=== PATIENT | female | born 1950 | race Caucasian/White ===

== ENCOUNTER 2022-01-07 13:30 | Inpatient (IN) | payer MEDICARE, OTHER ==
[2022-01-07 13:49] LABS: Glucose,Whole Blood 180 mg/dL (75-99)
[2022-01-07] MEDS ORDERED: SODIUM CHLORIDE 0.9% 1,000 ML IV STA (14:12)
--- NOTE | 2022-01-07 14:20 | ED ---
General Adult HPI - General Chief complaint: Altered Mental Status Stated complaint: AMS Time Seen by Provider: 01/07/22 13:54 Source: patient, EMS Mode of arrival: EMS Limitations: altered mental status - History of Present Illness Initial comments: Dictation was produced using Captio dictation software. please excuse any grammatical, word or spelling errors. Chief Complaint: 71-year-old female brought in from that [facility] for altered mental status History of Present Illness: Chin is a 71-year-old female she has multiple comorbidities. Patient is currently a resident [facility]. She was recently admitted at [facility] evaluated treated and discharged for cellulitis. Patient had a PICC line that was placed. She is receiving IV and oral antibiotics to treat cellulitis of the right lower extremity. According to nurses to receiving report from EMS patient is brought to the emergency d epartment for borderline low blood pressures, altered mental status for the last 2 days. Patient is a reliable historian. Said she feels a little lightheaded. She also reports feeling foggy in the brain. Denies any numbness or paresthesias. Patient has any constitutional symptoms. Denies any chest pain. She does have a mild cough. Denies any nausea or vomiting. No abdominal pain. Patient refusing evaluation of the right lower leg. She does not want me under any circumstance removing that the bandage to the right lower leg. The ROS documented in this emergency department record has been reviewed and confirmed by me. Those systems with pertinent positive or negative responses have been documented in the HPI. All other systems are other negative and/or noncontributory. PHYSICAL EXAM: General Impression: Alert and oriented x4/4, not in acute distress HEENT: Normocephalic atraumatic, extra-ocular movements intact, pupils equal and reactive to light bilaterally, mucous membranes moist. Cardiovascular: Heart regular rate and rhythm Chest: Able to complete full sentences, no retractions, no tachypnea Abdomen: abdomen soft, non-tender, non-distended, no organomegaly Musculoskeletal: Pulses present and equal in all extremities, no peripheral edema Motor: no focal deficits noted Neurological: CN II-XII grossly intact, no focal motor or sensory deficits noted Skin: Intact with no visualized rashes Psych: Normal affect and mood ED course: 71-year-old female who is currently at [facility] for rehab presents to the ER for borderline low blood pressure and altered mental status 2 days. All signs upon arrival shows blood pressure of 90/64, temperature of 99.9, 90% oxygen on room air. Patient is not cooperative. She tells me not to remove the bandage to right lower extremity where the cellulitis was diagnosed. She states that she does not want me to take the bandage off because her wound was just dressed. The distal toes are exposed and appear to be unremarkable. Patient has mild cough but no other localizing symptoms.Rectal temperature is 11.1. Patient given Tylenol. Maalox documentation was reviewed. Patient is on cefepime. There was no oral antibiotics on patient's medication list. Computed tomography scan of brain is unremarkable. Chest x-ray shows. Chest x- ray shows cardiomegaly with suspected pulmonary edema questionable posterior lung base infiltration the lateral view. Laboratory evaluation obtained. CBC unremarkable. Coag panel is negative. Metabolic panel is within acceptable limits. 4 panel by PCR is negative. Patient is allegedly already on cefepime. Patient be admitted for further care with consultation to infectious disease. - Related Data Home Medications Medication Instructions Recorded Confirmed Albuterol Nebulized [Ventolin 2.5 mg INHALATION RT-Q6H PRN 01/07/22 01/07/22 Nebulized] Aspirin EC [Ecotrin Low Dose] 81 mg PO DAILY@79901/07/22 01/07/22 Atorvastatin [Lipitor] 40 mg PO HS@199901/07/22 01/07/22 Baclofen [Lioresal] 10 mg PO TID@0600,1400,2200 01/07/22 01/07/22 Carvedilol [Coreg] 3.125 mg PO BID@799,199901/07/22 01/07/22 Cefepime [Maxipime] 2 gm IVP TID@0000,0800,1600 01/07/22 01/07/22 Cholecalciferol (Vitamin D3) 250 mcg PO DAILY@79901/07/22 01/07/22 [Vitamin D3 (125 MCG = 5,000 IU)] Cyanocobalamin [Vitamin B-12] 1,000 mcg PO DAILY@0800 01/07/22 01/07/22 Diclofenac Sodium Gel [Voltaren 1 applic TOPICAL QID@00,06,12,18 01/07/22 06/14/22 Gel] Docusate [Colace] 100 mg PO BID@08,199901/07/22 01/07/22 Ferrous Sulfate [Feosol] 325 mg PO DAILY@79901/07/22 01/07/22 Furosemide [Lasix] 20 mg PO DIRECTED 01/07/22 01/07/22 Furosemide [Lasix] 40 mg PO DAILY@79901/07/22 01/07/22 Gabapentin [Neurontin] 600 mg PO TID@0600,1400,219901/07/22 01/07/22 HYDROcodone/APAP 10-325MG [Kennard 1 tab PO Q8H PRN 01/07/22 01/07/22 10-325] Hydrocerin Cream 1 applic TOPICAL BID@08,199901/07/22 01/07/22 Hydroxychloroquine Sulfate 200 mg PO DAILY@89901/07/22 01/07/22 [Plaquenil] Loratadine 10 mg PO DAILY@79901/07/22 01/07/22 Magnesium Chloride-Calcium 64-106 1 tab PO DAILY@79901/07/22 01/07/22 Mg Omeprazole 20 mg PO HS@199901/07/22 01/07/22 Sacubitril/Valsartan [Entresto 24 1 tab PO BID@08,199901/07/22 01/07/22 mg-26 mg Tablet] Spironolactone [Aldactone] 25 mg PO DAILY@0800 PRN 01/07/22 01/07/22 allopurinoL 300 mg PO DAILY@79901/07/22 01/07/22 guaiFENesin-DM 100-10MG/5ML 5 ml PO Q4H PRN 01/07/22 01/07/22 [Robitussin DM] metroNIDAZOLE [Flagyl] 500 mg PO DIRECTED 01/07/22 01/07/22 metroNIDAZOLE [Flagyl] 500 mg PO TID@0600,1400,219901/07/22 01/07/22 polyethylene glycoL 3350 [Miralax] 17 gm PO DAILY@0801/07/22 01/07/22 predniSONE 5 mg PO DAILY@0801/07/22 01/07/22 Allergies Allergy/AdvReac Type Severity Reaction Status Date / Time Iodinated Contrast Media Allergy Unknown Verified 01/07/22 15:46 methotrexate Allergy Unknown Verified 01/07/22 15:46 Penicillins Allergy Unknown Verified 01/07/22 15:46 shellfish derived [Shellfish] Allergy Unknown Verified 01/07/22 15:46 Sulfa (Sulfonamide Allergy Unknown Verified 01/07/22 15:46 Antibiotics) theophylline Allergy Unknown Verified 01/07/22 15:46 Review of Systems ROS Statement: Those systems with pertinent positive or pertinent negative responses have been documented in the HPI. ROS Other: All systems not noted in ROS Statement are negative. Past Medical History Past Medical History: Coronary Artery Disease (CAD), Heart Failure, GERD/Reflux, Hyperlipidemia, Hypertension, Rheumatoid Arthritis (RA) Additional Past Medical History / Comment(s): cellulitis, anemia History of Any Multi-Drug Resistant Organisms: None Reported Past Surgical History: No Surgical Hx Reported Past Psychological History: No Psychological Hx Reported Smoking Status: Unknown if ever smoked Past Alcohol Use History: None Reported Past Drug Use History: None Reported General Exam Limitations: altered mental status Course Vital Signs 01/07/22 01/07/22 01/07/22 13:49 14:22 16:53 Temperature 99.9 F H 101.1 F H 98.5 F Pulse Rate 56 L 86 Respiratory 20 20 Rate Blood Pressure 90/64 110/70 O2 Sat by Pulse 90 L 94 L Oximetry Medical Decision Making - Lab Data Result diagrams: 01/07/22 14:44 01/07/22 14:44 Lab Results 01/07/22 01/07/22 01/07/22 Range/Units 13:47 14:33 14:44 WBC 7.5 (3.8-10.6) k/uL RBC 3.53 L (3.80-5.40) m/uL Hgb 10.1 L (11.4-16.0) gm/dL Hct 34.0 (34.0-46.0) % MCV 96.4 (80.0-100.0) fL MCH 28.7 (25.0-35.0) pg MCHC 29.8 L (31.0-37.0) g/dL RDW 16.5 H (11.5-15.5) % Plt Count 365 (150-450) k/uL MPV 7.6 Neutrophils % 83 % Lymphocytes % 8 % Monocytes % 6 % Eosinophils % 1 % Basophils % 1 % Neutrophils # 6.2 (1.3-7.7) k/uL Lymphocytes # 0.6 L (1.0-4.8) k/uL Monocytes # 0.5 (0-1.0) k/uL Eosinophils # 0.1 (0-0.7) k/uL Basophils # 0.1 (0-0.2) k/uL Hypochromasia Slight Anisocytosis Slight PT (9.0-12.0) sec INR (<1.2) APTT (22.0-30.0) sec Sodium (137-145) mmol/L Potassium (3.5-5.1) mmol/L Chloride (98-107) mmol/L Carbon Dioxide (22-30) mmol/L Anion Gap mmol/L BUN (7-17) mg/dL Creatinine (0.52-1.04) mg/dL Est GFR (CKD-EPI)AfAm (>60 ml/min/1.73 sqM) Est GFR (CKD-EPI)NonAf (>60 ml/min/1.73 sqM) Glucose (74-99) mg/dL POC Glucose (mg/dL) 180 H (75-99) mg/dL POC Glu Supervisor [employer] ID December, Plasma Lactic Acid Pako (0.7-2.0) mmol/L Calcium (8.4-10.2) mg/dL Total Bilirubin (0.2-1.3) mg/dL AST (14-36) U/L ALT (4-34) U/L Alkaline Phosphatase (38-126) U/L Total Protein (6.3-8.2) g/dL Albumin (3.5-5.0) g/dL Influenza Type A (PCR) Not Detected (Not Detectd) Influenza Type B (PCR) Not Detected (Not Detectd) RSV (PCR) Not Detected (Not Detectd) SARS-CoV-2 (PCR) Not Detected (Not Detectd) 01/07/22 01/07/22 01/07/22 Range/Units 14:44 14:44 14:44 WBC (3.8-10.6) k/uL RBC (3.80-5.40) m/uL Hgb (11.4-16.0) gm/dL Hct (34.0-46.0) % MCV (80.0-100.0) fL MCH (25.0-35.0) pg MCHC (31.0-37.0) g/dL RDW (11.5-15.5) % Plt Count (150-450) k/uL MPV Neutrophils % % Lymphocytes % % Monocytes % % Eosinophils % % Basophils % % Neutrophils # (1.3-7.7) k/uL Lymphocytes # (1.0-4.8) k/uL Monocytes # (0-1.0) k/uL Eosinophils # (0-0.7) k/uL Basophils # (0-0.2) k/uL Hypochromasia Anisocytosis PT 13.7 H (9.0-12.0) sec INR 1.3 H (<1.2) APTT 26.9 (22.0-30.0) sec Sodium 136 L (137-145) mmol/L Potassium 3.6 (3.5-5.1) mmol/L Chloride 98 (98-107) mmol/L Carbon Dioxide 32 H (22-30) mmol/L Anion Gap 6 mmol/L BUN 29 H (7-17) mg/dL Creatinine 0.91 (0.52-1.04) mg/dL Est GFR (CKD-EPI)AfAm 72 (>60 ml/min/1.73 sqM) Est GFR (CKD-EPI)NonAf 63 (>60 ml/min/1.73 sqM) Glucose 150 H (74-99) mg/dL POC Glucose (mg/dL) (75-99) mg/dL POC Glu Supervisor [employer] ID Plasma Lactic Acid Pako 0.8 (0.7-2.0) mmol/L Calcium 8.8 (8.4-10.2) mg/dL Total Bilirubin 0.4 (0.2-1.3) mg/dL AST 22 (14-36) U/L ALT 12 (4-34) U/L Alkaline Phosphatase 96 (38-126) U/L Total Protein 6.5 (6.3-8.2) g/dL Albumin 3.2 L (3.5-5.0) g/dL Influenza Type A (PCR) (Not Detectd) Influenza Type B (PCR) (Not Detectd) RSV (PCR) (Not Detectd) SARS-CoV-2 (PCR) (Not Detectd) Disposition Clinical Impression: Pyrexia Disposition: ADMITTED IP TO THIS HOSP Condition: Fair Referrals: Nonstaff,Physician [Primary Care Provider] - 1-2 days Decision Time: 17:59
[2022-01-07] MEDS ORDERED: ACETAMINOPHEN TAB 500 MG TAB PO STA (14:33)
[2022-01-07 15:02] LABS: Anisocytosis Slight; Basophils # (A) 0.1 k/uL (0-0.2); Basophils % (A) 1 %; Eosinophils # (A) 0.1 k/uL (0-0.7); Eosinophils % (A) 1 %; HGB 10.1 gm/dL (11.4-16.0); Hypochromasia Slight; Lymphocytes # (A) 0.6 k/uL (1.0-4.8); Lymphocytes % (A) 8 %; MCH 28.7 pg (25.0-35.0); MCHC 29.8 g/dL (31.0-37.0); MCV 96.4 fL (80.0-100.0); Mean Platelet Volume 7.6; Monocytes # (A) 0.5 k/uL (0-1.0); Monocytes % (A) 6 %; Neutrophils # (A) 6.2 k/uL (1.3-7.7); Neutrophils % (A) 83 %; Platelet Count 365 k/uL (150-450); RBC 3.53 m/uL (3.80-5.40); RDW 16.5 % (11.5-15.5); WBC 7.5 k/uL (3.8-10.6)
[2022-01-07 15:11] LABS: INR 1.3 (<1.2); Partial Thromboplastin Time 26.9 sec (22.0-30.0); Prothrombin Time 13.7 sec (9.0-12.0)
[2022-01-07 15:42] LABS: Albumin 3.2 g/dL (3.5-5.0); Calcium 8.8 mg/dL (8.4-10.2); Potassium 3.6 mmol/L (3.5-5.1); Total Bilirubin 0.4 mg/dL (0.2-1.3); Total Protein 6.5 g/dL (6.3-8.2)
--- NOTE | 2022-01-07 16:28 | XR ---
EXAMINATION TYPE: XR chest 2V DATE OF EXAM: 01/07/2022 COMPARISON: NONE HISTORY: Cough TECHNIQUE: Frontal and lateral views of the chest are obtained. FINDINGS: Suboptimal x-ray with poor penetration. Increased cardiac size, recommend correlation with echocardio graphic results. Associated pericardial effusion can't be excluded. Subtle density superimposed on the inferior aspect of the thoracic spine in the lateral view, underly ing pulmonary infiltration at that location can't be excluded, please correlate mechanically. Congested pulmonary vasculature with prominent interstitial markings suggestive of mild pulmonary stevie ma. Grossly unremarkable remainder of the lungs. No sizable pleural effusion or definite pneumothorax. Dextroscoliosis and degenerative changes of the thoracic spine. Right-sided PICC line with the tip is likely at the atriocaval junction. IMPRESSION: Cardiomegaly with suspected pulmonary edema and questionable posterior lung base infiltration in the lateral view as described above, please correlate clinically.
--- NOTE | 2022-01-07 16:57 | CT ---
EXAMINATION TYPE: CT brain wo con CT DLP: 1135.4 mGycm, Automated exposure control for dose reduction was used. DATE OF EXAM: 01/07/2022 4:47 PM COMPARISON: None. CLINICAL INDICATION:Female, 71 years old with history of altered mental status, ams TECHNIQUE: Brain: Multiple axial CT images of the brain were obtained without IV contrast. FINDINGS: Brain: Extra-axial spaces: No abnormal extra-axial fluid collections. Ventricular system: Dilatation in proportion to cerebral atrophy. Cerebral parenchyma: Cerebral atrophy. No acute intraparenchymal hemorrhage or mass effect. The du -white junction is well differentiated. Scattered hypoattenuating areas are seen within the white mat ter. Cerebellum: Unremarkable. Mass effect: No evidence of midline shift. Intracranial vasculature: Atherosclerotic calcifications of the intracranial vessels. Soft tissues: Normal. Calvarium/osseous structures: No depressed skull fracture. Paranasal sinuses and mastoid air cells: Mild scattered paranasal sinus disease. Visualized orbits: Orbital contents are intact. IMPRESSION: 1. No acute intracranial process. 2. Nonspecific white matter changes, likely secondary to chronic small vessel ischemic disease.
[2022-01-07] MEDS ORDERED: NALOXONE 0.4 MG/ML 1 ML VIAL IV PRN (17:58)
[2022-01-07] MEDS: ACETAMINOPHEN TAB 325 MG TAB PO PRN (23:53)
[2022-01-07] MEDS: SODIUM CHLORIDE 0.9% 1,000 ML IV SCH (23:54)
[2022-01-08 09:57] LABS: Amorphous Sediment,Urine Rare /hpf; Appearance,Urine Cloudy (Clear); Bacteria,Urine Rare /hpf; Bilirubin,Urine Negative (Negative); Blood,Urine Moderate (Negative); Budding Yeast,Urine Few /hpf; Color,Urine Yellow; Glucose,Urine (UA) Negative (Negative); Ketones,Urine Negative (Negative); Leukocyte Esterase,Urine Small (Negative); Mucus,Urine Rare /hpf; Nitrite,Urine Negative (Negative); Protein,Urine 2+ (Negative); RBC,Urine 2 /hpf (0-5); Specific Gravity,Urine 1.016 (1.001-1.035); Squamous Epithelial Cell,Urine 6 /hpf (0-4); Urobilinogen,Urine <2.0 mg/dL (<2.0); WBC,Urine 5 /hpf (0-5)
[2022-01-08] MEDS ORDERED: DOXYCYCLINE 100 MG in SODIUM CHLORIDE 0.9% 100 ML IVPB ONE (10:31)
[2022-01-08 11:56] LABS: Anisocytosis Slight; Basophils % (A) 0 %; Eosinophils # (A) 0.2 k/uL (0-0.7); Eosinophils % (A) 3 %; HCT 36.1 % (34.0-46.0); HGB 11.1 gm/dL (11.4-16.0); Hypochromasia Moderate; Lymphocytes # (A) 0.7 k/uL (1.0-4.8); Lymphocytes % (A) 11 %; MCH 29.7 pg (25.0-35.0); MCHC 30.7 g/dL (31.0-37.0); MCV 96.9 fL (80.0-100.0); Macrocytosis Slight; Monocytes # (A) 0.3 k/uL (0-1.0); Monocytes % (A) 5 %; Neutrophils # (A) 5.5 k/uL (1.3-7.7); Neutrophils % (A) 81 %; Platelet Count 380 k/uL (150-450); RBC 3.72 m/uL (3.80-5.40); WBC 6.7 k/uL (3.8-10.6)
[2022-01-08 12:42] LABS: African American GFR (CKD) 80 (>60 ml/min/1.73 sqM); Anion Gap 10 mmol/L; Blood Urea Nitrogen 31 mg/dL (7-17); Calcium 8.6 mg/dL (8.4-10.2); Carbon Dioxide 30 mmol/L (22-30); Chloride 98 mmol/L (98-107); Glucose 110 mg/dL (74-99); Non-African American GFR(CKD) 69 (>60 ml/min/1.73 sqM); Potassium 3.3 mmol/L (3.5-5.1); Sodium 138 mmol/L (137-145)
[2022-01-08] MEDS: ONDANSETRON 4 MG/2 ML VIAL IVP PRN (13:14)
[2022-01-08] MEDS: GABAPENTIN 300 MG CAP PO SCH ×2 (15:34→19:47)
[2022-01-08] MEDS: HEPARIN SODIUM,PORCINE/PF 5,000 UNIT/0.5 ML SYRINGE SQ SCH ×2 (15:34→23:05)
[2022-01-08] MEDS: SODIUM CHLORIDE 0.9% 1,000 ML IV SCH (15:40)
[2022-01-08] MEDS ORDERED: POTASSIUM CHLORIDE ER 20 MEQ TAB.ER PO STA (16:13)
--- NOTE | 2022-01-08 16:25 | P.HPIM ---
History of Present Illness H&P Date: 01/08/22 Chief Complaint: Altered mental status Patient is a 71-year-old female with a known history of coronary artery disease, hypertension, hyperkalemia, rheumatoid arthritis was sent to Hospital from extended care facility due to altered mental status for the past 2 days. Joshua olson Patient was recently admitted to [facility] due to right lower extremity cellulitis and wound infection and was discharged to [facility] on cefepime and Flagyl. Patient is a poor historian and confused. Could not provide much history. Denied any complaints of leg pain. No fever no chills. No chest pain or shortness of breath. Denied any headache or dizziness or lightheadedness. Patient was febrile with T-max 101.1 on admission. Chest x-ray showed cardiomegaly with suspected pulmonary edema and questionable posterior lung infiltration in the lateral view. CT head showed no acute intracranial process. Nonspecific white matter changes. Likely secondary to chronic small ischemic disease. EKG showed sinus rhythm with premature atrial complexes. Laboratory data showed WBC 7.9 hemoglobin 10.1 and platelets 365 INR 1.3 Sodium 136 potassium 3.6 chloride 98 bicarb is 32 BUN 29 and creatinine 0.91 and blood sugar is 150 Pro-calcitonin level is 0.0 to Urinalysis showed cloudy with 2+ protein and moderate blood. Small leukocyte esterase. Influenza EA, B, RSV and covid 19 PCR not detected. Review of Systems Complete review of systems could not be obtained from the patient except as per HPI. Past Medical History Past Medical History: Coronary Artery Disease (CAD), Heart Failure, GERD/Reflux, Hyperlipidemia, Hypertension, Rheumatoid Arthritis (RA) Additional Past Medical History / Comment(s): cellulitis, anemia History of Any Multi-Drug Resistant Organisms: None Reported Past Surgical History: No Surgical Hx Reported Past Anesthesia/Blood Transfusion Reactions: Unable to Obtain Past Psychological History: No Psychological Hx Reported Smoking Status: Unknown if ever smoked Past Alcohol Use History: None Reported Past Drug Use History: None Reported Medications and Allergies Home Medications Medication Instructions Recorded Confirmed Type Albuterol Nebulized [Ventolin 2.5 mg INHALATION RT-Q6H PRN 01/07/22 01/07/22 History Nebulized] Aspirin EC [Ecotrin Low Dose] 81 mg PO DAILY@0800 01/07/22 01/07/22 History Atorvastatin [Lipitor] 40 mg PO HS@199901/07/22 01/07/22 History Baclofen [Lioresal] 10 mg PO TID@0600,1400,22001/07/22 01/07/22 History Carvedilol [Coreg] 3.125 mg PO BID@08,199901/07/22 01/07/22 History Cefepime [Maxipime] 2 gm IVP TID@0000,0800,1600 01/07/22 01/07/22 History Cholecalciferol (Vitamin D3) 250 mcg PO DAILY@79901/07/22 01/07/22 History [Vitamin D3 (125 MCG = 5,000 IU)] Cyanocobalamin [Vitamin B-12] 1,000 mcg PO DAILY@79901/07/22 01/07/22 History Diclofenac Sodium Gel [Voltaren 1 applic TOPICAL QID@00,06,,18 01/07/22 01/07/22 History Gel] Docusate [Colace] 100 mg PO BID@08,199901/07/22 01/07/22 History Ferrous Sulfate [Feosol] 325 mg PO DAILY@79901/07/22 01/07/22 History Furosemide [Lasix] 20 mg PO DIRECTED 01/07/22 01/07/22 History Furosemide [Lasix] 40 mg PO DAILY@79901/07/22 01/07/22 History Gabapentin [Neurontin] 600 mg PO TID@0600,1400,2200 01/07/22 01/07/22 History HYDROcodone/APAP 10-325MG [Pomeroy 1 tab PO Q8H PRN 01/07/22 01/07/22 History 10-325] Hydrocerin Cream 1 applic TOPICAL BID@0800,199901/07/22 01/07/22 History Hydroxychloroquine Sulfate 200 mg PO DAILY@89901/07/22 01/07/22 History [Plaquenil] Loratadine 10 mg PO DAILY@79901/07/22 01/07/22 History Magnesium Chloride-Calcium 64-106 1 tab PO DAILY@79901/07/22 01/07/22 History Mg Omeprazole 20 mg PO HS@199901/07/22 01/07/22 History Sacubitril/Valsartan [Entresto 24 1 tab PO BID@08,199901/07/22 01/07/22 History mg-26 mg Tablet] Spironolactone [Aldactone] 25 mg PO DAILY@0800 PRN 01/07/22 01/07/22 History allopurinoL 300 mg PO DAILY@0800 01/07/22 01/07/22 History guaiFENesin-DM 100-10MG/5ML 5 ml PO Q4H PRN 01/07/22 01/07/22 History [Robitussin DM] metroNIDAZOLE [Flagyl] 500 mg PO DIRECTED 01/07/22 01/07/22 History metroNIDAZOLE [Flagyl] 500 mg PO TID@0600,1400,2200 01/07/22 01/07/22 History polyethylene glycoL 3350 [Miralax] 17 gm PO DAILY@0800 01/07/22 01/07/22 History predniSONE 5 mg PO DAILY@0800 01/07/22 01/07/22 History Allergies Allergy/AdvReac Type Severity Reaction Status Date / Time Iodinated Contrast Media Allergy Unknown Verified 01/07/22 15:46 methotrexate Allergy Unknown Verified 01/07/22 15:46 Penicillins Allergy Unknown Verified 01/07/22 15:46 shellfish derived [Shellfish] Allergy Unknown Verified 01/07/22 15:46 Sulfa (Sulfonamide Allergy Unknown Verified 01/07/22 15:46 Antibiotics) theophylline Allergy Unknown Verified 01/07/22 15:46 Physical Exam Vitals: Vital Signs Temp Pulse Pulse Resp BP Pulse Ox 01/08/22 09:48 98.0 F 81 20 115/78 98 01/08/22 06:24 97.1 F L 86 18 120/67 100 01/08/22 00:23 98.2 F 88 20 93 L 01/08/22 00:03 97.9 F 86 20 98 01/07/22 16:53 98.5 F 86 20 110/70 94 L 01/07/22 14:22 101.1 F H 01/07/22 13:49 99.9 F H 56 L 20 90/64 90 L Intake and Output 01/07/22 01/08/22 01/08/22 22:59 06:59 14:59 Other: Weight 74.843 kg PHYSICAL EXAMINATION: Patient is lying in the bed comfortably, no acute distress, awake alert and able to talk but confused and repeating the same question.. HEENT: Normocephalic. Neck is supple. Pupils reactive. Nostrils clear. Oral cavity is moist. Neck reveals no JVD, carotid bruits, or thyromegaly. CHEST EXAMINATION: Trachea is central. Symmetrical expansion. Lung hunt clear to auscultation and percussion. CARDIAC: Normal S1, S2 with no gallops. No murmurs ABDOMEN: Soft. Bowel sounds normal. No organomegaly. No abdominal bruits. Extremities: Right lower extremity wound on the calf region with purulent discharge. Minimal redness and warm.. No clubbing or cyanosis Neurologically awake, alert, oriented 1 with well-coordinated movements. No loss focal deficits noted Skin: No rash or skin lesions. Psychiatric: Coperative. Could not be assessed completely Musculoskeletal: No joint swelling or deformity. Results CBC & Chem 7: 01/08/22 11:34 01/08/22 11:34 Labs: Abnormal Lab Results - Last 24 Hours (Table) 01/07/22 01/07/22 01/07/22 Range/Units 13:47 14:44 14:44 RBC 3.53 L (3.80-5.40) m/uL Hgb 10.1 L (11.4-16.0) gm/dL MCHC 29.8 L (31.0-37.0) g/dL RDW 16.5 H (11.5-15.5) % Lymphocytes # 0.6 L (1.0-4.8) k/uL PT 13.7 H (9.0-12.0) sec INR 1.3 H (<1.2) Sodium (137-145) mmol/L Carbon Dioxide (22-30) mmol/L BUN (7-17) mg/dL Glucose (74-99) mg/dL POC Glucose (mg/dL) 180 H (75-99) mg/dL Albumin (3.5-5.0) g/dL Procalcitonin (0.02-0.09) ng/mL Urine Appearance (Clear) Urine Protein (Negative) Urine Blood (Negative) Ur Leukocyte Esterase (Negative) Ur Squamous Epith Cells (0-4) /hpf Amorphous Sediment (None) /hpf Urine Bacteria (None) /hpf Urine Mucus (None) /hpf Urine Yeast (Budding) (None) /hpf 01/07/22 01/07/22 01/08/22 Range/Units 14:44 17:58 09:48 RBC (3.80-5.40) m/uL Hgb (11.4-16.0) gm/dL MCHC (31.0-37.0) g/dL RDW (11.5-15.5) % Lymphocytes # (1.0-4.8) k/uL PT (9.0-12.0) sec INR (<1.2) Sodium 136 L (137-145) mmol/L Carbon Dioxide 32 H (22-30) mmol/L BUN 29 H (7-17) mg/dL Glucose 150 H (74-99) mg/dL POC Glucose (mg/dL) (75-99) mg/dL Albumin 3.2 L (3.5-5.0) g/dL Procalcitonin 0.22 H (0.02-0.09) ng/mL Urine Appearance Cloudy H (Clear) Urine Protein 2+ H (Negative) Urine Blood Moderate H (Negative) Ur Leukocyte Esterase Small H (Negative) Ur Squamous Epith Cells 6 H (0-4) /hpf Amorphous Sediment Rare H (None) /hpf Urine Bacteria Rare H (None) /hpf Urine Mucus Rare H (None) /hpf Urine Yeast (Budding) Few H (None) /hpf Thrombosis Risk Factor Assmnt - DVT/VTE Prophylaxis DVT/VTE Prophylaxis: Pharmacologic Prophylaxis ordered - Choose All That Apply Any of the Below Risk Factors Present?: Yes Each Factor Represents 1 point: Obesity (BMI >25) Each Risk Factor Represents 2 Points: Age 61-74 years Thrombosis Risk Factor Assessment Total Risk Factor Score: 3 Thrombosis Risk Factor Assessment Level: Moderate Risk Assessment and Plan Assessment: Fever with chest x-ray findings of possible lung base infiltration/pneumonia. Recent right lower extremity cellulitis and calf wound infection and was discharged home on cefepime and metronidazole from [facility]. Complete report not available at this time. Metabolic and toxic encephalopathy due to infection. Coronary artery disease Chronic CHF. Ejection fraction not known. To moderate arthritis currently on Plaquenil and prednisone 5 mg daily Hypertension Hyperlipidemia DVT prophylaxis with heparin subcu Plan: Patient will be continued on empiric antibiotics in the form of ceftriaxone and doxycycline. Right lower extremity wound cultures were sent. Continue with Coreg, aspirin and statins. ID was consulted. Continue GI and urine prophylaxis and symptomatic management for nausea. Follow closely. Prognosis is guarded time. Time with Patient: Greater than 30
[2022-01-08] MEDS: ACETAMINOPHEN TAB 325 MG TAB PO PRN (16:31)
[2022-01-08] MEDS: PANTOPRAZOLE 40 MG TABLET PO SCH (19:47)
[2022-01-08] MEDS: ATORVASTATIN 40 MG TAB PO SCH (19:47)
[2022-01-08] MEDS: carvediloL 3.125 MG TAB PO SCH (19:47)
--- NOTE | 2022-01-08 22:29 | P.CONS ---
History of Present Illness - Reason for Consult Consult date: 01/08/22 Fever Requesting physician: Jonathan Chaudhry - Chief Complaint Mental status changes x2 days - History of Present Illness Patient is a 71-year-old female with a past medical history difficult for rheumatoid arthritis hypertension currently in [facility] resident patient was recently admitted at [facility] with right lower extremity wound and cellulitis in this patient apparently he did have a some sort of grafting to the right posterior leg wound area and the patient was discharged to the [facility] on cefepime and Flagyl patient has been sent to the [facility] ER yesterday afternoon for evaluation of mental status changes and a low blood pressure symptom has been going on for the last 2 days before the patient was brought into the ER patient complaining of some lightheadedness and foggy in the brain but no other active symptoms patient at time evaluation was a pleasantly confused and elevated good historian on presentation to the hospital the patient did have a fever of 101.1 F no significant tachycardia white count was normal to with some lymphopenia BUN elevated creatinine was normal there was a low normal blood gas was mild elevated 0.2, patient did have a mildly positive UA influenza RSV and SARS-CoV-2 was negative patient did have a chest x-ray cardiomegaly suspected pulmonary edema and questionable posterior lung base infiltrate CT of the brain was negative for acute changes patient has been admitted to the hospital he was started on Rocephin and received a dose of doxycycline infectious disease was consulted for further management of antibiotic therapy Review of Systems Positive points has been mentioned in HPI complete review could not be obtained because of his underlying mental status Past Medical History Past Medical History: Coronary Artery Disease (CAD), Heart Failure, GERD/Reflux, Hyperlipidemia, Hypertension, Rheumatoid Arthritis (RA) Additional Past Medical History / Comment(s): cellulitis, anemia History of Any Multi-Drug Resistant Organisms: None Reported Past Surgical History: No Surgical Hx Reported Past Anesthesia/Blood Transfusion Reactions: Unable to Obtain Past Psychological History: No Psychological Hx Reported Smoking Status: Unknown if ever smoked Past Alcohol Use History: None Reported Past Drug Use History: None Reported Medications and Allergies Home Medications Medication Instructions Recorded Confirmed Type Albuterol Nebulized [Ventolin 2.5 mg INHALATION RT-Q6H PRN 01/07/22 01/07/22 History Nebulized] Aspirin EC [Ecotrin Low Dose] 81 mg PO DAILY@0800 01/07/22 06/14/22 History Atorvastatin [Lipitor] 40 mg PO HS@199901/07/22 01/07/22 History Baclofen [Lioresal] 10 mg PO TID@0600,1400,219901/07/22 01/07/22 History Cholecalciferol (Vitamin D3) 250 mcg PO DAILY@79901/07/22 01/07/22 History [Vitamin D3 (125 MCG = 5,000 IU)] Cyanocobalamin [Vitamin B-12] 1,000 mcg PO DAILY@79901/07/22 01/07/22 History Diclofenac Sodium Gel [Voltaren 1 applic TOPICAL QID@,,,01/07/22 01/07/22 History Gel] Docusate [Colace] 100 mg PO BID@08,199901/07/22 01/07/22 History Ferrous Sulfate [Iron (65 MG 325 mg PO DAILY@79901/07/22 01/07/22 History Elemental)] Furosemide [Lasix] 20 mg PO DIRECTED 01/07/22 01/07/22 History Furosemide [Lasix] 40 mg PO DAILY@79901/07/22 01/07/22 History Gabapentin [Neurontin] 600 mg PO TID@0600,1400,219901/07/22 01/07/22 History Hydrocerin Cream 1 applic TOPICAL BID@799,199901/07/22 01/07/22 History Hydroxychloroquine Sulfate 200 mg PO DAILY@0901/07/22 01/07/22 History [Plaquenil] Loratadine 10 mg PO DAILY@79901/07/22 01/07/22 History Magnesium Chloride-Calcium 64-106 1 tab PO DAILY@79901/07/22 01/07/22 History Mg Omeprazole 20 mg PO HS@199901/07/22 01/07/22 History Sacubitril/Valsartan [Entresto 24 1 tab PO BID@799,199901/07/22 01/07/22 History mg-26 mg Tablet] Spironolactone [Aldactone] 25 mg PO DAILY@0800 PRN 01/07/22 01/07/22 History allopurinoL 300 mg PO DAILY@79901/07/22 01/07/22 History guaiFENesin-DM 100-10MG/5ML 5 ml PO Q4H PRN 01/07/22 01/07/22 History [Robitussin DM] polyethylene glycoL 3350 [Miralax] 17 gm PO DAILY@0800 01/07/22 01/07/22 History predniSONE 5 mg PO DAILY@0800 01/07/22 01/07/22 History Metoprolol Tartrate [Lopressor] 50 mg PO BID tab 01/17/22 Rx Allergies Allergy/AdvReac Type Severity Reaction Status Date / Time Iodinated Contrast Media Allergy Unknown Verified 01/07/22 15:46 methotrexate Allergy Unknown Verified 01/07/22 15:46 Penicillins Allergy Unknown Verified 01/07/22 15:46 shellfish derived [Shellfish] Allergy Unknown Verified 01/07/22 15:46 Sulfa (Sulfonamide Allergy Unknown Verified 01/07/22 15:46 Antibiotics) theophylline Allergy Unknown Verified 01/07/22 15:46 watermelon Allergy Unknown Verified 01/16/22 14:56 Physical Exam Vitals: Vital Signs Temp Pulse Pulse Resp BP Pulse Ox 01/08/22 09:48 98.0 F 81 20 115/78 98 01/08/22 06:24 97.1 F L 86 18 120/67 100 01/08/22 00:23 98.2 F 88 20 93 L 01/08/22 00:03 97.9 F 86 20 98 01/07/22 16:53 98.5 F 86 20 110/70 94 L 01/07/22 14:22 101.1 F H 01/07/22 13:49 99.9 F H 56 L 20 90/64 90 L Intake and Output 01/07/22 01/08/22 01/08/22 22:59 06:59 14:59 Other: Weight 74.843 kg GENERAL DESCRIPTION: An elderly female lying in bed, no distress. No tachypnea or accessory muscle of respiration use. HEENT: Shows Pallor , no scleral icterus. Oral mucous membrane is dry. No pharyngeal erythema or thrush NECK: Trachea central, no thyromegaly. LUNGS: Unlabored breathing. Decreased pulses on the base. No wheeze or crackle. HEART: S1, S2, regular rate and rhythm. No loud murmur ABDOMEN: Soft, no tenderness , guarding or rigidity, no organomegaly EXTREMITIES: Right posterior leg wound did have a graft on with no surrounding redness or any drainage. SKIN: No rash, no masses palpable. NEUROLOGICAL: The patient is pleasantly confused, mood and affect normal. Results CBC & Chem 7: 01/15/22 04:32 01/15/22 04:35 Labs: Abnormal Lab Results - Last 24 Hours (Table) 01/07/22 01/07/22 01/07/22 Range/Units 13:47 14:44 14:44 RBC 3.53 L (3.80-5.40) m/uL Hgb 10.1 L (11.4-16.0) gm/dL MCHC 29.8 L (31.0-37.0) g/dL RDW 16.5 H (11.5-15.5) % Lymphocytes # 0.6 L (1.0-4.8) k/uL PT 13.7 H (9.0-12.0) sec INR 1.3 H (<1.2) Sodium (137-145) mmol/L Carbon Dioxide (22-30) mmol/L BUN (7-17) mg/dL Glucose (74-99) mg/dL POC Glucose (mg/dL) 180 H (75-99) mg/dL Albumin (3.5-5.0) g/dL Procalcitonin (0.02-0.09) ng/mL Urine Appearance (Clear) Urine Protein (Negative) Urine Blood (Negative) Ur Leukocyte Esterase (Negative) Ur Squamous Epith Cells (0-4) /hpf Amorphous Sediment (None) /hpf Urine Bacteria (None) /hpf Urine Mucus (None) /hpf Urine Yeast (Budding) (None) /hpf 01/07/22 01/07/22 01/08/22 Range/Units 14:44 17:58 09:48 RBC (3.80-5.40) m/uL Hgb (11.4-16.0) gm/dL MCHC (31.0-37.0) g/dL RDW (11.5-15.5) % Lymphocytes # (1.0-4.8) k/uL PT (9.0-12.0) sec INR (<1.2) Sodium 136 L (137-145) mmol/L Carbon Dioxide 32 H (22-30) mmol/L BUN 29 H (7-17) mg/dL Glucose 150 H (74-99) mg/dL POC Glucose (mg/dL) (75-99) mg/dL Albumin 3.2 L (3.5-5.0) g/dL Procalcitonin 0.22 H (0.02-0.09) ng/mL Urine Appearance Cloudy H (Clear) Urine Protein 2+ H (Negative) Urine Blood Moderate H (Negative) Ur Leukocyte Esterase Small H (Negative) Ur Squamous Epith Cells 6 H (0-4) /hpf Amorphous Sediment Rare H (None) /hpf Urine Bacteria Rare H (None) /hpf Urine Mucus Rare H (None) /hpf Urine Yeast (Budding) Few H (None) /hpf 01/08/22 Range/Units 11:34 RBC 3.72 L (3.80-5.40) m/uL Hgb 11.1 L (11.4-16.0) gm/dL MCHC 30.7 L (31.0-37.0) g/dL RDW 17.0 H (11.5-15.5) % Lymphocytes # 0.7 L (1.0-4.8) k/uL PT (9.0-12.0) sec INR (<1.2) Sodium (137-145) mmol/L Carbon Dioxide (22-30) mmol/L BUN (7-17) mg/dL Glucose (74-99) mg/dL POC Glucose (mg/dL) (75-99) mg/dL Albumin (3.5-5.0) g/dL Procalcitonin (0.02-0.09) ng/mL Urine Appearance (Clear) Urine Protein (Negative) Urine Blood (Negative) Ur Leukocyte Esterase (Negative) Ur Squamous Epith Cells (0-4) /hpf Amorphous Sediment (None) /hpf Urine Bacteria (None) /hpf Urine Mucus (None) /hpf Urine Yeast (Budding) (None) /hpf Assessment and Plan (1) 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 Status: Acute Code(s): L97.215 - NON-PRS CHR ULCER OF R CALF WITH MSL INVL W/O EVD OF NECR SNOMED Code(s): 5080494210999 (2) Pyrexia Status: Acute Code(s): R50.9 - FEVER, UNSPECIFIED SNOMED Code(s): 585610825 Plan: 1patient presented to hospital with mental status changes in this patient who did have a fever and recently treated at the [facility] for right lower extremity wound and cellulitis currently did have a graft to the right posterior leg wound area but no surrounding cellulitis or any foul-smelling drainage, patient abdominal soft on clinical examination urine was mildly positive, chest x-ray with no definite consolidation most interstitial infiltrate. 2we will try to obtain records from the [facility] regarding operative treatment of the right leg as well as culture data. 3discontinue Rocephin. 4start the patient on cefepime and Flagyl. 5dry protective dressing to the right posterior leg graft area and keep the ar ea of the pressure. We will follow on clinical condition and cultures to further adjust medication i f needed Thank you for this consultation will follow this patient along with you Time with Patient: Greater than 30
[2022-01-08] MEDS: metroNIDAZOLE 500 MG TAB PO SCH (23:05)
[2022-01-08] MEDS: CEFEPIME 2 GM in SODIUM CHLORIDE 0.9% 100 ML IVPB SCH (23:05)
[2022-01-09] MEDS: GABAPENTIN 300 MG CAP PO SCH ×3 (05:15→20:51)
[2022-01-09] MEDS: ACETAMINOPHEN TAB 325 MG TAB PO PRN ×3 (05:19→23:08)
[2022-01-09 06:51] LABS: Anisocytosis Slight; Basophils # (A) 0.1 k/uL (0-0.2); Basophils % (A) 1 %; Eosinophils # (A) 0.3 k/uL (0-0.7); Eosinophils % (A) 5 %; HCT 34.2 % (34.0-46.0); Hypochromasia Marked; Lymphocytes % (A) 16 %; MCH 29.3 pg (25.0-35.0); MCHC 29.2 g/dL (31.0-37.0); MCV 100.4 fL (80.0-100.0); Macrocytosis Slight; Mean Platelet Volume 7.3; Monocytes # (A) 0.3 k/uL (0-1.0); Monocytes % (A) 6 %; Neutrophils # (A) 4.3 k/uL (1.3-7.7); Neutrophils % (A) 71 %; Platelet Count 339 k/uL (150-450); RBC 3.41 m/uL (3.80-5.40); RDW 16.7 % (11.5-15.5); WBC 6.1 k/uL (3.8-10.6)
[2022-01-09] MEDS: CEFEPIME 2 GM in SODIUM CHLORIDE 0.9% 100 ML IVPB SCH ×2 (08:44→20:51)
[2022-01-09] MEDS: HYDROXYCHLOROQUINE SULFATE 200 MG TAB PO SCH (08:44)
[2022-01-09] MEDS: allopurinoL 300 MG TAB PO SCH (08:44)
[2022-01-09] MEDS: HEPARIN SODIUM,PORCINE/PF 5,000 UNIT/0.5 ML SYRINGE SQ SCH ×3 (08:44→23:08)
[2022-01-09] MEDS: CYANOCOBALAMIN 500 MCG TAB PO SCH (08:45)
[2022-01-09] MEDS: predniSONE 5 MG TAB PO SCH (08:45)
[2022-01-09] MEDS: CHOLECALCIFEROL 125 MCG (5000 IU) TABLET PO SCH (08:45)
[2022-01-09] MEDS: ASPIRIN 81 MG PO SCH (08:45)
[2022-01-09] MEDS: metroNIDAZOLE 500 MG TAB PO SCH ×3 (08:45→20:50)
[2022-01-09] MEDS: carvediloL 3.125 MG TAB PO SCH ×2 (09:18→20:51)
[2022-01-09 10:01] LABS: African American GFR (CKD) 57.7 (60.0-200.0); BUN/Creat Ratio 27.09 Ratio (12.00-20.00); Blood Urea Nitrogen 29.8 mg/dL (9.0-27.0); Calcium 8.8 mg/dL (8.7-10.3); Carbon Dioxide 27.5 mmol/L (20.0-27.5); Chloride 99 mmol/L (96-109); Glucose 111 mg/dL (70-110); Non-African American GFR(CKD) 49.8 (60.0-200.0); Potassium 3.9 mmol/L (3.5-5.5); Sodium 139 mmol/L (135-145)
--- NOTE | 2022-01-09 11:12 | P.CONS ---
History of Present Illness - Reason for Consult Consult date: 01/09/22 wound care - History of Present Illness This is a 70-year-old patient with a past medical history significant for coronary artery disease, heart failure, GERD, lipidemia, hypertension, rheumatoid arthritis, denies diabetes. Patient had a right posterior calf ulceration that was treated at [facility] wound care center where she received a graft to the site. Patient is unsure of any details related to the graft. She does have an another appointment with that facility in 2 weeks. At this time the graft is adhered to portions of the ulceration with some of the grafts unattached. Continue to relieve pressure from the site and may secure with Kerlix to avoid removal of the graft site. Review Of Systems: Constitutional: No fever, no chills, no night sweats. No weight change. No weakness, fatigue or lethargy. No daytime sleepiness. Integumentary:reports wounds, no lesions. No rash or pruritus. No unusual bruising. No change in hair or nails. Physical exam: General Appearance: Alert, cooperative, no distress, appears stated age. Skin: See HPI all other Skin color, texture, tugor normal, no rashes or lesions. Neurologic: Alert oriented x3 Assessment: 1. Nonhealing ulceration with fatty layer exposure right posterior lower extremity Plan: 1. Apply Kerlix to the site as needed. Do not remove the graft. Patient to follow-up with the procedural provider. Thank you for the consultation any questions to contact the wound care center DNP note has been reviewed and discussed with Dr. Mitchell and the impression and plan of care has been directed as dictated. Past Medical History Past Medical History: Coronary Artery Disease (CAD), Heart Failure, GERD/Reflux, Hyperlipidemia, Hypertension, Rheumatoid Arthritis (RA) Additional Past Medical History / Comment(s): cellulitis, anemia History of Any Multi-Drug Resistant Organisms: None Reported Past Surgical History: No Surgical Hx Reported Past Anesthesia/Blood Transfusion Reactions: Unable to Obtain Past Psychological History: No Psychological Hx Reported Smoking Status: Unknown if ever smoked Past Alcohol Use History: None Reported Past Drug Use History: None Reported Medications and Allergies Home Medications Medication Instructions Recorded Confirmed Type Albuterol Nebulized [Ventolin 2.5 mg INHALATION RT-Q6H PRN 01/07/22 01/07/22 History Nebulized] Aspirin EC [Ecotrin Low Dose] 81 mg PO DAILY@79901/07/22 01/07/22 History Atorvastatin [Lipitor] 40 mg PO HS@199901/07/22 01/07/22 History Baclofen [Lioresal] 10 mg PO TID@0600,1400,219901/07/22 01/07/22 History Carvedilol [Coreg] 3.125 mg PO BID@0800,199901/07/22 01/07/22 History Cefepime [Maxipime] 2 gm IVP TID@0000,0800,1600 01/07/22 01/07/22 History Cholecalciferol (Vitamin D3) 250 mcg PO DAILY@79901/07/22 01/07/22 History [Vitamin D3 (125 MCG = 5,000 IU)] Cyanocobalamin [Vitamin B-12] 1,000 mcg PO DAILY@79901/07/22 01/07/22 History Diclofenac Sodium Gel [Voltaren 1 applic TOPICAL QID@00,06,12,18 01/07/22 01/07/22 History Gel] Docusate [Colace] 100 mg PO BID@0800,199901/07/22 01/07/22 History Ferrous Sulfate [Feosol] 325 mg PO DAILY@79901/07/22 01/07/22 History Furosemide [Lasix] 20 mg PO DIRECTED 01/07/22 01/07/22 History Furosemide [Lasix] 40 mg PO DAILY@79901/07/22 01/07/22 History Gabapentin [Neurontin] 600 mg PO TID@0600,1400,219901/07/22 01/07/22 History HYDROcodone/APAP 10-325MG [Nebo 1 tab PO Q8H PRN 01/07/22 01/07/22 History 10-325] Hydrocerin Cream 1 applic TOPICAL BID@08,199901/07/22 01/07/22 History Hydroxychloroquine Sulfate 200 mg PO DAILY@0901/07/22 01/07/22 History [Plaquenil] Loratadine 10 mg PO DAILY@79901/07/22 01/07/22 History Magnesium Chloride-Calcium 64-106 1 tab PO DAILY@79901/07/22 01/07/22 History Mg Omeprazole 20 mg PO HS@199901/07/22 01/07/22 History Sacubitril/Valsartan [Entresto 24 1 tab PO BID@0800,199901/07/22 01/07/22 H istory mg-26 mg Tablet] Spironolactone [Aldactone] 25 mg PO DAILY@0800 PRN 01/07/22 01/07/22 History allopurinoL 300 mg PO DAILY@0800 01/07/22 01/07/22 History guaiFENesin-DM 100-10MG/5ML 5 ml PO Q4H PRN 01/07/22 01/07/22 History [Robitussin DM] metroNIDAZOLE [Flagyl] 500 mg PO DIRECTED 01/07/22 01/07/22 History metroNIDAZOLE [Flagyl] 500 mg PO TID@0600,1400,2200 01/07/22 01/07/22 History polyethylene glycoL 3350 [Miralax] 17 gm PO DAILY@0800 01/07/22 01/07/22 History predniSONE 5 mg PO DAILY@0800 01/07/22 01/07/22 History Allergies Allergy/AdvReac Type Severity Reaction Status Date / Time Iodinated Contrast Media Allergy Unknown Verified 01/07/22 15:46 methotrexate Allergy Unknown Verified 01/07/22 15:46 Penicillins Allergy Unknown Verified 01/07/22 15:46 shellfish derived [Shellfish] Allergy Unknown Verified 01/07/22 15:46 Sulfa (Sulfonamide Allergy Unknown Verified 01/07/22 15:46 Antibiotics) theophylline Allergy Unknown Verified 01/07/22 15:46 Physical Exam Vitals: Vital Signs Temp Pulse Resp BP Pulse Ox 01/09/22 08:33 97 01/09/22 07:24 98 F 58 L 17 92/61 97 01/09/22 02:05 97.5 F L 80 24 79/52 100 01/08/22 19:27 97.3 F L 94 22 107/69 98 01/08/22 16:38 89 20 01/08/22 15:10 97.4 F L 89 20 122/80 99 01/08/22 13:24 98.5 F Intake and Output 01/08/22 01/09/22 01/09/22 22:59 06:59 14:59 Intake Total 40 236 Output Total 300 Balance 40 -300 236 Intake: Intake, IV Titration 40 Amount Sodium Chloride 0.9% 1, 40 000 ml @ 20 mls/hr IV . Q24H [facility] Rx#:[id number] Oral 236 Output: Urine 300 Other: Voiding Method External Catheter External Catheter Results CBC & Chem 7: 01/09/22 05:59 01/09/22 06:03 Labs: Abnormal Lab Results - Last 24 Hours (Table) 01/08/22 01/08/22 01/09/22 Range/Units 11:34 11:34 05:59 RBC 3.72 L 3.41 L (3.80-5.40) m/uL Hgb 11.1 L 10.0 L (11.4-16.0) gm/dL MCV 100.4 H (80.0-100.0) fL MCHC 30.7 L 29.2 L (31.0-37.0) g/dL RDW 17.0 H 16.7 H (11.5-15.5) % Lymphocytes # 0.7 L (1.0-4.8) k/uL Potassium 3.3 L (3.5-5.1) mmol/L BUN 31 H (7-17) mg/dL Est GFR (CKD-EPI)AfAm (60.0-200.0) Est GFR (CKD-EPI)NonAf (60.0-200.0) BUN/Creatinine Ratio (12.00-20.00) Ratio Glucose 110 H (74-99) mg/dL 01/09/22 Range/Units 06:03 RBC (3.80-5.40) m/uL Hgb (11.4-16.0) gm/dL MCV (80.0-100.0) fL MCHC (31.0-37.0) g/dL RDW (11.5-15.5) % Lymphocytes # (1.0-4.8) k/uL Potassium (3.5-5.1) mmol/L BUN 29.8 H (7-17) mg/dL Est GFR (CKD-EPI)AfAm 57.7 L (60.0-200.0) Est GFR (CKD-EPI)NonAf 49.8 L (60.0-200.0) BUN/Creatinine Ratio 27.09 H (12.00-20.00) Ratio Glucose 111 H (74-99) mg/dL Assessment and Plan (1) 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
[2022-01-09] MEDS: PANTOPRAZOLE 40 MG TABLET PO SCH (20:50)
[2022-01-09] MEDS: ATORVASTATIN 40 MG TAB PO SCH (20:50)
[2022-01-10] MEDS: GABAPENTIN 300 MG CAP PO SCH ×3 (05:09→21:32)
[2022-01-10] MEDS: ACETAMINOPHEN TAB 325 MG TAB PO PRN ×3 (07:10→23:03)
[2022-01-10] MEDS: SODIUM CHLORIDE 0.9% 1,000 ML IV SCH ×2 (09:50→21:08)
[2022-01-10] MEDS: metroNIDAZOLE 500 MG TAB PO SCH ×3 (09:52→21:32)
[2022-01-10] MEDS: ASPIRIN 81 MG PO SCH (09:52)
[2022-01-10] MEDS: carvediloL 3.125 MG TAB PO SCH ×2 (09:52→21:32)
[2022-01-10] MEDS: HEPARIN SODIUM,PORCINE/PF 5,000 UNIT/0.5 ML SYRINGE SQ SCH ×3 (09:53→23:26)
[2022-01-10] MEDS: CYANOCOBALAMIN 500 MCG TAB PO SCH (09:53)
[2022-01-10] MEDS: allopurinoL 300 MG TAB PO SCH (09:53)
[2022-01-10] MEDS: CHOLECALCIFEROL 125 MCG (5000 IU) TABLET PO SCH (09:53)
[2022-01-10] MEDS: CEFEPIME 2 GM in SODIUM CHLORIDE 0.9% 100 ML IVPB SCH ×2 (09:54→21:32)
[2022-01-10] MEDS: HYDROXYCHLOROQUINE SULFATE 200 MG TAB PO SCH (09:58)
[2022-01-10] MEDS: predniSONE 5 MG TAB PO SCH (09:58)
--- NOTE | 2022-01-10 11:27 | P.PN ---
Subjective Progress Note Date: 01/09/22 Patient is a 71-year-old female with a known history of coronary artery disease, hypertension, hyperkalemia, rheumatoid arthritis was sent to Hospital from extended care facility due to altered mental status for the past 2 days. Apparently Patient was recently admitted to [facility] due to right lower extremity cellulitis and wound infection and was discharged to [facility] on cefepime and Flagyl. Patient is a poor historian and confused. Could not provide much history. Denied any complaints of leg pain. No fever no chills. No chest pain or shortness of breath. Denied any headache or dizziness or lightheadedness. Patient was febrile with T-max 101.1 on admission. Chest x-ray showed cardiome deepali with suspected pulmonary edema and questionable posterior lung infiltration in the lateral view. CT head showed no acute intracranial process. Nonspecific white matter changes. Likely secondary to chronic small ischemic disease. EKG showed sinus rhythm with premature atrial complexes. Laboratory data showed WBC 7.9 hemoglobin 10.1 and platelets 365 INR 1.3 Sodium 136 potassium 3.6 chloride 98 bicarb is 32 BUN 29 and creatinine 0.91 and blood sugar is 150 Pro-calcitonin level is 0.0 to Urinalysis showed cloudy with 2+ protein and moderate blood. Small leukocyte esterase. Influenza EA, B, RSV and covid 19 PCR not detected. 01/09/2022 Patient currently resting in the bed. Awake alert and oriented 2. Patient does have confusion and talking incoherently. Patient has been afebrile. Currently being continued on antibiotics in the form of cefepime and Flagyl with the recent infection and skin graft of the right calf region. There are any chest pain or shortness of breath. No cough or sputum production. No headache or dizziness or lightheadedness. Current medications reviewed Objective - Vital Signs Vital signs: Vital Signs Temp 98 F 01/09/22 07:24 Pulse 58 L 01/09/22 07:24 Resp 17 01/09/22 07:24 BP 92/61 01/09/22 07:24 Pulse Ox 97 01/09/22 08:33 FiO2 Intake & Output 01/08/22 01/09/22 01/09/22 18:59 06:59 18:59 Intake Total 40 236 Output Total 300 Balance 40 -300 236 Intake: Intake, IV Titration 40 Amount Sodium Chloride 0.9% 1, 40 000 ml @ 20 mls/hr IV . Q24H [facility] Rx#:[id number] Oral 236 Output: Urine 300 Other: Voiding Method External Catheter External Catheter External Catheter - Exam PHYSICAL EXAMINATION: Patient is lying in the bed comfortably, no acute distress, awake alert and able to talk but confused and repeating the same question.. HEENT: Normocephalic. Neck is supple. Pupils reactive. Nostrils clear. Oral cavity is moist. Neck reveals no JVD, carotid bruits, or thyromegaly. CHEST EXAMINATION: Trachea is central. Symmetrical expansion. Lung hunt clear to auscultation and percussion. CARDIAC: Normal S1, S2 with no gallops. No murmurs ABDOMEN: Soft. Bowel sounds normal. No organomegaly. No abdominal bruits. Extremities: Right lower extremity wound and skin graft over the calf region noted. No discharge today.. Minimal redness and warm.. No clubbing or cyanosis Neurologically awake, alert, oriented to with well-coordinated movements. No loss focal deficits noted Skin: No rash or skin lesions. Psychiatric: Coperative. Could not be assessed completely Musculoskeletal: No joint swelling or deformity. - Labs CBC & Chem 7: 01/09/22 05:59 01/09/22 06:03 Labs: Abnormal Lab Results - Last 24 Hours (Table) 01/08/22 01/08/22 01/09/22 Range/Units 11:34 11:34 05:59 RBC 3.72 L 3.41 L (3.80-5.40) m/uL Hgb 11.1 L 10.0 L (11.4-16.0) gm/dL MCV 100.4 H (80.0-100.0) fL MCHC 30.7 L 29.2 L (31.0-37.0) g/dL RDW 17.0 H 16.7 H (11.5-15.5) % Lymphocytes # 0.7 L (1.0-4.8) k/uL Potassium 3.3 L (3.5-5.1) mmol/L BUN 31 H (7-17) mg/dL Est GFR (CKD-EPI)AfAm (60.0-200.0) Est GFR (CKD-EPI)NonAf (60.0-200.0) BUN/Creatinine Ratio (12.00-20.00) Ratio Glucose 110 H (74-99) mg/dL 01/09/22 Range/Units 06:03 RBC (3.80-5.40) m/uL Hgb (11.4-16.0) gm/dL MCV (80.0-100.0) fL MCHC (31.0-37.0) g/dL RDW (11.5-15.5) % Lymphocytes # (1.0-4.8) k/uL Potassium (3.5-5.1) mmol/L BUN 29.8 H (7-17) mg/dL Est GFR (CKD-EPI)AfAm 57.7 L (60.0-200.0) Est GFR (CKD-EPI)NonAf 49.8 L (60.0-200.0) BUN/Creatinine Ratio 27.09 H (12.00-20.00) Ratio Glucose 111 H (74-99) mg/dL Assessment and Plan Assessment: Recent right lower extremity cellulitis and calf wound infection with skin graft and was discharged home on cefepime and metronidazole from [facility]. Fever with chest x-ray findings of possible lung base infiltration/pneumonia. Metabolic and toxic encephalopathy due to infection. Coronary artery disease Chronic CHF. Ejection fraction not known. To moderate arthritis currently on Plaquenil and prednisone 5 mg daily Hypertension Hyperlipidemia DVT prophylaxis with heparin subcu Plan: Patient will be continued on antibiotics the form of cefepime and Flagyl.. Right lower extremity wound cultures were sent. Wound care consult and ID is on board. Continue with Coreg, aspirin and statins. Continue GI and urine prophylaxis and symptomatic management for nausea. Follow closely. Prognosis is guarded time. Time with Patient: Greater than 30
[2022-01-10] MEDS: PANTOPRAZOLE 40 MG TABLET PO SCH (21:32)
[2022-01-10] MEDS: ATORVASTATIN 40 MG TAB PO SCH (21:32)
--- NOTE | 2022-01-10 22:26 | P.PN ---
Subjective Progress Note Date: 01/09/22 Principal diagnosis: Fever Patient is a 71-year-old female with multiple comorbidities and prison resident, with a recent admission at [facility] treated for right lower extremity cellulitis and the patient did have placement to the right posterior leg wound and was treated with IV cefepime and Flagyl presenting to the hospital for no blood pressure and mental status changes. On today's evaluation that is 01/09/2022, the patient has been afebrile patient remains to be pleasantly confused and out of it a good historian though but no specific denies any chest pain did have some cough no abdominal pain or pain to the right lower extremity wound area Objective - Vital Signs Vital signs: Vital Signs Temp 98 F 01/09/22 14:00 Pulse 91 01/09/22 14:00 Resp 18 01/09/22 14:00 BP 92/56 01/09/22 14:00 Pulse Ox 100 01/09/22 14:00 FiO2 Intake & Output 01/08/22 01/09/22 01/09/22 18:59 06:59 18:59 Intake Total 40 532 Output Total 300 Balance 40 -300 532 Intake: Intake, IV Titration 40 Amount Sodium Chloride 0.9% 1, 40 000 ml @ 20 mls/hr IV . Q24H COUNT INCLUDES THE [facility] Rx#:[id number] Oral 532 Output: Urine 300 Other: Voiding Method External Catheter External Catheter External Catheter - Exam GENERAL DESCRIPTION: An elderly female lying in bed in no distress RESPIRATORY SYSTEM: Unlabored breathing , decreased breath sounds at bases HEART: S1 S2 regular rate and rhythm , ABDOMEN: Soft , no tenderness EXTREMITIES: Right posterior leg wound with the attached no surrounding redness or any drainage - Labs CBC & Chem 7: 01/09/22 05:59 01/09/22 06:03 Labs: Abnormal Lab Results - Last 24 Hours (Table) 01/09/22 01/09/22 Range/Units 05:59 06:03 RBC 3.41 L (3.80-5.40) m/uL Hgb 10.0 L (11.4-16.0) gm/dL MCV 100.4 H (80.0-100.0) fL MCHC 29.2 L (31.0-37.0) g/dL RDW 16.7 H (11.5-15.5) % BUN 29.8 H (9.0-27.0) mg/dL Est GFR (CKD-EPI)AfAm 57.7 L (60.0-200.0) Est GFR (CKD-EPI)NonAf 49.8 L (60.0-200.0) BUN/Creatinine Ratio 27.09 H (12.00-20.00) Ratio Glucose 111 H (70-110) mg/dL Assessment and Plan (1) Pyrexia Current Visit: Yes Status: Acute Code(s): R50.9 - FEVER, UNSPECIFIED SNOMED Code(s): 389886353 Plan: 1patient presented to hospital with mental status changes in this patient who did have a fever and recently treated at the [facility] for right lower extremity wound and cellulitis currently did have a graft to the right posterior leg wound area but no surrounding cellulitis or any foul-smelling drainage, patient abdominal soft on clinical examination urine was mildly positive, chest x-ray with no definite consolidation most interstitial infiltrate. 2we will try to obtain records from the [facility] regarding operative treatment of the right leg as well as culture data. 3patient to continue with cefepime and Flagyl while waiting for the cultures to finalize . 4dry protective dressing to the right posterior leg graft area and keep the area of the pressure.
--- NOTE | 2022-01-10 22:28 | P.PN ---
Subjective Progress Note Date: 01/10/22 Principal diagnosis: Fever Patient is a 71-year-old female with multiple comorbidities and [facility] resident, with a recent admission at [facility] treated for right lower extremity cellulitis and the patient did have placement to the right posterior leg wound and was treated with IV cefepime and Flagyl presenting to the hospital for no blood pressure and mental status changes. On today's evaluation that is 01/10/2022, the patient remains to be afebrile, the patient is sleepy and lethargic today and did not provide any history no vomiting or diarrhea was reported by the nursing staff Objective - Vital Signs Vital signs: Vital Signs Temp 97.4 F L 01/10/22 08:45 Pulse 93 01/10/22 08:45 Resp 18 01/10/22 08:45 BP 143/76 01/10/22 08:45 Pulse Ox 100 01/10/22 08:45 FiO2 Intake & Output 01/09/22 01/10/22 01/10/22 18:59 06:59 18:59 Intake Total 828 350 Output Total 500 300 Balance 328 50 Intake: Oral 828 350 Output: Urine 500 300 Other: Voiding Method External Catheter External Catheter External Catheter # Voids 2 - Exam GENERAL DESCRIPTION: An elderly female lying in bed in no distress RESPIRATORY SYSTEM: Unlabored breathing , decreased breath sounds at bases HEART: S1 S2 regular rate and rhythm , ABDOMEN: Soft , no tenderness EXTREMITIES: Right posterior leg wound with the attached no surrounding redness or any drainage - Labs CBC & Chem 7: 01/09/22 05:59 01/09/22 06:03 Assessment and Plan (1) Pyrexia Current Visit: Yes Status: Acute Code(s): R50.9 - FEVER, UNSPECIFIED SNOMED Code(s): 177373787 Plan: 1patient presented to hospital with mental status changes in this patient who did have a fever and recently treated at the [facility] for right lower extremity wound and cellulitis currently did have a graft to the right posterior leg wound area but no surrounding cellulitis or any foul-smelling drainage, patient abdominal soft on clinical examination urine was mildly positive, chest x-ray with no definite consolidation most interstitial infiltrate however the patient did have elevated pro calcitonin and a possible component of pneumonia as no other obvious focus of infection. 2 patient to continue with cefepime and Flagyl while waiting for the cultures to finalize . 3dry protective dressing to the right posterior leg graft area and keep the area of the pressure. Time with Patient: Less than 30
[2022-01-11] MEDS: GABAPENTIN 300 MG CAP PO SCH ×3 (05:47→21:22)
[2022-01-11] MEDS: HEPARIN SODIUM,PORCINE/PF 5,000 UNIT/0.5 ML SYRINGE SQ SCH ×3 (08:33→23:27)
[2022-01-11] MEDS: CEFEPIME 2 GM in SODIUM CHLORIDE 0.9% 100 ML IVPB SCH ×2 (08:33→20:41)
[2022-01-11] MEDS: allopurinoL 300 MG TAB PO SCH (08:34)
[2022-01-11] MEDS: metroNIDAZOLE 500 MG TAB PO SCH ×3 (08:35→21:22)
[2022-01-11] MEDS: ASPIRIN 81 MG PO SCH (08:35)
[2022-01-11] MEDS: CHOLECALCIFEROL 125 MCG (5000 IU) TABLET PO SCH (08:35)
[2022-01-11] MEDS: CYANOCOBALAMIN 500 MCG TAB PO SCH (08:35)
[2022-01-11] MEDS: HYDROXYCHLOROQUINE SULFATE 200 MG TAB PO SCH (08:36)
[2022-01-11] MEDS: predniSONE 5 MG TAB PO SCH (08:37)
[2022-01-11] MEDS: carvediloL 3.125 MG TAB PO SCH ×2 (08:37→19:26)
[2022-01-11] MEDS: ACETAMINOPHEN TAB 325 MG TAB PO PRN ×3 (08:47→21:24)
--- NOTE | 2022-01-11 11:09 | P.PN ---
Subjective Progress Note Date: 01/10/22 Patient is a 71-year-old female with a known history of coronary artery disease, hypertension, hyperkalemia, rheumatoid arthritis was sent to Hospital from extended care facility due to altered mental status for the past 2 days. Apparently Patient was recently admitted to [facility] due to right lower extremity cellulitis and wound infection and was discharged to [facility] on cefepime and Flagyl. Patient is a poor historian and confused. Could not provide much history. Denied any complaints of leg pain. No fever no chills. No chest pain or shortness of breath. Denied any headache or dizziness or lightheadedness. Patient was febrile with T-max 101.1 on admission. Chest x-ray showed cardiome deepali with suspected pulmonary edema and questionable posterior lung infiltration in the lateral view. CT head showed no acute intracranial process. Nonspecific white matter changes. Likely secondary to chronic small ischemic disease. EKG showed sinus rhythm with premature atrial complexes. Laboratory data showed WBC 7.9 hemoglobin 10.1 and platelets 365 INR 1.3 Sodium 136 potassium 3.6 chloride 98 bicarb is 32 BUN 29 and creatinine 0.91 and blood sugar is 150 Pro-calcitonin level is 0.0 to Urinalysis showed cloudy with 2+ protein and moderate blood. Small leukocyte esterase. Influenza EA, B, RSV and covid 19 PCR not detected. 01/09/2022 Patient currently resting in the bed. Awake alert and oriented 2. Patient does have confusion and talking incoherently. Patient has been afebrile. Currently being continued on antibiotics in the form of cefepime and Flagyl with the recent infection and skin graft of the right calf region. There are any chest pain or shortness of breath. No cough or sputum production. No headache or dizziness or lightheadedness. 01/10/2022 Patient is currently resting in bed. Mental status is improving. Patient is more awake and alert. No complaints of chest pain or shortness of breath. Patient has been afebrile. No nausea vomiting or abdominal pain or diarrhea. Currently on antibiotics in the form of cefepime and Flagyl. Follow-up right lower extremity calf ulcer wound cultures. Skin graft was peeling off on one side. No purulent discharge noted. Wound dressing is being done. Laboratory data reviewed. Blood pressure is stable. Current medications reviewed Objective - Vital Signs Vital signs: Vital Signs Temp 97.6 F 01/10/22 16:16 Pulse 80 01/10/22 16:16 Resp 16 01/10/22 16:16 BP 100/63 01/10/22 16:16 Pulse Ox 99 01/10/22 16:16 FiO2 Intake & Output 01/09/22 01/10/22 01/10/22 18:59 06:59 18:59 Intake Total 828 350 Output Total 500 300 Balance 328 50 Intake: Oral 828 350 Output: Urine 500 300 Other: Voiding Method External Catheter External Catheter External Catheter # Voids 2 - Exam PHYSICAL EXAMINATION: Patient is lying in the bed comfortably, no acute distress, awake alert and able to talk but confused and repeating the same question.. HEENT: Normocephalic. Neck is supple. Pupils reactive. Nostrils clear. Oral cavity is moist. Neck reveals no JVD, carotid bruits, or thyromegaly. CHEST EXAMINATION: Trachea is central. Symmetrical expansion. Lung hunt clear to auscultation and percussion. CARDIAC: Normal S1, S2 with no gallops. No murmurs ABDOMEN: Soft. Bowel sounds normal. No organomegaly. No abdominal bruits. Extremities: Right lower extremity wound and skin graft over the calf region noted. No discharge today.. Minimal redness and warm.. No clubbing or cyanosis Neurologically awake, alert, oriented to with well-coordinated movements. No loss focal deficits noted Skin: No rash or skin lesions. Psychiatric: Coperative. Could not be assessed completely Musculoskeletal: No joint swelling or deformity. - Labs CBC & Chem 7: 01/09/22 05:59 01/09/22 06:03 Assessment and Plan Assessment: Recent right lower extremity cellulitis and calf wound infection with skin graft and was discharged home on cefepime and metronidazole from [facility]. Fever with chest x-ray findings of possible lung base infiltration/pneumonia. Metabolic and toxic encephalopathy due to infection. Coronary artery disease Chronic CHF. Ejection fraction not known. To moderate arthritis currently on Plaquenil and prednisone 5 mg daily Hypertension Hyperlipidemia DVT prophylaxis with heparin subcu Plan: Patient will be continued on antibiotics the form of cefepime and Flagyl.. Right lower extremity wound cultures were sent. Wound care consult and ID is on board. Continue with Coreg, aspirin and statins. Continue GI and urine prophylaxis and symptomatic management for nausea. Follow closely. Prognosis is guarded time. Time with Patient: Greater than 30
[2022-01-11 12:33] LABS: Anisocytosis Slight; Basophils % (A) 1 %; Eosinophils # (A) 0.2 k/uL (0-0.7); Eosinophils % (A) 4 %; HCT 31.6 % (34.0-46.0); HGB 9.5 gm/dL (11.4-16.0); Hypochromasia Marked; Lymphocytes # (A) 0.6 k/uL (1.0-4.8); Lymphocytes % (A) 13 %; MCH 29.5 pg (25.0-35.0); MCV 98.4 fL (80.0-100.0); Macrocytosis Slight; Mean Platelet Volume 7.2; Monocytes # (A) 0.2 k/uL (0-1.0); Monocytes % (A) 5 %; Neutrophils # (A) 3.5 k/uL (1.3-7.7); Neutrophils % (A) 76 %; Platelet Count 275 k/uL (150-450); RBC 3.21 m/uL (3.80-5.40); RDW 16.7 % (11.5-15.5); WBC 4.6 k/uL (3.8-10.6)
--- NOTE | 2022-01-11 12:40 | P.PN ---
Subjective Progress Note Date: 01/11/22 Principal diagnosis: Fever Patient is a 71-year-old female with multiple comorbidities and [facility] resident, with a recent admission at [facility] treated for right lower extremity cellulitis and the patient did have placement to the right posterior leg wound and was treated with IV cefepime and Flagyl presenting to the hospital for no blood pressure and mental status changes. On today's evaluation that is 01/11/2022, the patient is more awake and alert today, the patient is is afebrile, patient denies any chest pain or shortness breath she did have a cough developing the base. No abdominal pain and no diarrhea was reported by the nursing staff Objective - Vital Signs Vital signs: Vital Signs Temp 97.9 F 01/11/22 08:00 Pulse 83 01/11/22 08:04 Resp 17 01/11/22 08:04 BP 118/76 01/11/22 08:00 Pulse Ox 99 01/11/22 08:00 FiO2 Intake & Output 01/10/22 01/11/22 01/11/22 18:59 06:59 18:59 Intake Total 240 740 Output Total 800 Balance 240 -60 Intake: IV 240 240 Sodium Chloride 0.9% 1, 240 240 000 ml @ 20 mls/hr IV . Q24H [facility] Rx#:[id number] Intake, IV Titration 100 Amount Cefepime 2 gm In Sodium 100 Chloride 0.9% 100 ml @ 25 mls/hr IVPB Q12HR [facility] Rx #:[id number] Oral 400 Output: Urine 800 Other: Voiding Method External Catheter External Catheter External Catheter # Voids 1 # Bowel Movements 1 - Exam GENERAL DESCRIPTION: An elderly female lying in bed in no distress RESPIRATORY SYSTEM: Unlabored breathing , decreased breath sounds at bases HEART: S1 S2 regular rate and rhythm , ABDOMEN: Soft , no tenderness EXTREMITIES: Right posterior leg wound with the attached no surrounding redness or any drainage - Labs CBC & Chem 7: 01/11/22 12:10 01/09/22 06:03 Assessment and Plan (1) Pyrexia Current Visit: Yes Status: Acute Code(s): R50.9 - FEVER, UNSPECIFIED SNOMED Code(s): 997327094 Plan: 1patient presented to hospital with mental status changes in this patient who did have a fever and recently treated at the [facility] for right lower extremity wound and cellulitis currently did have a graft to the right posterior leg wound area but no surrounding cellulitis or any foul-smelling drainage, patient abdominal soft on clinical examination urine was mildly positive, chest x-ray with no definite consolidation most interstitial infiltrate however the patient did have elevated pro calcitonin and a possible component of pneumonia as no other obvious focus of infection. 2 dry protective dressing to the right posterior leg graft area and keep the area of the pressure. 3patient had shown clinical improvement and will continue with cefepime and Flagyl at this point Time with Patient: Less than 30
[2022-01-11 12:47] LABS: African American GFR (CKD) 60 (>60 ml/min/1.73 sqM); Anion Gap 3 mmol/L; Blood Urea Nitrogen 33 mg/dL (7-17); Calcium 8.1 mg/dL (8.4-10.2); Carbon Dioxide 30 mmol/L (22-30); Chloride 102 mmol/L (98-107); Glucose 123 mg/dL (74-99); Non-African American GFR(CKD) 52 (>60 ml/min/1.73 sqM); Potassium 3.8 mmol/L (3.5-5.1); Sodium 135 mmol/L (137-145)
[2022-01-11] MEDS: SODIUM CHLORIDE 0.9% 1,000 ML IV SCH (18:26)
[2022-01-11] MEDS: PANTOPRAZOLE 40 MG TABLET PO SCH (19:26)
[2022-01-11] MEDS: ATORVASTATIN 40 MG TAB PO SCH (19:26)
[2022-01-12] MEDS: ACETAMINOPHEN TAB 325 MG TAB PO PRN ×3 (05:05→20:54)
[2022-01-12] MEDS: GABAPENTIN 300 MG CAP PO SCH ×3 (05:05→20:53)
[2022-01-12] MEDS ORDERED: DOCUSATE 100 MG CAP PO PRN (08:36)
[2022-01-12] MEDS: CEFEPIME 2 GM in SODIUM CHLORIDE 0.9% 100 ML IVPB SCH ×2 (09:44→20:53)
[2022-01-12] MEDS: CHOLECALCIFEROL 125 MCG (5000 IU) TABLET PO SCH (09:44)
[2022-01-12] MEDS: HEPARIN SODIUM,PORCINE/PF 5,000 UNIT/0.5 ML SYRINGE SQ SCH ×2 (09:44→15:36)
[2022-01-12] MEDS: carvediloL 3.125 MG TAB PO SCH ×2 (09:45→19:08)
[2022-01-12] MEDS: ASPIRIN 81 MG PO SCH (09:45)
[2022-01-12] MEDS: CYANOCOBALAMIN 500 MCG TAB PO SCH (09:45)
[2022-01-12] MEDS: allopurinoL 300 MG TAB PO SCH (09:45)
[2022-01-12] MEDS: metroNIDAZOLE 500 MG TAB PO SCH ×3 (09:45→20:54)
[2022-01-12] MEDS: predniSONE 5 MG TAB PO SCH (09:46)
[2022-01-12] MEDS: HYDROXYCHLOROQUINE SULFATE 200 MG TAB PO SCH (09:46)
[2022-01-12] MEDS: ALBUTEROL NEBULIZED 2.5 MG/3 ML INHALATION PRN (12:15)
[2022-01-12] MEDS: SODIUM CHLORIDE 0.9% 1,000 ML IV SCH (17:15)
[2022-01-12] MEDS: PANTOPRAZOLE 40 MG TABLET PO SCH (19:08)
[2022-01-12] MEDS: ATORVASTATIN 40 MG TAB PO SCH (19:08)
--- NOTE | 2022-01-13 00:57 | P.PN ---
Subjective Progress Note Date: 01/11/22 Patient is a 71-year-old female with a known history of coronary artery disease, hypertension, hyperkalemia, rheumatoid arthritis was sent to Hospital from extended care facility due to altered mental status for the past 2 days. Apparently Patient was recently admitted to [facility] due to right lower extremity cellulitis and wound infection and was [facility] to [facility] on cefepime and Flagyl. Patient is a poor historian and confused. Could not provide much history. Denied any complaints of leg pain. No fever no chills. No chest pain or shortness of breath. Denied any headache or dizziness or lightheadedness. Patient was febrile with T-max 101.1 on admission. Chest x-ray showed cardiome deepali with suspected pulmonary edema and questionable posterior lung infiltration in the lateral view. CT head showed no acute intracranial process. Nonspecific white matter changes. Likely secondary to chronic small ischemic disease. EKG showed sinus rhythm with premature atrial complexes. Laboratory data showed WBC 7.9 hemoglobin 10.1 and platelets 365 INR 1.3 Sodium 136 potassium 3.6 chloride 98 bicarb is 32 BUN 29 and creatinine 0.91 and blood sugar is 150 Pro-calcitonin level is 0.0 to Urinalysis showed cloudy with 2+ protein and moderate blood. Small leukocyte esterase. Influenza EA, B, RSV and covid 19 PCR not detected. 01/09/2022 Patient currently resting in the bed. Awake alert and oriented 2. Patient does have confusion and talking incoherently. Patient has been afebrile. Currently being continued on antibiotics in the form of cefepime and Flagyl with the recent infection and skin graft of the right calf region. There are any chest pain or shortness of breath. No cough or sputum production. No headache or dizziness or lightheadedness. 01/10/2022 Patient is currently resting in bed. Mental status is improving. Patient is more awake and alert. No complaints of chest pain or shortness of breath. Patient has been afebrile. No nausea vomiting or abdominal pain or diarrhea. Currently on antibiotics in the form of cefepime and Flagyl. Follow-up right lower extremity calf ulcer wound cultures. Skin graft was peeling off on one side. No purulent discharge noted. Wound dressing is being done. Laboratory data reviewed. Blood pressure is stable. 01/11/2022 Patient is awake alert and oriented. No complaints of chest pain. Denied any right lower extremity pain. No nausea vomiting abdominal diarrhea. Currently being continued on antibiotics in the form of cefepime and Flagyl. ID is on board. Patient is being cardiogram wound care. Laboratory showed WBC 4.6 hemoglobin 9.5 and platelets 275 Sodium 135 potassium 3.8 chloride 102 bicarb is 30 BUN 33 and creatinine 1.07. Calcium 8.1. Cultures not available. Current medications reviewed Objective - Vital Signs Vital signs: Vital Signs Temp 97.7 F 01/11/22 13:17 Pulse 84 01/11/22 13:17 Resp 16 01/11/22 15:37 BP 112/70 01/11/22 13:17 Pulse Ox 96 01/11/22 15:37 FiO2 Intake & Output 01/10/22 01/11/22 01/11/22 18:59 06:59 18:59 Intake Total 240 740 180 Output Total 800 200 Balance 240 -60 -20 Intake: IV 240 240 Sodium Chloride 0.9% 1, 240 240 000 ml @ 20 mls/hr IV . Q24H [facility] Rx#:[id number] Intake, IV Titration 100 Amount Cefepime 2 gm In Sodium 100 Chloride 0.9% 100 ml @ 25 mls/hr IVPB Q12HR [facility] Rx #:[id number] Oral 400 180 Output: Urine 800 200 Other: Voiding Method External Catheter External Catheter External Catheter # Voids 1 # Bowel Movements 1 - Exam PHYSICAL EXAMINATION: Patient is lying in the bed comfortably, no acute distress, awake alert and able to talk but confused and repeating the same question.. HEENT: Normocephalic. Neck is supple. Pupils reactive. Nostrils clear. Oral cavity is moist. Neck reveals no JVD, carotid bruits, or thyromegaly. CHEST EXAMINATION: Trachea is central. Symmetrical expansion. Lung hunt clear to auscultation and percussion. CARDIAC: Normal S1, S2 with no gallops. No murmurs ABDOMEN: Soft. Bowel sounds normal. No organomegaly. No abdominal bruits. Extremities: Right lower extremity wound and skin graft over the calf region noted. No discharge today.. Minimal redness and warm.. No clubbing or cyanosis Neurologically awake, alert, oriented to with well-coordinated movements. No loss focal deficits noted Skin: No rash or skin lesions. Psychiatric: Coperative. Could not be assessed completely Musculoskeletal: No joint swelling or deformity. - Labs CBC & Chem 7: 01/11/22 12:10 01/11/22 12:10 Labs: Abnormal Lab Results - Last 24 Hours (Table) 01/11/22 01/11/22 Range/Units 12:10 12:10 RBC 3.21 L (3.80-5.40) m/uL Hgb 9.5 L (11.4-16.0) gm/dL Hct 31.6 L (34.0-46.0) % MCHC 30.0 L (31.0-37.0) g/dL RDW 16.7 H (11.5-15.5) % Lymphocytes # 0.6 L (1.0-4.8) k/uL Sodium 135 L (137-145) mmol/L BUN 33 H (7-17) mg/dL Creatinine 1.07 H (0.52-1.04) mg/dL Glucose 123 H (74-99) mg/dL Calcium 8.1 L (8.4-10.2) mg/dL Assessment and Plan Assessment: Recent right lower extremity cellulitis and calf wound infection with skin graft and was discharged home on cefepime and metronidazole from [facility]. Fever with chest x-ray findings of possible lung base infiltration/pneumonia. Metabolic and toxic encephalopathy due to infection. Coronary artery disease Chronic CHF. Ejection fraction not known. To moderate arthritis currently on Plaquenil and prednisone 5 mg daily Hypertension Hyperlipidemia DVT prophylaxis with heparin subcu Plan: Patient will be continued on antibiotics the form of cefepime and Flagyl.. Right lower extremity wound cultures were sent. Wound care consult and ID is on board. Continue with Coreg, aspirin and statins. Continue GI and urine prophylaxis and symptomatic management for nausea. Follow closely. Prognosis is guarded time. Time with Patient: Greater than 30
--- NOTE | 2022-01-13 00:58 | P.PN ---
Subjective Progress Note Date: 01/12/22 Patient is a 71-year-old female with a known history of coronary artery disease, hypertension, hyperkalemia, rheumatoid arthritis was sent to Hospital from extended care facility due to altered mental status for the past 2 days. Apparently Patient was recently admitted to [facility] due to right lower extremity cellulitis and wound infection and was discharged to [facility] on cefepime and Flagyl. Patient is a poor historian and confused. Could not provide much history. Denied any complaints of leg pain. No fever no chills. No chest pain or shortness of breath. Denied any headache or dizziness or lightheadedness. Patient was febrile with T-max 101.1 on admission. Chest x-ray showed cardiome deepali with suspected pulmonary edema and questionable posterior lung infiltration in the lateral view. CT head showed no acute intracranial process. Nonspecific white matter changes. Likely secondary to chronic small ischemic disease. EKG showed sinus rhythm with premature atrial complexes. Laboratory data showed WBC 7.9 hemoglobin 10.1 and platelets 365 INR 1.3 Sodium 136 potassium 3.6 chloride 98 bicarb is 32 BUN 29 and creatinine 0.91 and blood sugar is 150 Pro-calcitonin level is 0.0 to Urinalysis showed cloudy with 2+ protein and moderate blood. Small leukocyte esterase. Influenza EA, B, RSV and covid 19 PCR not detected. 01/09/2022 Patient currently resting in the bed. Awake alert and oriented 2. Patient does have confusion and talking incoherently. Patient has been afebrile. Currently being continued on antibiotics in the form of cefepime and Flagyl with the recent infection and skin graft of the right calf region. There are any chest pain or shortness of breath. No cough or sputum production. No headache or dizziness or lightheadedness. 01/10/2022 Patient is currently resting in bed. Mental status is improving. Patient is more awake and alert. No complaints of chest pain or shortness of breath. Patient has been afebrile. No nausea vomiting or abdominal pain or diarrhea. Currently on antibiotics in the form of cefepime and Flagyl. Follow-up right lower extremity calf ulcer wound cultures. Skin graft was peeling off on one side. No purulent discharge noted. Wound dressing is being done. Laboratory data reviewed. Blood pressure is stable. 01/11/2022 Patient is awake alert and oriented. No complaints of chest pain. Denied any right lower extremity pain. No nausea vomiting abdominal diarrhea. Currently being continued on antibiotics in the form of cefepime and Flagyl. ID is on board. Patient is being cardiogram wound care. Laboratory showed WBC 4.6 hemoglobin 9.5 and platelets 275 Sodium 135 potassium 3.8 chloride 102 bicarb is 30 BUN 33 and creatinine 1.07. Calcium 8.1. Cultures not available. 01/13/2020 Patient is resting in the bed. Awake alert and oriented. No complaints of leg pain. On IV antibiotics. ID is on board. Continue with current antibiotics at this time. No nausea vomiting abdominal pain or diarrhea. Tolerating oral diet. Anticipate discharge stational care facility in the next 24 hours with final ID antibiotic recommendations. Current medications reviewed Objective - Vital Signs Vital signs: Vital Signs Temp 97.9 F 01/12/22 20:07 Pulse 61 01/12/22 20:07 Resp 16 01/12/22 20:07 BP 105/58 01/12/22 20:07 Pulse Ox 94 L 01/12/22 20:07 FiO2 Intake & Output 01/12/22 01/12/22 01/13/22 06:59 18:59 06:59 Output Total 1250 Balance -1250 Output: Urine 1250 Stool 0 Other: Voiding Method External Catheter External Catheter # Voids 1 # Bowel Movements 1 - Exam PHYSICAL EXAMINATION: Patient is lying in the bed comfortably, no acute distress, awake alert and able to talk but confused and repeating the same question.. HEENT: Normocephalic. Neck is supple. Pupils reactive. Nostrils clear. Oral cavity is moist. Neck reveals no JVD, carotid bruits, or thyromegaly. CHEST EXAMINATION: Trachea is central. Symmetrical expansion. Lung hunt clear to auscultation and percussion. CARDIAC: Normal S1, S2 with no gallops. No murmurs ABDOMEN: Soft. Bowel sounds normal. No organomegaly. No abdominal bruits. Extremities: Right lower extremity wound and skin graft over the calf region noted. No discharge today.. Minimal redness and warm.. No clubbing or cyanosis Neurologically awake, alert, oriented to with well-coordinated movements. No loss focal deficits noted Skin: No rash or skin lesions. Psychiatric: Coperative. Could not be assessed completely Musculoskeletal: No joint swelling or deformity. - Labs CBC & Chem 7: 01/11/22 12:10 01/11/22 12:10 Assessment and Plan Assessment: Recent right lower extremity cellulitis and calf wound infection with skin graft and was discharged home on cefepime and metronidazole from [facility]. Fever with chest x-ray findings of possible lung base infiltration/pneumonia. Metabolic and toxic encephalopathy due to infection. improved. Coronary artery disease Chronic CHF. Ejection fraction not known. To moderate arthritis currently on Plaquenil and prednisone 5 mg daily Hypertension Hyperlipidemia DVT prophylaxis with heparin subcu Plan: Patient will be continued on antibiotics the form of cefepime and Flagyl.. c/w Wound care consult and ID is on board. Continue with Coreg, aspirin and statins. Continue GI and urine prophylaxis and symptomatic management for nausea. Follow closely. Prognosis is guarded time.
[2022-01-13] MEDS: HEPARIN SODIUM,PORCINE/PF 5,000 UNIT/0.5 ML SYRINGE SQ SCH ×3 (01:44→15:50)
[2022-01-13] MEDS: GABAPENTIN 300 MG CAP PO SCH ×3 (05:26→20:55)
--- NOTE | 2022-01-13 07:32 | P.PN ---
Subjective Progress Note Date: 01/12/22 Principal diagnosis: Fever Patient is a 71-year-old female with multiple comorbidities and custodial resident, with a recent admission at [facility] treated for right lower extremity cellulitis and the patient did have placement to the right posterior leg wound and was treated with IV cefepime and Flagyl presenting to the hospital for no blood pressure and mental status changes. On today's evaluation that is 01/12/2022, the patient denies any fever or any chills, patient denies any chest pain or shortness breath and is currently breathing comfortable on room air. No abdominal pain and no diarrhea was reported by the nursing staff Objective - Vital Signs Vital signs: Vital Signs Temp 97.9 F 01/12/22 14:00 Pulse 87 01/12/22 14:00 Resp 16 01/12/22 14:00 BP 118/60 01/12/22 14:00 Pulse Ox 92 L 01/12/22 14:00 FiO2 Intake & Output 01/11/22 01/12/22 01/12/22 18:59 06:59 18:59 Intake Total 1979 Output Total 200 1250 Balance 1780 -1250 Intake: Oral 1979 Output: Urine 200 1250 Stool 0 Other: Voiding Method External Catheter External Catheter External Catheter # Voids 1 - Exam GENERAL DESCRIPTION: An elderly female lying in bed in no distress RESPIRATORY SYSTEM: Unlabored breathing , decreased breath sounds at bases HEART: S1 S2 regular rate and rhythm , ABDOMEN: Soft , no tenderness EXTREMITIES: Right posterior leg wound with the attached no surrounding redness or any drainage - Labs CBC & Chem 7: 01/11/22 12:10 01/11/22 12:10 Assessment and Plan (1) Pyrexia Current Visit: Yes Status: Acute Code(s): R50.9 - FEVER, UNSPECIFIED SNOMED Code(s): 499168747 Plan: 1patient presented to hospital with mental status changes in this patient who did have a fever and recently treated at the [facility] for right lower extremity wound and cellulitis currently did have a graft to the right posterior leg wound area but no surrounding cellulitis or any foul-smelling drainage, patient abdominal soft on clinical examination urine was mildly positive, chest x-ray with no definite consolidation most interstitial infiltrate however the patient did have elevated pro calcitonin and a possible component of pneumonia as no other obvious focus of infection. 2 dry protective dressing to the right posterior leg graft area and keep the area of the pressure. 3patient had shown clinical improvement and will continue with cefepime and Flagyl, still waiting for records from [facility] to review and determine the course of discharge antibiotics, the patient did have a nonfunctioning PICC line per nursing staff and should be discontinued to decrease risk of line related sepsis Time with Patient: Less than 30
[2022-01-13] MEDS: ONDANSETRON 4 MG/2 ML VIAL IVP PRN (08:01)
[2022-01-13] MEDS: CEFEPIME 2 GM in SODIUM CHLORIDE 0.9% 100 ML IVPB SCH ×2 (08:03→20:55)
[2022-01-13 08:48] LABS: Basophils # (A) 0.04 X 10*3/uL (0.00-0.10); Basophils % (A) 0.5 %; Eosinophils # (A) 0.29 X 10*3/uL (0.04-0.35); Eosinophils % (A) 3.4 %; HCT 31.2 % (37.2-46.3); HGB 9.3 g/dL (12.0-15.0); Immature Grans, Automated 2.4 %; Lymphocytes # (A) 1.44 X 10*3/uL (0.90-5.00); Lymphocytes % (A) 16.9 %; MCH 28.4 pg (27.0-32.0); MCHC 29.8 g/dL (32.0-37.0); MCV 95.1 fL (80.0-97.0); Mean Platelet Volume 9.8 fL (9.5-12.2); Monocytes # (A) 0.52 X 10*3/uL (0.20-1.00); Monocytes % (A) 6.1 %; NRBC Per 100 WBC 0 /100 WBCS (0.0-0.0); Neutrophils # (A) 6.01 X 10*3/uL (1.80-7.70); Neutrophils % (A) 70.7 %; Platelet Count 333 X 10*3/uL (140-440); RBC 3.28 X 10*6/uL (4.10-5.20); RDW 17.1 % (11.5-14.5)
[2022-01-13 09:02] LABS: African American GFR (CKD) 64.7 (60.0-200.0); Anion Gap 8.7 mmol/L (10.00-18.00); BUN/Creat Ratio 23.5 Ratio (12.00-20.00); Blood Urea Nitrogen 23.5 mg/dL (9.0-27.0); Calcium 8.8 mg/dL (8.7-10.3); Carbon Dioxide 28.3 mmol/L (20.0-27.5); Non-African American GFR(CKD) 55.8 (60.0-200.0); Potassium 3.6 mmol/L (3.5-5.5)
[2022-01-13] MEDS: carvediloL 3.125 MG TAB PO SCH (09:17)
[2022-01-13] MEDS: ACETAMINOPHEN TAB 325 MG TAB PO PRN ×2 (09:17→17:37)
[2022-01-13] MEDS: allopurinoL 300 MG TAB PO SCH (09:30)
[2022-01-13] MEDS: ASPIRIN 81 MG PO SCH (09:30)
[2022-01-13] MEDS: metroNIDAZOLE 500 MG TAB PO SCH ×3 (09:30→20:55)
[2022-01-13] MEDS: CHOLECALCIFEROL 125 MCG (5000 IU) TABLET PO SCH (09:30)
[2022-01-13] MEDS: HYDROXYCHLOROQUINE SULFATE 200 MG TAB PO SCH (09:30)
[2022-01-13] MEDS: predniSONE 5 MG TAB PO SCH (09:30)
[2022-01-13] MEDS: CYANOCOBALAMIN 500 MCG TAB PO SCH (09:30)
[2022-01-13] MEDS: SODIUM CHLORIDE 0.9% 1,000 ML IV SCH (17:35)
[2022-01-13] MEDS ORDERED: Magnesium Replacement Protocol 1 EACH MISC MISCELLANE PRN (19:09)
[2022-01-13] MEDS: METOPROLOL TARTRATE 50 MG TAB PO SCH (19:10)
[2022-01-13] MEDS: PANTOPRAZOLE 40 MG TABLET PO SCH (20:55)
[2022-01-13] MEDS: ATORVASTATIN 40 MG TAB PO SCH (20:55)
[2022-01-14] MEDS: HEPARIN SODIUM,PORCINE/PF 5,000 UNIT/0.5 ML SYRINGE SQ SCH ×4 (00:07→23:34)
[2022-01-14] MEDS: ACETAMINOPHEN TAB 325 MG TAB PO PRN ×4 (00:07→23:37)
--- NOTE | 2022-01-14 03:14 | P.PN ---
Subjective Progress Note Date: 01/13/22 Patient is a 71-year-old female with a known history of coronary artery disease, hypertension, hyperkalemia, rheumatoid arthritis was sent to Hospital from extended care facility due to altered mental status for the past 2 days. Apparently Patient was recently admitted to [facility] due to right lower extremity cellulitis and wound infection and was discharged to [facility] on cefepime and Flagyl. Patient is a poor historian and confused. Could not provide much history. Denied any complaints of leg pain. No fever no chills. No chest pain or shortness of breath. Denied any headache or dizziness or lightheadedness. Patient was febrile with T-max 101.1 on admission. Chest x-ray showed cardiom egaly with suspected pulmonary edema and questionable posterior lung infiltration in the lateral view. CT head showed no acute intracranial process. Nonspecific white matter changes. Likely secondary to chronic small ischemic disease. EKG showed sinus rhythm with premature atrial complexes. Laboratory data showed WBC 7.9 hemoglobin 10.1 and platelets 365 INR 1.3 Sodium 136 potassium 3.6 chloride 98 bicarb is 32 BUN 29 and creatinine 0.91 and blood sugar is 150 Pro-calcitonin level is 0.0 to Urinalysis showed cloudy with 2+ protein and moderate blood. Small leukocyte esterase. Influenza EA, B, RSV and covid 19 PCR not detected. 01/09/2022 Patient currently resting in the bed. Awake alert and oriented 2. Patient does have confusion and talking incoherently. Patient has been afebrile. Currently being continued on antibiotics in the form of cefepime and Flagyl with the recent infection and skin graft of the right calf region. There are any chest pain or shortness of breath. No cough or sputum production. No headache or dizziness or lightheadedness. 01/10/2022 Patient is currently resting in bed. Mental status is improving. Patient is more awake and alert. No complaints of chest pain or shortness of breath. Patient has been afebrile. No nausea vomiting or abdominal pain or diarrhea. Currently on antibiotics in the form of cefepime and Flagyl. Follow-up right lower extremity calf ulcer wound cultures. Skin graft was peeling off on one side. No purulent discharge noted. Wound dressing is being done. Laboratory data reviewed. Blood pressure is stable. 01/11/2022 Patient is awake alert and oriented. No complaints of chest pain. Denied any right lower extremity pain. No nausea vomiting abdominal diarrhea. Currently being continued on antibiotics in the form of cefepime and Flagyl. ID is on board. Patient is being cardiogram wound care. Laboratory showed WBC 4.6 hemoglobin 9.5 and platelets 275 Sodium 135 potassium 3.8 chloride 102 bicarb is 30 BUN 33 and creatinine 1.07. Calcium 8.1. Cultures not available. 01/13/2020 Patient is resting in the bed. Awake alert and oriented. No complaints of leg pain. On IV antibiotics. ID is on board. Continue with current antibiotics at this time. No nausea vomiting abdominal pain or diarrhea. Tolerating oral diet. Anticipate discharge [facility] care facility in the next 24 hours with final ID antibiotic recommendations. 01/13/2022 Patient is seen this morning and ID following. Cardiology consulted and recommend to continue with telemetry monitoring. Patient is maintained on oral flagyl and cefepime and awaiting [place] records. Patient has non-functioning PICC, possibly occluded and will discuss with ID about discharge planning. Patient is afebrile and denies any chest pain or shortness of breath. HR elevated for a brief period at 119 and possible arrhythmia noted and cardiology has been consulted. Case management/social work following and plan is ECF return once stable. Review of systems: Constitutional: No reports of fatigue, fever, or chills Cardiovascular: No reports of chest pain or palpitations Respiratory: No reports of shortness of breath or cough GI: No reports of nausea, vomiting, or diarrhea : No reports of dysuria or retention Neurovascular: reports of generalized weakness All medications have been reviewed Active Medications Acetaminophen (Acetaminophen Tab 325 Mg Tab) 650 mg PO Q6HR PRN PRN Reason: Mild Pain or Fever > 100.5 Last Admin: 01/13/22 09:17 Dose: 650 mg Albuterol Sulfate (Albuterol Nebulized 2.5 Mg/3 Ml) 2.5 mg INHALATION RT-Q6H PRN PRN Reason: Shortness Of Breath Last Admin: 01/12/22 12:15 Dose: 2.5 mg Allopurinol (Allopurinol 300 Mg Tab) 300 mg PO DAILY@0800 [facility] Last Admin: 01/13/22 09:30 Dose: 300 mg Aspirin (Aspirin 81 Mg) 81 mg PO DAILY@0800 [facility] Last Admin: 01/13/22 09:30 Dose: 81 mg Atorvastatin Calcium (Atorvastatin 40 Mg Tab) 40 mg PO HS@1999 [facility] Last Admin: 01/12/22 19:08 Dose: 40 mg Carvedilol (Carvedilol 3.125 Mg Tab) 3.125 mg PO BID@799,1999 [facility] Last Admin: 01/13/22 09:17 Dose: 3.125 mg Cholecalciferol (Cholecalciferol 125 Mcg (5000 Iu) Tablet) 250 mcg PO DAILY@0800 [facility] Last Admin: 01/13/22 09:30 Dose: 250 mcg Cyanocobalamin (Cyanocobalamin 500 Mcg Tab) 1,000 mcg PO DAILY@0800 [facility] Last Admin: 01/13/22 09:30 Dose: 1,000 mcg Docusate Sodium (Docusate 100 Mg Cap) 100 mg PO BID PRN PRN Reason: Constipation Last Admin: 01/12/22 10:27 Dose: 100 mg Gabapentin (Gabapentin 300 Mg Cap) 600 mg PO TID@0600,1400,2200 [facility] Last Admin: 01/13/22 14:29 Dose: 600 mg Heparin Sodium (Porcine) (Heparin Sodium,Porcine/Pf 5,000 Unit/0.5 Ml Syringe) 5,000 unit SQ Q8HR [facility] Last Admin: 01/13/22 09:31 Dose: 5,000 unit Hydroxychloroquine Sulfate (Hydroxychloroquine Sulfate 200 Mg Tab) 200 mg PO DAILY@0900 [facility] Last Admin: 01/13/22 09:30 Dose: 200 mg Sodium Chloride (Saline 0.9%) 1,000 mls @ 20 mls/hr IV .Q24H [facility] Last Admin: 01/12/22 17:15 Dose: 20 mls/hr Cefepime HCl 2 gm/ Sodium (Chloride) 100 mls @ 25 mls/hr IVPB Q12HR [facility]; Pro tocol Last Admin: 01/13/22 08:03 Dose: 25 mls/hr Metronidazole (Metronidazole 500 Mg Tab) 500 mg PO TID [facility]; Protocol Last Admin: 01/13/22 09:30 Dose: 500 mg Naloxone HCl (Naloxone 0.4 Mg/Ml 1 Ml Vial) 0.2 mg IV Q2M PRN PRN Reason: Opioid Reversal Ondansetron HCl (Ondansetron 4 Mg/2 Ml Vial) 4 mg IVP Q8HR PRN PRN Reason: Nausea And Vomiting Last Admin: 01/13/22 08:01 Dose: 4 mg Ondansetron HCl (Ondansetron 4 Mg/2 Ml Vial) 4 mg IVP Q6HR PRN PRN Reason: Nausea And Vomiting Pantoprazole Sodium (Pantoprazole 40 Mg Tablet) 40 mg PO HS@2000 [facility] Last Admin: 01/12/22 19:08 Dose: 40 mg Prednisone (Prednisone 5 Mg Tab) 5 mg PO DAILY@0800 [facility] Last Admin: 01/13/22 09:30 Dose: 5 mg Physical exam: Patient is lying in the bed , asleep but arousable, alert x1-2. HEENT: Normocephalic. Neck is supple. Pupils reactive. Nostrils clear. Oral cavity is moist. Neck reveals no JVD, carotid bruits, or thyromegaly. CHEST EXAMINATION: Trachea is central. Symmetrical expansion. diminished breath sounds bilaterally with no wheezing or rhonchi noted CARDIAC: Normal S1, S2 muffled ABDOMEN: Soft. Bowel sounds normal. No organomegaly. No abdominal bruits. Extremities: Right lower extremity wound and skin graft over the calf region noted. No discharge drainage noted today.. Minimal redness and warmth.. No clubbing or cyanosis Neurologically awake, alert, oriented to self. Diffuse weakness noted. No loss focal deficits noted Skin: No rash or skin lesions. Psychiatric: Cooperative. lethargic Musculoskeletal: No joint swelling or deformity. Assessment: Recent right lower extremity cellulitis and calf wound infection with skin graft and was discharged home on cefepime and metronidazole from [facility]. Fever with chest x-ray findings of possible lung base infiltration/pneumonia. Metabolic and toxic encephalopathy due to infection. improved. Coronary artery disease Chronic CHF. Ejection fraction not known. Moderate arthritis currently on Plaquenil and prednisone 5 mg daily Hypertension Hyperlipidemia DVT prophylaxis with heparin subcu Full code Plan: Patient will be continued on antibiotics the form of cefepime and Flagyl.. Wound care and ID following. Patient has a non-functioning PICC line and will discuss with ID about discharge planning and antibiotic therapy. Awaiting [place] records as there are no cultures available here. Recommend to continue with telemetry monitoring and will consult cardiology. ECG Recommend to continue with current medications. Recommend follow up labs in am Due to multiple complex medical issues, Prognosis is guarded time. Plan is to return to ECF on discharge once stable. The impression and plan of care has been dictated by Jocelynn Nascimento, Nurse Practitioner as directed. Dr. Troy MD I have performed a history and examination and MDM of this patient, discussed the same with the dictator, and agree with the dictator's assessment and plan as written ,documented as a scribe. Based on total visit time, I have performed more than 50% of the visit. Objective - Vital Signs Vital signs: Vital Signs Temp 97.4 F L 01/13/22 14:00 Pulse 120 H 01/13/22 14:00 Resp 18 01/13/22 14:00 BP 123/61 01/13/22 14:00 Pulse Ox 95 01/13/22 14:00 FiO2 Intake & Output 01/12/22 01/13/22 01/13/22 18:59 06:59 18:59 Output Total 1200 Balance -1200 Output: Urine 1200 Other: Voiding Method External Catheter External Catheter # Bowel Movements 1 2 - Labs CBC & Chem 7: 01/13/22 06:02 01/13/22 06:02 Labs: Abnormal Lab Results - Last 24 Hours (Table) 01/13/22 01/13/22 Range/Units 06:02 06:02 RBC 3.28 L (4.10-5.20) X 10*6/uL Hgb 9.3 L (12.0-15.0) g/dL Hct 31.2 L (37.2-46.3) % MCHC 29.8 L (32.0-37.0) g/dL RDW 17.1 H (11.5-14.5) % Immature Gran # 0.20 H (0.00-0.04) X 10*3/uL Carbon Dioxide 28.3 H (20.0-27.5) mmol/L Anion Gap 8.70 L (10.00-18.00) mmol/L Est GFR (CKD-EPI)NonAf 55.8 L (60.0-200.0) BUN/Creatinine Ratio 23.50 H (12.00-20.00) Ratio
[2022-01-14] MEDS: GABAPENTIN 300 MG CAP PO SCH ×3 (05:35→19:59)
[2022-01-14 06:51] LABS: African American GFR (CKD) 76 (>60 ml/min/1.73 sqM); Anion Gap 5 mmol/L; Blood Urea Nitrogen 24 mg/dL (7-17); Calcium 8.5 mg/dL (8.4-10.2); Carbon Dioxide 27 mmol/L (22-30); Chloride 106 mmol/L (98-107); Glucose 97 mg/dL (74-99); Magnesium 1.6 mg/dL (1.6-2.3); Non-African American GFR(CKD) 66 (>60 ml/min/1.73 sqM); Potassium 3.4 mmol/L (3.5-5.1); Sodium 138 mmol/L (137-145)
[2022-01-14] MEDS ORDERED: Potassium Replacement Protocol 1 EACH MISC MISCELLANE PRN ×2 (07:16→09:29)
--- NOTE | 2022-01-14 08:07 | P.PN ---
Subjective Progress Note Date: 01/13/22 Principal diagnosis: Fever Patient is a 71-year-old female with multiple comorbidities and fpc resident, with a recent admission at [facility] treated for right lower extremity cellulitis and the patient did have placement to the right posterior leg wound and was treated with IV cefepime and Flagyl presenting to the hospital for no blood pressure and mental status changes. On today's evaluation that is 01/13/2022, the patient remains to be afebrile, patient denies any chest pain and is currently breathing comfortable on room air. The patient denies abdominal pain and no diarrhea was reported by the nursing staff Objective - Vital Signs Vital signs: Vital Signs Temp 97.9 F 01/13/22 07:20 Pulse 119 H 01/13/22 07:20 Resp 17 01/13/22 07:20 BP 138/83 01/13/22 07:20 Pulse Ox 94 L 01/13/22 08:01 FiO2 Intake & Output 01/12/22 01/13/22 01/13/22 18:59 06:59 18:59 Output Total 1200 Balance -1200 Output: Urine 1200 Other: Voiding Method External Catheter External Catheter # Bowel Movements 1 2 - Exam GENERAL DESCRIPTION: An elderly female lying in bed in no distress RESPIRATORY SYSTEM: Unlabored breathing , decreased breath sounds at bases HEART: S1 S2 regular rate and rhythm , ABDOMEN: Soft , no tenderness EXTREMITIES: Right posterior leg wound with the attached no surrounding redness or any drainage - Labs CBC & Chem 7: 01/13/22 06:02 01/14/22 05:45 Labs: Abnormal Lab Results - Last 24 Hours (Table) 01/13/22 01/13/22 Range/Units 06:02 06:02 RBC 3.28 L (4.10-5.20) X 10*6/uL Hgb 9.3 L (12.0-15.0) g/dL Hct 31.2 L (37.2-46.3) % MCHC 29.8 L (32.0-37.0) g/dL RDW 17.1 H (11.5-14.5) % Immature Gran # 0.20 H (0.00-0.04) X 10*3/uL Carbon Dioxide 28.3 H (20.0-27.5) mmol/L Anion Gap 8.70 L (10.00-18.00) mmol/L Est GFR (CKD-EPI)NonAf 55.8 L (60.0-200.0) BUN/Creatinine Ratio 23.50 H (12.00-20.00) Ratio Assessment and Plan (1) Pyrexia Current Visit: Yes Status: Acute Code(s): R50.9 - FEVER, UNSPECIFIED SNOMED Code(s): 610782213 Plan: 1patient presented to hospital with mental status changes in this patient who did have a fever and recently treated at the [facility] for right lower extremity wound and cellulitis currently did have a graft to the right posterior leg wound area but no surrounding cellulitis or any foul-smelling drainage, patient abdominal soft on clinical examination urine was mildly positive, chest x-ray with no definite consolidation most interstitial infiltrate however the patient did have elevated pro calcitonin and a possible component of pneumonia as no other obvious focus of infection. 2 dry protective dressing to the right posterior leg graft area and keep the area of the pressure. 3patient had shown clinical improvement and will continue with cefepime and Flagyl, we are still waiting for records from [facility] to review and determine the course of discharge antibiotics, the patient did have a nonf unctioning PICC line per nursing staff and was advised to be removed yesterday however is still intact and the nursing staff is aware to remove it Time with Patient: Less than 30
[2022-01-14] MEDS: CEFEPIME 2 GM in SODIUM CHLORIDE 0.9% 100 ML IVPB SCH ×2 (08:16→19:54)
[2022-01-14] MEDS ORDERED: Magnesium Replacement Protocol 1 EACH MISC MISCELLANE PRN (09:29)
--- NOTE | 2022-01-14 10:49 | P.CRDCN ---
History of Present Illness History of present illness: HISTORY OF PRESENTING ILLNESS This is a pleasant 71-year-old female past medical history significant for coronary artery disease (unknown details), congestive heart failure (unknown details), hypertension, hyperlipidemia, rheumatoid arthritis, recent admission to [facility] for cellulitis. 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 We have been asked to see in consultation for arrhythmia. Patient initially presented to the hospital on 01/07/2022 from an extended care facility to altered mental status, fever. Patient was recently admitted to [facility] due to right lower extremity cellulitis and wound infection. She was discharged to [facility] on cefepime and Flagyl via PICC line. Infectious disease is following the patient. Patient denies any chest pain, shortness of breath, lightheadedness, dizziness, syncope or near syncope. DIAGNOSTICS EKG reveals sinus rhythm, frequent PVCs, heart rate 97, LVH, poor R-wave progression, no prior EKG to compare. Telemetry tracings indicate sinus mechanism with frequent PVCs Chest xray cardiomegaly, questionable posterior lung base infiltrate in the lateral view. Increased cardiac size, associated pericardial effusion cannot be excluded. Brain CT with no acute intracranial process. Laboratory reviewed, sodium 138, potassium 3.4, BUN 24, serum crit 0.8, magnesium 1.6, WBC 8.5, hemoglobin 9.3, platelets 333, TSH within normal limits Current home cardiac medications include Entresto 24-26mg BID, spironolactone 25 mg daily, carvedilol 3.125 mg twice a day, Lasix 40 mg daily, atorvastatin 40 mg nightly, aspirin 81 mg daily REVIEW OF SYSTEMS At the time of my exam: CONSTITUTIONAL: Denies fever or chills. CARDIOVASCULAR: Denies chest pain, shortness of breath, orthopnea, PND or palpitations. RESPIRATORY: Denies cough. GASTROINTESTINAL: Denies abdominal pain, diarrhea, constipation, nausea or vomiting. MUSCULOSKELETAL: Denies myalgias. NEUROLOGIC: Denies numbness, tingling, headacbe or weakness. ENDOCRINE: Denies fatigue, weight change, polydipsia or polyurina. GENITOURINARY: Denies burning, hematuria or urgency with micturation. HEMATOLOGIC: Denies history of anemia or bleeding. PHYSICAL EXAMINATION Blood pressure 111/67, heart rate 93, afebrile, saturations 90% room air CONSTITUTIONAL: No apparent distress. HEENT: Head is normocephalic. Pupils are equal, round. Sclerae anicteric. Mucous membranes of the mouth are moist. No JVD. No carotid bruit. CHEST EXAMINATION: Lungs are clear to auscultation. No chest wall tenderness is noted on palpation or with deep breathing. HEART EXAMINATION: Regular rate and rhythm. S1, S2 heard. Systolic murmur noted. No gallops or rubs ABDOMEN: Soft, nontender. Positive bowel sounds. EXTREMITIES: 2+ peripheral pulses, no lower extremity edema and no calf tenderness. NEUROLOGIC EXAMINATION: Patient is awake, alert and oriented x2 ASSESSMENT Premature ventricular complexes Altered mental status Fever Hypokalemia Anemia Cellulitis of right lower extremity, recently treated at [facility] TSH within normal limits Continue beta misael Obtain 2D echocardiogram and doppler study to assess cardiac structure and function. Monitor electrolytes Rest of management per primary Nurse practitioner note has been reviewed by physician. Signing provider agrees with the documented findings, assessment, and plan of care. Past Medical History Past Medical History: Coronary Artery Disease (CAD), Heart Failure, GERD/Reflux, Hyperlipidemia, Hypertension, Rheumatoid Arthritis (RA) Additional Past Medical History / Comment(s): cellulitis, anemia History of Any Multi-Drug Resistant Organisms: None Reported Past Surgical History: No Surgical Hx Reported Past Anesthesia/Blood Transfusion Reactions: Unable to Obtain Past Psychological History: No Psychological Hx Reported Smoking Status: Unknown if ever smoked Past Alcohol Use History: None Reported Past Drug Use History: None Reported Medications and Allergies Home Medications Medication Instructions Recorded Confirmed Type Albuterol Nebulized [Ventolin 2.5 mg INHALATION RT-Q6H PRN 01/07/22 01/07/22 History Nebulized] Aspirin EC [Ecotrin Low Dose] 81 mg PO DAILY@0800 01/07/22 01/07/22 History Atorvastatin [Lipitor] 40 mg PO HS@199901/07/22 01/07/22 History Baclofen [Lioresal] 10 mg PO TID@0600,1400,2200 01/07/22 01/07/22 History Cefepime [Maxipime] 2 gm IVP TID@0000,0800,1600 01/07/22 01/07/22 History Cholecalciferol (Vitamin D3) 250 mcg PO DAILY@0800 01/07/22 01/07/22 History [Vitamin D3 (125 MCG = 5,000 IU)] Cyanocobalamin [Vitamin B-12] 1,000 mcg PO DAILY@0801/07/22 01/07/22 History Diclofenac Sodium Gel [Voltaren 1 applic TOPICAL QID@00,,,01/07/22 01/07/22 History Gel] Docusate [Colace] 100 mg PO BID@08,199901/07/22 01/07/22 History Ferrous Sulfate [Feosol] 325 mg PO DAILY@79901/07/22 01/07/22 History Furosemide [Lasix] 20 mg PO DIRECTED 01/07/22 01/07/22 History Furosemide [Lasix] 40 mg PO DAILY@79901/07/22 01/07/22 History Gabapentin [Neurontin] 600 mg PO TID@0600,1400,2200 01/07/22 01/07/22 History HYDROcodone/APAP 10-325MG [Wellborn 1 tab PO Q8H PRN 01/07/22 01/07/22 History 10-325] Hydrocerin Cream 1 applic TOPICAL BID@08,199901/07/22 01/07/22 History Hydroxychloroquine Sulfate 200 mg PO DAILY@0901/07/22 01/07/22 History [Plaquenil] Loratadine 10 mg PO DAILY@79901/07/22 01/07/22 History Magnesium Chloride-Calcium 64-106 1 tab PO DAILY@79901/07/22 01/07/22 History Mg Omeprazole 20 mg PO HS@199901/07/22 01/07/22 History Sacubitril/Valsartan [Entresto 24 1 tab PO BID@08,199901/07/22 01/07/22 History mg-26 mg Tablet] Spironolactone [Aldactone] 25 mg PO DAILY@0800 PRN 01/07/22 01/07/22 History allopurinoL 300 mg PO DAILY@79901/07/22 01/07/22 History carvediloL [Coreg] 3.125 mg PO BID@0800,199901/07/22 01/07/22 History guaiFENesin-DM 100-10MG/5ML 5 ml PO Q4H PRN 01/07/22 01/07/22 History [Robitussin DM] metroNIDAZOLE [Flagyl] 500 mg PO DIRECTED 01/07/22 01/07/22 History metroNIDAZOLE [Flagyl] 500 mg PO TID@0600,1400,2200 01/07/22 01/07/22 History polyethylene glycoL 3350 [Miralax] 17 gm PO DAILY@0800 01/07/22 01/07/22 History predniSONE 5 mg PO DAILY@0800 01/07/22 01/07/22 History Allergies Allergy/AdvReac Type Severity Reaction Status Date / Time Iodinated Contrast Media Allergy Unknown Verified 01/07/22 15:46 methotrexate Allergy Unknown Verified 01/07/22 15:46 Penicillins Allergy Unknown Verified 01/07/22 15:46 shellfish derived [Shellfish] Allergy Unknown Verified 01/07/22 15:46 Sulfa (Sulfonamide Allergy Unknown Verified 01/07/22 15:46 Antibiotics) theophylline Allergy Unknown Verified 01/07/22 15:46 Physical Exam Vitals: Vital Signs Temp Pulse Pulse Resp BP Pulse Ox 01/14/22 07:41 98.1 F 50 L 93 16 111/67 01/14/22 01:10 98.6 F 74 14 101/65 92 L 01/13/22 20:00 16 01/13/22 19:35 97.6 F 85 16 107/66 92 L 01/13/22 15:41 91 01/13/22 14:00 97.4 F L 120 H 18 123/61 95 Intake and Output 01/13/22 01/14/22 01/14/22 22:59 06:59 14:59 Output Total 800 550 Balance -800 -550 Output: Urine 800 550 Stool 0 Other: Voiding Method External Catheter External Catheter # Bowel Movements 1 1 Results 01/13/22 06:02 01/14/22 05:45 Comprehensive Metabolic Panel 01/14/22 Range/Units 05:45 Sodium 138 (137-145) mmol/L Potassium 3.4 L (3.5-5.1) mmol/L Chloride 106 (98-107) mmol/L Carbon Dioxide 27 (22-30) mmol/L BUN 24 H (7-17) mg/dL Creatinine 0.88 (0.52-1.04) mg/dL Glucose 97 (74-99) mg/dL Calcium 8.5 (8.4-10.2) mg/dL Current Medications Generic Name Dose Route Start Last Admin Trade Name Freq PRN Reason Stop Dose Admin Acetaminophen 650 mg 01/07/22 17:58 01/14/22 08:16 Acetaminophen Tab 325 Mg Tab PO 650 mg Q6HR PRN Administration Mild Pain or Fever > 100.5 Albuterol Sulfate 2.5 mg 01/08/22 10:32 01/12/22 12:15 Albuterol Nebulized 2.5 Mg/3 Ml INHALATION 2.5 mg RT-Q6H PRN Administration Shortness Of Breath Allopurinol 300 mg 01/09/22 08:00 01/13/22 09:30 Allopurinol 300 Mg Tab PO 300 mg DAILY@0800 [facility] Administration Aspirin 81 mg 01/09/22 08:00 01/13/22 09:30 Aspirin 81 Mg PO 81 mg DAILY@0800 [facility] Administration Atorvastatin Calcium 40 mg 01/08/22 20:00 01/13/22 20:55 Atorvastatin 40 Mg Tab PO 40 mg HS@2000 [facility] Administration Cholecalciferol 250 mcg 01/09/22 08:00 01/13/22 09:30 Cholecalciferol 125 Mcg (5000 Iu) Tablet PO 250 mcg DAILY@0800 [facility] Administration Cyanocobalamin 1,000 mcg 01/09/22 08:00 01/13/22 09:30 Cyanocobalamin 500 Mcg Tab PO 1,000 mcg DAILY@0800 [facility] Administration Docusate Sodium 100 mg 01/12/22 08:36 01/12/22 10:27 Docusate 100 Mg Cap PO 100 mg BID PRN Administration Constipation Gabapentin 600 mg 01/08/22 14:00 01/14/22 05:35 Gabapentin 300 Mg Cap PO 600 mg TID@0600,1400,2200 [facility] Administration Heparin Sodium (Porcine) 5,000 unit 01/08/22 16:00 01/14/22 00:07 Heparin Sodium,Porcine/Pf 5,000 Unit/0.5 Ml Syringe SQ 5,000 unit Q8HR [facility] Administration Hydroxychloroquine Sulfate 200 mg 01/09/22 09:00 01/13/22 09:30 Hydroxychloroquine Sulfate 200 Mg Tab PO 200 mg DAILY@0900 [facility] Administration Sodium Chloride 1,000 mls @ 20 mls/hr 01/07/22 18:00 01/13/22 17:35 Saline 0.9% IV 20 mls/hr .Q24H [facility] Administration Cefepime HCl 2 gm/ Sodium 100 mls @ 25 mls/hr 01/09/22 21:00 01/14/22 08:16 Chloride IVPB 25 mls/hr Q12HR [facility] Administration Protocol Magnesium Sulfate/Dextrose 1 100 mls @ 100 mls/hr 01/14/22 09:30 gm/ IV Solution IVPB 01/14/22 11:29 Q1H [facility] Metoprolol Tartrate 50 mg 01/13/22 18:00 01/13/22 19:10 Metoprolol Tartrate 50 Mg Tab PO 50 mg BID [facility] Administration Metronidazole 500 mg 01/08/22 22:30 01/13/22 20:55 Metronidazole 500 Mg Tab PO 500 mg TID [facility] Administration Protocol Miscellaneous Information 1 each 01/13/22 19:09 Magnesium Replacement Protocol 1 Each Misc MISCELLANE DAILY PRN Per Protocol Protocol Miscellaneous Information 1 each 01/14/22 07:16 Potassium Replacement Protocol 1 Each Misc MISCELLANE DAILY PRN Per Protocol Protocol Miscellaneous Information 1 each 01/14/22 09:29 Magnesium Replacement Protocol 1 Each Misc MISCELLANE DAILY PRN Per Protocol Protocol Miscellaneous Information 1 each 01/14/22 09:29 Potassium Replacement Protocol 1 Each Misc MISCELLANE DAILY PRN Per Protocol Protocol Naloxone HCl 0.2 mg 01/07/22 17:58 Naloxone 0.4 Mg/Ml 1 Ml Vial IV Q2M PRN Opioid Reversal Ondansetron HCl 4 mg 01/08/22 13:42 Ondansetron 4 Mg/2 Ml Vial IVP Q6HR PRN Nausea And Vomiting Pantoprazole Sodium 40 mg 01/08/22 20:00 01/13/22 20:55 Pantoprazole 40 Mg Tablet PO 40 mg HS@2000 [facility] Administration Potassium Chloride 20 meq 01/14/22 10:00 Potassium Chloride Er 20 Meq Tab.Er PO 01/14/22 11:01 Q1HR [facility] Protocol Prednisone 5 mg 01/09/22 08:00 01/13/22 09:30 Prednisone 5 Mg Tab PO 5 mg DAILY@0800 [facility] Administration Intake and Output 01/13/22 01/14/22 01/14/22 22:59 06:59 14:59 Output Total 800 550 Balance -800 -550 Output: Urine 800 550 Stool 0 Other: Voiding Method External Catheter External Catheter # Bowel Movements 1 1 01/13/22 06:02 01/14/22 05:45
[2022-01-14] MEDS: ONDANSETRON 4 MG/2 ML VIAL IVP PRN (11:00)
[2022-01-14] MEDS: HYDROXYCHLOROQUINE SULFATE 200 MG TAB PO SCH (11:06)
[2022-01-14] MEDS: ASPIRIN 81 MG PO SCH (11:06)
[2022-01-14] MEDS: predniSONE 5 MG TAB PO SCH (11:06)
[2022-01-14] MEDS: CHOLECALCIFEROL 125 MCG (5000 IU) TABLET PO SCH (11:06)
[2022-01-14] MEDS: allopurinoL 300 MG TAB PO SCH (11:06)
[2022-01-14] MEDS: METOPROLOL TARTRATE 50 MG TAB PO SCH ×2 (11:07→20:00)
[2022-01-14] MEDS: POTASSIUM CHLORIDE ER 20 MEQ TAB.ER PO SCH ×3 (11:07→13:12)
[2022-01-14] MEDS: metroNIDAZOLE 500 MG TAB PO SCH ×3 (11:07→20:00)
[2022-01-14] MEDS: MAGNESIUM SULFATE-D5W PMX 1 GM in DEXTROSE/WATER 1 100ML.BAG IVPB SCH ×2 (13:16→14:24)
[2022-01-14] MEDS: guaiFENesin SYRUP 100MG/5ML 200 MG/10 ML CUP PO PRN (13:16)
--- NOTE | 2022-01-14 15:10 | CA ---
Transthoracic Echo Report Name: Delores Stark Age: 71 Gender: F : 1950 Exam Date: 01/14/2022 11:34 Exam Location: [facility] Ht (in): 64 Wt (lb): 260 Ordering Physician: Glenna Camarillo Attending/Referring Phys: Alignment Mechanic Darlyn Vallejo, RONAK Procedure CPT: Indications: LV function, PVCs. Cardiac Hx: Morbid Obesity Technical Quality: Technically difficult study Contrast 1: Lumason Total Dose (mL): 3 Contrast 2: Total Dose (mL): MEASUREMENTS (Male / Female) Normal Values 2D ECHO LV Diastolic Diameter PLAX 4.0 cm 4.2 - 5.9 / 3.9 - 5.3 cm LV Systolic Diameter PLAX 3.4 cm IVS Diastolic Thickness 1.5 cm 0.6 - 1.0 / 0.6 - 0.9 cm LVPW Diastolic Thickness 1.3 cm 0.6 - 1.0 / 0.6 - 0.9 cm LV Relative Wall Thickness 0.7 RV Internal Dim ED PLAX 3.7 cm M-MODE Aortic Root Diameter MM 3.2 cm FINDINGS Left Ventricle Moderately increased septal wall thickness. Moderately increased posterior wall thickness. Left ventricular ejection fraction is estimated at 50-55 %. Right Ventricle Normal right ventricular size and function. Right Atrium Left Atrium Left atrium not well visualized. Mitral Valve Mitral valve not well visualized. Aortic Valve Aortic valve not well visualized. Tricuspid Valve Tricuspid valve not well visualized. Pulmonic Valve Pulmonic valve not well visualized. Pericardium Echo free space anterior to the right ventricle likely represents a fat pad. Aorta Aortic root and proximal ascending aorta not well visualized. CONCLUSIONS LVH with preserved systolic function Previewed by: Dr. Naman Mcknight MD (Electronically Signed) Final Date: 14 January 2022 15:09
[2022-01-14] MEDS: SODIUM CHLORIDE 0.9% 1,000 ML IV SCH (17:22)
[2022-01-14] MEDS: PANTOPRAZOLE 40 MG TABLET PO SCH (19:59)
[2022-01-14] MEDS: ATORVASTATIN 40 MG TAB PO SCH (20:00)
[2022-01-14] MEDS: ALBUTEROL NEBULIZED 2.5 MG/3 ML INHALATION PRN (21:22)
[2022-01-15] MEDS: GABAPENTIN 300 MG CAP PO SCH ×3 (05:19→22:41)
[2022-01-15] MEDS: guaiFENesin SYRUP 100MG/5ML 200 MG/10 ML CUP PO PRN (05:19)
--- NOTE | 2022-01-15 07:05 | P.PN ---
Subjective Progress Note Date: 01/14/22 Principal diagnosis: Fever Patient is a 71-year-old female with multiple comorbidities and [place] [facility] resident, with a recent admission at [facility] treated for right lower extremity cellulitis and the patient did have placement to the right posterior leg wound and was treated with IV cefepime and Flagyl presenting to the hospital for no blood pressure and mental status changes. On today's evaluation that is 01/14/2022, the patient continues to be afebrile, patient is breathing comfortably on room air, denies any chest pain . The patient denies abdominal pain and no diarrhea was reported by the nursing staff Objective - Vital Signs Vital signs: Vital Signs Temp 98.1 F 01/14/22 07:41 Pulse 93 01/14/22 07:41 Resp 16 01/14/22 07:41 BP 111/67 01/14/22 07:41 Pulse Ox 92 L 01/14/22 01:10 FiO2 Intake & Output 01/13/22 01/14/22 01/14/22 18:59 06:59 18:59 Output Total 800 550 Balance -800 -550 Output: Urine 800 550 Stool 0 Other: Voiding Method External Catheter External Catheter # Bowel Movements 1 1 - Exam GENERAL DESCRIPTION: An elderly female lying in bed in no distress RESPIRATORY SYSTEM: Unlabored breathing , decreased breath sounds at bases HEART: S1 S2 regular rate and rhythm , ABDOMEN: Soft , no tenderness EXTREMITIES: Right posterior leg wound with the attached graft, dressing change by the nurses to mention graft looks good - Labs CBC & Chem 7: 01/13/22 06:02 01/14/22 05:45 Labs: Abnormal Lab Results - Last 24 Hours (Table) 01/14/22 Range/Units 05:45 Potassium 3.4 L (3.5-5.1) mmol/L BUN 24 H (7-17) mg/dL Assessment and Plan (1) Pyrexia Current Visit: Yes Status: Acute Code(s): R50.9 - FEVER, UNSPECIFIED SNOMED Code(s): 187442311 Plan: 1patient presented to hospital with mental status changes in this patient who did have a fever and recently treated at the [facility] for right lower extremity wound and cellulitis currently did have a graft to the right posterior leg wound area but no surrounding cellulitis or any foul-smelling drainage, patient abdominal soft on clinical examination urine was mildly positive, chest x-ray with no definite consolidation most interstitial infiltrate however the patient did have elevated pro calcitonin and a possible component of pneumonia as no other obvious focus of infection. 2 dry protective dressing to the right posterior leg graft area and keep the area of the pressure. 3patient had shown clinical improvement and will continue with cefepime and Flagyl, and counseling the Nehemias's were reviewed and the patient was getting cefepime and Flagyl for the right lower extremity wound infection debridement done by podiatry CT did not show any necrotizing infection end date of cefepime and Flagyl and 01/17/2022 Time with Patient: Less than 30
[2022-01-15 07:50] LABS: Anisocytosis Slight; Basophils # (A) 0.1 k/uL (0-0.2); Basophils % (A) 1 %; Eosinophils # (A) 0.2 k/uL (0-0.7); Eosinophils % (A) 2 %; HGB 9.1 gm/dL (11.4-16.0); Hypochromasia Marked; Lymphocytes # (A) 1.2 k/uL (1.0-4.8); Lymphocytes % (A) 15 %; MCH 29.2 pg (25.0-35.0); MCHC 29.4 g/dL (31.0-37.0); MCV 99.3 fL (80.0-100.0); Macrocytosis Slight; Mean Platelet Volume 8.1; Monocytes # (A) 0.4 k/uL (0-1.0); Monocytes % (A) 4 %; Neutrophils # (A) 6.4 k/uL (1.3-7.7); Neutrophils % (A) 77 %; Platelet Count 326 k/uL (150-450); RBC 3.12 m/uL (3.80-5.40); RDW 17.2 % (11.5-15.5); WBC 8.3 k/uL (3.8-10.6)
--- NOTE | 2022-01-15 09:27 | P.PN ---
Subjective Progress Note Date: 01/15/22 Patient is a 71-year-old female with a known history of coronary artery disease, hypertension, hyperkalemia, rheumatoid arthritis was sent to Hospital from extended care facility due to altered mental status for the past 2 days. Apparently Patient was recently admitted to [facility] due to right lower extremity cellulitis and wound infection and was discharged to [facility] on cefepime and Flagyl. Patient is a poor historian and confused. Could not provide much history. Denied any complaints of leg pain. No fever no chills. No chest pain or shortness of breath. Denied any headache or dizziness or lightheadedness. Patient was febrile with T-max 101.1 on admission. Chest x-ray showed cardiom egaly with suspected pulmonary edema and questionable posterior lung infiltration in the lateral view. CT head showed no acute intracranial process. Nonspecific white matter changes. Likely secondary to chronic small ischemic disease. EKG showed sinus rhythm with premature atrial complexes. Laboratory data showed WBC 7.9 hemoglobin 10.1 and platelets 365 INR 1.3 Sodium 136 potassium 3.6 chloride 98 bicarb is 32 BUN 29 and creatinine 0.91 and blood sugar is 150 Pro-calcitonin level is 0.0 to Urinalysis showed cloudy with 2+ protein and moderate blood. Small leukocyte esterase. Influenza EA, B, RSV and covid 19 PCR not detected. 01/09/2022 Patient currently resting in the bed. Awake alert and oriented 2. Patient does have confusion and talking incoherently. Patient has been afebrile. Currently being continued on antibiotics in the form of cefepime and Flagyl with the recent infection and skin graft of the right calf region. There are any chest pain or shortness of breath. No cough or sputum production. No headache or dizziness or lightheadedness. 01/10/2022 Patient is currently resting in bed. Mental status is improving. Patient is more awake and alert. No complaints of chest pain or shortness of breath. Patient has been afebrile. No nausea vomiting or abdominal pain or diarrhea. Currently on antibiotics in the form of cefepime and Flagyl. Follow-up right lower extremity calf ulcer wound cultures. Skin graft was peeling off on one side. No purulent discharge noted. Wound dressing is being done. Laboratory data reviewed. Blood pressure is stable. 01/11/2022 Patient is awake alert and oriented. No complaints of chest pain. Denied any right lower extremity pain. No nausea vomiting abdominal diarrhea. Currently being continued on antibiotics in the form of cefepime and Flagyl. ID is on board. Patient is being cardiogram wound care. Laboratory showed WBC 4.6 hemoglobin 9.5 and platelets 275 Sodium 135 potassium 3.8 chloride 102 bicarb is 30 BUN 33 and creatinine 1.07. Calcium 8.1. Cultures not available. 01/13/2020 Patient is resting in the bed. Awake alert and oriented. No complaints of leg pain. On IV antibiotics. ID is on board. Continue with current antibiotics at this time. No nausea vomiting abdominal pain or diarrhea. Tolerating oral diet. Anticipate [facility] care facility in the next 24 hours with final ID antibiotic recommendations. 01/13/2022 Patient is seen this morning and ID following. Cardiology consulted and recommend to continue with telemetry monitoring. Patient is maintained on oral flagyl and cefepime and awaiting [facility] records. Patient has non-functioning PICC, possibly occluded and will discuss with ID about discharge planning. Patient is afebrile and denies any chest pain or shortness of breath. HR elevated for a brief period at 119 and possible arrhythmia noted and cardiology has been consulted. Case management/social work following and plan is ECF return once stable. 01/14/2022 Patient is seen in follow-up this morning and continues on IV cefepime along with oral Flagyl and infectious disease following. Patient is status post debridement at [facility] and awaiting medical records. It was documented the infection with Pseudomonas and was to continue with IV antibiotics until 01/17/2022. Patient did have a PICC line that has been occluded and is scheduled to be removed by nursing staff. Will discuss further with infectious disease, but currently continuing with current treatment and finishing antibiotics 01/17/2022. Patient is afebrile and denies chest pain or shortness of breath. Patient is reporting some cough that is dry and hacking and requesting a cough syrup. Medications ordered. Patient also currently undergoing 2-D echo and cardiology now following. Recommend continue telemetry monitoring. Case management also following and will need to discuss further about discharge planning. PT/OT to evaluate the patient Review of systems: Constitutional: No reports of fatigue, fever, or chills Cardiovascular: No reports of chest pain or palpitations Respiratory: No reports of shortness of breath, reports dry hacking cough GI: No reports of nausea, vomiting, or diarrhea : No reports of dysuria or retention Neurovascular: reports of generalized weakness All medications have been reviewed Active Medications Acetaminophen (Acetaminophen Tab 325 Mg Tab) 650 mg PO Q6HR PRN PRN Reason: Mild Pain or Fever > 100.5 Last Admin: 01/14/22 23:37 Dose: 650 mg Albuterol Sulfate (Albuterol Nebulized 2.5 Mg/3 Ml) 2.5 mg INHALATION RT-Q6H PRN PRN Reason: Shortness Of Breath Last Admin: 01/14/22 21:22 Dose: 2.5 mg Allopurinol (Allopurinol 300 Mg Tab) 300 mg PO DAILY@0800 [facility] Last Admin: 01/14/22 11:06 Dose: 300 mg Aspirin (Aspirin 81 Mg) 81 mg PO DAILY@0800 [facility] Last Admin: 01/14/22 11:06 Dose: 81 mg Atorvastatin Calcium (Atorvastatin 40 Mg Tab) 40 mg PO HS@2000 [facility] Last Admin: 01/14/22 20:00 Dose: 40 mg Cholecalciferol (Cholecalciferol 125 Mcg (5000 Iu) Tablet) 250 mcg PO DAILY@0800 [facility] Last Admin: 01/14/22 11:06 Dose: 250 mcg Cyanocobalamin (Cyanocobalamin 500 Mcg Tab) 1,000 mcg PO DAILY@0800 [facility] Last Admin: 01/13/22 09:30 Dose: 1,000 mcg Docusate Sodium (Docusate 100 Mg Cap) 100 mg PO BID PRN PRN Reason: Constipation Last Admin: 01/12/22 10:27 Dose: 100 mg Gabapentin (Gabapentin 300 Mg Cap) 600 mg PO TID@0600,1400,2200 [facility] Last Admin: 01/15/22 05:19 Dose: 600 mg Guaifenesin (Guaifenesin Syrup 100mg/5ml 200 Mg/10 Ml Cup) 200 mg PO Q6HR PRN PRN Reason: Cough Last Admin: 01/15/22 05:19 Dose: 200 mg Heparin Sodium (Porcine) (Heparin Sodium,Porcine/Pf 5,000 Unit/0.5 Ml Syringe) 5,000 unit SQ Q8HR [facility] Last Admin: 01/14/22 23:34 Dose: 5,000 unit Hydroxychloroquine Sulfate (Hydroxychloroquine Sulfate 200 Mg Tab) 200 mg PO DAILY@0900 [facility] Last Admin: 01/14/22 11:06 Dose: 200 mg Sodium Chloride (Saline 0.9%) 1,000 mls @ 20 mls/hr IV .Q24H [facility] Last Admin: 01/14/22 17:22 Dose: Not Given Cefepime HCl 2 gm/ Sodium (Chloride) 100 mls @ 25 mls/hr IVPB Q12HR [facility]; Protocol Last Admin: 01/14/22 19:54 Dose: 25 mls/hr Metoprolol Tartrate (Metoprolol Tartrate 50 Mg Tab) 50 mg PO BID [facility] Last Admin: 01/14/22 20:00 Dose: 50 mg Metronidazole (Metronidazole 500 Mg Tab) 500 mg PO TID [facility]; Protocol Last Admin: 01/14/22 20:00 Dose: 500 mg Miscellaneous Information (Magnesium Replacement Protocol 1 Each Misc) 1 each MISCELLANE DAILY PRN; Protocol PRN Reason: Per Protocol Miscellaneous Information (Potassium Replacement Protocol 1 Each Misc) 1 each MISCELLANE DAILY PRN; Protocol PRN Reason: Per Protocol Miscellaneous Information (Magnesium Replacement Protocol 1 Each Misc) 1 each MISCELLANE DAILY PRN; Protocol PRN Reason: Per Protocol Miscellaneous Information (Potassium Replacement Protocol 1 Each Misc) 1 each MISCELLANE DAILY PRN; Protocol PRN Reason: Per Protocol Naloxone HCl (Naloxone 0.4 Mg/Ml 1 Ml Vial) 0.2 mg IV Q2M PRN PRN Reason: Opioid Reversal Ondansetron HCl (Ondansetron 4 Mg/2 Ml Vial) 4 mg IVP Q6HR PRN PRN Reason: Nausea And Vomiting Last Admin: 01/14/22 11:00 Dose: 4 mg Pantoprazole Sodium (Pantoprazole 40 Mg Tablet) 40 mg PO HS@2000 [facility] Last Admin: 01/14/22 19:59 Dose: 40 mg Prednisone (Prednisone 5 Mg Tab) 5 mg PO DAILY@0800 [facility] Last Admin: 01/14/22 11:06 Dose: 5 mg Physical exam: Patient is lying in the bed , awake, alert x2. Morbidly obese, well-developed, well-nourished HEENT: Normocephalic. Neck is supple. Pupils reactive. Nostrils clear. Oral cavity is moist. Neck reveals no JVD, carotid bruits, or thyromegaly. CHEST EXAMINATION: Trachea is central. Symmetrical expansion. diminished breath sounds bilaterally with no wheezing or rhonchi noted CARDIAC: Normal S1, S2 muffled ABDOMEN: Soft. Obese. Bowel sounds normal. No organomegaly. No abdominal bruits. Extremities: Right lower extremity wound and skin graft over the calf region noted. No discharge drainage noted today.. Minimal redness and warmth.. No clubbing or cyanosis Neurologically awake, alert, oriented to self. Diffuse weakness noted. No loss focal deficits noted Skin: No rash or skin lesions. Psychiatric: Cooperative. lethargic Musculoskeletal: No joint swelling or deformity. Assessment: Recent right lower extremity cellulitis and calf wound infection with skin graft and was discharged home on cefepime and metronidazole from [facility] to be completed by 01/17/2022. Fever with chest x-ray findings of possible lung base infiltration/pneumonia. Metabolic and toxic encephalopathy due to infection. improved. Coronary artery disease Chronic CHF. Ejection fraction not known. Moderate arthritis currently on Plaquenil and prednisone 5 mg daily Hypertension Hyperlipidemia DVT prophylaxis with heparin subcu Full code Plan: Patient will be continued on antibiotics the form of cefepime and Flagyl.. Wound care and ID following. Patient has a non-functioning PICC line and will be removed by nursing staff today. Apparently per [facility] records patient was to continue with IV antibiotic therapy until 01/17/2022 and no documented cultures but the documentation report states Pseudomonas from the wound. Patient to continue with IV antibiotic treatment here until 01/17 and will discuss further with ID if requiring continued IV antibiotic therapy or oral antibiotics. Recommend to continue with telemetry monitoring and cardiology following and 2-D echo ordered and currently being obtained and report is pending Recommend to continue with current medications. Recommend follow up labs in am Due to multiple complex medical issues, Prognosis is guarded time. Plan is to return to [facility] on discharge once stable. Will discuss with case management about discharge planning The impression and plan of care has been dictated by Nurse Abraham Prac titioner as directed. Dr. Troy MD I have performed a history and examination and MDM of this patient, discussed the same with the dictator, and agree with the dictator's assessment and plan as written ,documented as a scribe. Based on total visit time, I have performed more than 50% of the visit. Objective - Vital Signs Vital signs: Vital Signs Temp 98.1 F 01/14/22 07:41 Pulse 93 01/14/22 07:41 Resp 16 01/14/22 07:41 BP 111/67 01/14/22 07:41 Pulse Ox 92 L 01/14/22 01:10 FiO2 Intake & Output 01/13/22 01/14/22 01/14/22 18:59 06:59 18:59 Output Total 800 550 Balance -800 -550 Output: Urine 800 550 Stool 0 Other: Voiding Method External Catheter External Catheter # Bowel Movements 1 1 - Labs CBC & Chem 7: 01/15/22 04:32 01/14/22 05:45 Labs: Abnormal Lab Results - Last 24 Hours (Table) 01/14/22 Range/Units 05:45 Potassium 3.4 L (3.5-5.1) mmol/L BUN 24 H (7-17) mg/dL
[2022-01-15] MEDS: ASPIRIN 81 MG PO SCH (09:33)
[2022-01-15] MEDS: CEFEPIME 2 GM in SODIUM CHLORIDE 0.9% 100 ML IVPB SCH ×2 (09:33→22:42)
[2022-01-15] MEDS: metroNIDAZOLE 500 MG TAB PO SCH ×3 (09:33→22:41)
[2022-01-15] MEDS: CYANOCOBALAMIN 500 MCG TAB PO SCH (09:33)
[2022-01-15] MEDS: CHOLECALCIFEROL 125 MCG (5000 IU) TABLET PO SCH (09:33)
[2022-01-15] MEDS: HEPARIN SODIUM,PORCINE/PF 5,000 UNIT/0.5 ML SYRINGE SQ SCH ×3 (09:34→23:09)
[2022-01-15] MEDS: allopurinoL 300 MG TAB PO SCH (09:34)
[2022-01-15] MEDS: HYDROXYCHLOROQUINE SULFATE 200 MG TAB PO SCH (09:34)
[2022-01-15] MEDS: METOPROLOL TARTRATE 50 MG TAB PO SCH ×2 (09:34→22:41)
[2022-01-15] MEDS: predniSONE 5 MG TAB PO SCH (09:34)
[2022-01-15] MEDS: ACETAMINOPHEN TAB 325 MG TAB PO PRN ×2 (09:40→22:53)
--- NOTE | 2022-01-15 10:36 | P.PN ---
Subjective This is a pleasant 71-year-old female past medical history significant for coronary artery disease (unknown details), congestive heart failure (unknown details), hypertension, hyperlipidemia, rheumatoid arthritis, recent admission to [facility] for cellulitis. 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 We have been asked to see in consultation for arrhythmia. Patient initially presented to the hospital on 01/07/2022 from an extended care facility to altered mental status, fever. Patient was recently admitted to [facility] due to right lower extremity cellulitis and wound infection. She was discharged to [facility] on cefepime and Flagyl via PICC line. Infectious disease is following the patient. 01/15/2022 Patient seen and examined at bedside, no acute distress. No complaints. VSS. Telemetry reviewed, patient maintaining sinus mechanism with occasional PVCs. PVCs have improved over the past 24 hours. Echocardiogram revealed EF of 50- 55%, no significant wall motion abnormalities. Patient denies any chest pain, shortness of breath, lightheadedness, dizziness, syncope or near syncope. Current cardiac medications include Entresto 24-26mg BID, spironolactone 25 mg daily, carvedilol 3.125 mg twice a day, Lasix 40 mg daily, atorvastatin 40 mg nightly, aspirin 81 mg daily her home medications. BMP labs pending, Mag 2.1. PHYSICAL EXAMINATION Blood pressure 122/64, heart rate 64, afebrile, saturations 90-93% on rooom air CONSTITUTIONAL: No apparent distress. HEENT: Head is normocephalic. Pupils are equal, round. Sclerae anicteric. Mucous membranes of the mouth are moist. No JVD. CHEST EXAMINATION: Lungs are clear to auscultation. No chest wall tenderness is noted on palpation or with deep breathing. HEART EXAMINATION: Regular rate and rhythm. S1, S2 heard. Systolic murmur noted. No gallops or rubs ABDOMEN: Soft, nontender. Positive bowel sounds. EXTREMITIES: 2+ peripheral pulses, no lower extremity edema and no calf tenderness. NEUROLOGIC EXAMINATION: Patient is awake, alert and oriented x2 ASSESSMENT Premature ventricular complexes, asymptomatic Altered mental status Fever Hypokalemia Anemia Cellulitis of right lower extremity, recently treated at [place] Echocardiogram revealed EF 50-55%. TSH within normal limits Continue beta misael Monitor electrolytes Rest of management per primary We will follow the patient as needed. Please reconsult if needed. Nurse practitioner note has been reviewed by physician. Signing provider agrees with the documented findings, assessment, and plan of care. Objective - Vital Signs Vital signs: Vital Signs Temp 98.5 F 01/15/22 07:34 Pulse 64 01/15/22 07:34 Resp 18 01/15/22 07:34 BP 122/64 01/15/22 07:34 Pulse Ox 90 L 01/15/22 07:34 FiO2 Intake & Output 01/14/22 01/15/22 01/15/22 18:59 06:59 18:59 Intake Total 120 Output Total 300 600 Balance -300 -600 120 Weight 118.5 kg Intake: Oral 120 Output: Urine 300 600 Stool 0 Other: Voiding Method External Catheter External Catheter External Catheter - Labs CBC & Chem 7: 01/15/22 04:32 01/14/22 05:45 Labs: Abnormal Lab Results - Last 24 Hours (Table) 01/15/22 Range/Units 04:32 RBC 3.12 L (3.80-5.40) m/uL Hgb 9.1 L (11.4-16.0) gm/dL Hct 31.0 L (34.0-46.0) % MCHC 29.4 L (31.0-37.0) g/dL RDW 17.2 H (11.5-15.5) %
[2022-01-15 11:19] LABS: African American GFR (CKD) 64.7 (60.0-200.0); Anion Gap 12.8 mmol/L (10.00-18.00); BUN/Creat Ratio 19.7 Ratio (12.00-20.00); Blood Urea Nitrogen 19.7 mg/dL (9.0-27.0); Calcium 8.8 mg/dL (8.7-10.3); Carbon Dioxide 24.2 mmol/L (20.0-27.5); Non-African American GFR(CKD) 55.8 (60.0-200.0); Potassium 3.9 mmol/L (3.5-5.5)
--- NOTE | 2022-01-15 11:55 | XR ---
EXAMINATION TYPE: XR chest 1V portable DATE OF EXAM: 01/15/2022 COMPARISON: 01/07/2022 HISTORY: Shortness of breath TECHNIQUE: Single frontal view of the chest is obtained. FINDINGS: A prominent interstitium but there is limited inspiration. Postsurgical change right shoul lewis suggestion of subluxation of the left shoulder. Heart enlarged and there is a retrocardiac densit y which may represent a large hiatal hernia. IMPRESSION: 1. Cardiomegaly correlate for mild central venous congestion or interstitial pneumonitis. Nonspecific large retrocardiac density could represent a large hiatal hernia. 2. Correlate for subluxation or dislocation of the left humeral head.
[2022-01-15] MEDS ORDERED: FUROSEMIDE 10 MG/ML 4 ML VIAL IV STA (14:04)
[2022-01-15] MEDS: SODIUM CHLORIDE 0.9% 1,000 ML IV SCH (14:51)
--- NOTE | 2022-01-15 15:50 | P.CNOR ---
History of Present Illness - [facility] Consult date: 01/15/22 Requesting physician: Jocelynn Nascimento Consult reason: other (Left shoulder subluxation) History of present illness: Pleasant 71-year-old female who is seen at bedside by myself and Dr. Artem Bland for further evaluation of her left shoulder after chest x-ray imaging showed evidence of subluxation of her left shoulder. Patient denies specific injury to her left shoulder. She is not currently complaining of any pain in her left shoulder. She is able to use her left shoulder for her regular activities of daily living. Patient states she is known have rheumatoid arthritis and has previously undergone total hip arthroplasty bilaterally, total knee arthroplasty bilaterally, and hemiarthroplasty right shoulder. She has not had treatment evaluation specifically for her left shoulder. She is not currently having any complaints about her left shoulder. She is being seen by multiple medical providers during her admission for multiple other medical diagnoses including right lower extremity cellulitis and calf wound infection status post skin graft. Other medical diagnoses include coronary artery disease chronic CHF, hypertension, and hyperlipidemia. Patient is currently resting comfortably in bed. Past Medical History Past Medical History: Coronary Artery Disease (CAD), Heart Failure, GERD/Reflux, Hyperlipidemia, Hypertension, Rheumatoid Arthritis (RA) Additional Past Medical History / Comment(s): cellulitis, anemia History of Any Multi-Drug Resistant Organisms: None Reported Past Surgical History: No Surgical Hx Reported Past Anesthesia/Blood Transfusion Reactions: Unable to Obtain Past Psychological History: No Psychological Hx Reported Smoking Status: Unknown if ever smoked Past Alcohol Use History: None Reported Past Drug Use History: None Reported Medications and Allergies Home Medications Medication Instructions Recorded Confirmed Type Albuterol Nebulized [Ventolin 2.5 mg INHALATION RT-Q6H PRN 01/07/22 01/07/22 History Nebulized] Aspirin EC [Ecotrin Low Dose] 81 mg PO DAILY@0800 01/07/22 01/07/22 History Atorvastatin [Lipitor] 40 mg PO HS@199901/07/22 01/07/22 History Baclofen [Lioresal] 10 mg PO TID@0600,1400,2200 01/07/22 01/07/22 History Cefepime [Maxipime] 2 gm IVP TID@0000,0800,1600 01/07/22 01/07/22 History Cholecalciferol (Vitamin D3) 250 mcg PO DAILY@0800 22 06/14/22 History [Vitamin D3 (125 MCG = 5,000 IU)] Cyanocobalamin [Vitamin B-12] 1,000 mcg PO DAILY@79901/07/22 01/07/22 History Diclofenac Sodium Gel [Voltaren 1 applic TOPICAL QID@00,06,,01/07/22 01/07/22 History Gel] Docusate [Colace] 100 mg PO BID@0800,199901/07/22 01/07/22 History Ferrous Sulfate [Feosol] 325 mg PO DAILY@79901/07/22 01/07/22 History Furosemide [Lasix] 20 mg PO DIRECTED 01/07/22 01/07/22 History Furosemide [Lasix] 40 mg PO DAILY@79901/07/22 01/07/22 History Gabapentin [Neurontin] 600 mg PO TID@0600,1400,2200 01/07/22 01/07/22 History HYDROcodone/APAP 10-325MG [[place] 1 tab PO Q8H PRN 01/07/22 01/07/22 History 10-325] Hydrocerin Cream 1 applic TOPICAL BID@0800,199901/07/22 01/07/22 History Hydroxychloroquine Sulfate 200 mg PO DAILY@0901/07/22 01/07/22 History [Plaquenil] Loratadine 10 mg PO DAILY@79901/07/22 01/07/22 History Magnesium Chloride-Calcium 64-106 1 tab PO DAILY@79901/07/22 01/07/22 History Mg Omeprazole 20 mg PO HS@199901/07/22 01/07/22 History Sacubitril/Valsartan [Entresto 24 1 tab PO BID@0800,199901/07/22 01/07/22 Hist ory mg-26 mg Tablet] Spironolactone [Aldactone] 25 mg PO DAILY@0800 PRN 01/07/22 01/07/22 History allopurinoL 300 mg PO DAILY@0801/07/22 01/07/22 History carvediloL [Coreg] 3.125 mg PO BID@0800,199901/07/22 01/07/22 History guaiFENesin-DM 100-10MG/5ML 5 ml PO Q4H PRN 01/07/22 01/07/22 History [Robitussin DM] metroNIDAZOLE [Flagyl] 500 mg PO DIRECTED 01/07/22 01/07/22 History metroNIDAZOLE [Flagyl] 500 mg PO TID@0600,1400,2200 01/07/22 01/07/22 History polyethylene glycoL 3350 [Miralax] 17 gm PO DAILY@0800 01/07/22 01/07/22 History predniSONE 5 mg PO DAILY@0800 01/07/22 01/07/22 History Allergies Allergy/AdvReac Type Severity Reaction Status Date / Time Iodinated Contrast Media Allergy Unknown Verified 01/07/22 15:46 methotrexate Allergy Unknown Verified 01/07/22 15:46 Penicillins Allergy Unknown Verified 01/07/22 15:46 shellfish derived [Shellfish] Allergy Unknown Verified 01/07/22 15:46 Sulfa (Sulfonamide Allergy Unknown Verified 01/07/22 15:46 Antibiotics) theophylline Allergy Unknown Verified 01/07/22 15:46 Physical Examination Osteopathic Statement: *. No significant issues noted on an osteopathic structural exam other than those noted in the History and Physical/Consult. 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; subluxation of the left humeral head - Labs Labs: Abnormal Lab Results - Last 24 Hours (Table) 01/15/22 01/15/22 Range/Units 04:32 04:35 RBC 3.12 L (3.80-5.40) m/uL Hgb 9.1 L (11.4-16.0) gm/dL Hct 31.0 L (34.0-46.0) % MCHC 29.4 L (31.0-37.0) g/dL RDW 17.2 H (11.5-15.5) % Est GFR (CKD-EPI)NonAf 55.8 L (60.0-200.0) H & H 01/07/22 01/08/22 01/09/22 Range/Units 14:44 11:34 05:59 Hgb 10.1 L 11.1 L 10.0 L (11.4-16.0) gm/dL Hct 34.0 36.1 34.2 (34.0-46.0) % 01/11/22 01/13/22 01/15/22 Range/Units 12:10 06:02 04:32 Hgb 9.5 L 9.3 L 9.1 L (11.4-16.0) gm/dL Hct 31.6 L 31.2 L 31.0 L (34.0-46.0) % Coagulation 01/07/22 Range/Units 14:44 INR 1.3 H (<1.2) Result Diagrams: 01/15/22 04:32 01/15/22 04:35 Assessment and Plan Assessment: Assessment: 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 Reduced range of motion left shoulder Right lower extremity cellulitis and calf wound infection status post skin graft Coronary artery disease Chronic CHF Hypertension Hyperlipidemia (1) Shoulder subluxation, left Current Visit: Yes Status: Acute Code(s): S43.002A - UNSPECIFIED SUBLUXATION OF LEFT SHOULDER JOINT, INIT ENCNTR SNOMED Code(s): 622830707 (2) Lower extremity cellulitis Current Visit: Yes Status: Acute Code(s): L03.119 - CELLULITIS OF UNSPECIFIED PART OF LIMB SNOMED Code(s): 839692703 (3) Coronary artery disease Current Visit: Yes Status: Acute Code(s): I25.10 - ATHSCL HEART DISEASE OF FALSE [place] CORONARY ARTERY W/O ANG PCTRS SNOMED Code(s): 83702610 (4) Congestive heart failure Current Visit: Yes Status: Acute Code(s): I50.9 - HEART FAILURE, UNSPECIFIED SNOMED Code(s): 21048775 (5) Hypertension Current Visit: Yes Status: Acute Code(s): I10 - ESSENTIAL (PRIMARY) HYPERTENSION SNOMED Code(s): 66567834 Plan: Plan: 1. Chest x-ray imaging showed evidence of possible subluxation of her left shoulder. Left shoulder x-ray imaging was ordered and performed which did show evidence of chronic erosion of left humeral head with subluxation of the left humeral head. Patient is able to perform independent active range of motion of the left shoulder without significant difficulty with some reduced range of motion with abduction. She has no pain with passive range of motion of the left shoulder. She has no pain on palpation of the left shoulder. Examination of the left shoulder does not show any significant erythema, bruising, swelling, or obvious sign of infection. Patient does appear to have a chronic subluxation of her left humeral head. At this time, we'll plan to have her continue with conservative treatment options. We're not currently planning for further imaging, testing, or invasive treatment during her admission to the hospital. She may continue to perform active range of motion of her left shoulder and may perform her regular activities of daily living with her left shoulder as she has been performing to her tolerance. She has been utilizing a walker to any ambulation and she may continue to do so. We will plan to have her follow-up in the outpatient setting in approximately 2 weeks for further evaluation. Patient may follow-up with Moose Teague PA-C or Dr. Artem Mendieta at [facility] in 2-3 weeks following discharge. 2. Patient will continue to be seen and examined by multiple medical providers for her multiple significant medical diagnoses the patient was seen and examined , and the images were revied. I agree with thte above dictation. we will continue conservative care nad follow up as out patient regarding patients shoulder. Time with Patient: Greater than 30 (Including obtaining history, physical ex amination, reviewing of imaging, and dictation.)
--- NOTE | 2022-01-15 16:13 | XR ---
EXAMINATION TYPE: XR shoulder complete LT DATE OF EXAM: 01/15/2022 COMPARISON: NONE INDICATION: Subluxation of glenohumeral joint TECHNIQUE: 3 views of the left shoulder FINDINGS: Apparent anterior inferior dislocation of the humeral head in relation to the glenoid, please correla te clinically. Diffuse osteopenia. Market degenerative changes of the acromioclavicular joint. No definite acute fracture line identifie d yet suboptimally assessed due to osteopenia. IMPRESSION: Anterior-inferior dislocation of the humeral head in relation to the glenoid as described above.
[2022-01-15 16:30] VITALS: BMI 44.8
[2022-01-15] MEDS: ONDANSETRON 4 MG/2 ML VIAL IVP PRN (20:10)
[2022-01-15] MEDS: PANTOPRAZOLE 40 MG TABLET PO SCH (22:41)
[2022-01-15] MEDS: ATORVASTATIN 40 MG TAB PO SCH (22:41)
[2022-01-16] MEDS: GABAPENTIN 300 MG CAP PO SCH ×3 (05:10→20:12)
[2022-01-16] MEDS: ACETAMINOPHEN TAB 325 MG TAB PO PRN ×3 (05:13→20:13)
--- NOTE | 2022-01-16 06:01 | P.PN ---
Subjective Progress Note Date: 01/15/22 Patient is a 71-year-old female with a known history of coronary artery disease, hypertension, hyperkalemia, rheumatoid arthritis was sent to Hospital from extended care facility due to altered mental status for the past 2 days. Apparently Patient was recently admitted to [facility] due to right lower extremity cellulitis and wound infection and was discharged to [facility] on cefepime and Flagyl. Patient is a poor historian and confused. Could not provide much history. Denied any complaints of leg pain. No fever no chills. No chest pain or shortness of breath. Denied any headache or dizziness or lightheadedness. Patient was febrile with T-max 101.1 on admission. Chest x-ray showed cardiom egaly with suspected pulmonary edema and questionable posterior lung infiltration in the lateral view. CT head showed no acute intracranial process. Nonspecific white matter changes. Likely secondary to chronic small ischemic disease. EKG showed sinus rhythm with premature atrial complexes. Laboratory data showed WBC 7.9 hemoglobin 10.1 and platelets 365 INR 1.3 Sodium 136 potassium 3.6 chloride 98 bicarb is 32 BUN 29 and creatinine 0.91 and blood sugar is 150 Pro-calcitonin level is 0.0 to Urinalysis showed cloudy with 2+ protein and moderate blood. Small leukocyte esterase. Influenza EA, B, RSV and covid 19 PCR not detected. 01/09/2022 Patient currently resting in the bed. Awake alert and oriented 2. Patient does have confusion and talking incoherently. Patient has been afebrile. Currently being continued on antibiotics in the form of cefepime and Flagyl with the recent infection and skin graft of the right calf region. There are any chest pain or shortness of breath. No cough or sputum production. No headache or dizziness or lightheadedness. 01/10/2022 Patient is currently resting in bed. Mental status is improving. Patient is more awake and alert. No complaints of chest pain or shortness of breath. Patient has been afebrile. No nausea vomiting or abdominal pain or diarrhea. Currently on antibiotics in the form of cefepime and Flagyl. Follow-up right lower extremity calf ulcer wound cultures. Skin graft was peeling off on one side. No purulent discharge noted. Wound dressing is being done. Laboratory data reviewed. Blood pressure is stable. 01/11/2022 Patient is awake alert and oriented. No complaints of chest pain. Denied any right lower extremity pain. No nausea vomiting abdominal diarrhea. Currently being continued on antibiotics in the form of cefepime and Flagyl. ID is on board. Patient is being cardiogram wound care. Laboratory showed WBC 4.6 hemoglobin 9.5 and platelets 275 Sodium 135 potassium 3.8 chloride 102 bicarb is 30 BUN 33 and creatinine 1.07. Calcium 8.1. Cultures not available. 01/13/2020 Patient is resting in the bed. Awake alert and oriented. No complaints of leg pain. On IV antibiotics. ID is on board. Continue with current antibiotics at this time. No nausea vomiting abdominal pain or diarrhea. Tolerating oral diet. Anticipate discharge [facility] care facility in the next 24 hours with final ID antibiotic recommendations. 01/13/2022 Patient is seen this morning and ID following. Cardiology consulted and recommend to continue with telemetry monitoring. Patient is maintained on oral flagyl and cefepime and awaiting [facility] records. Patient has non-functioning PICC, possibly occluded and will discuss with ID about discharge planning. Patient is afebrile and denies any chest pain or shortness of breath. HR elevated for a brief period at 119 and possible arrhythmia noted and cardiology has been consulted. Case management/social work following and plan is ECF return once stable. 01/14/2022 Patient is seen in follow-up this morning and continues on IV cefepime along with oral Flagyl and infectious disease following. Patient is status post debridement at [facility] and awaiting medical records. It was documented the infection with Pseudomonas and was to continue with IV antibiotics until 01/17/2022. Patient did have a PICC line that has been occluded and is scheduled to be removed by nursing staff. Will discuss further with infectious disease, but currently continuing with current treatment and finishing antibiotics 01/17/2022. Patient is afebrile and denies chest pain or shortness of breath. Patient is reporting some cough that is dry and hacking and requesting a cough syrup. Medications ordered. Patient also currently undergoing 2-D echo and cardiology now following. Recommend continue telemetry monitoring. Case management also following and will need to discuss further about discharge planning. PT/OT to evaluate the patient 01/15/2022 Patient is seen today and continues with local wound care and IV cefepime and flagyl with ID following. Plan is to continue with abx until the and will discuss with ID about requiring abx on discharge. Chest xray ordered as patient 02 saturations were 90%. Patient is on room air and denies chest pain or shortness of breath. Patient with weakness and will continue with PT following and plan is to return to rehab on discharge. Patient will need follow up with [facility] on discharge. Patient is afebrile. Some subluxation of the left shoulder noted along with some vascular congestion on the chest xray and consu lted ortho and appreciate input and recommendations. Review of systems: Constitutional: No reports of fatigue, fever, or chills Cardiovascular: No reports of chest pain or palpitations Respiratory: No reports of shortness of breath, reports dry hacking cough GI: No reports of nausea, vomiting, or diarrhea : No reports of dysuria or retention Neurovascular: reports of generalized weakness All medications have been reviewed Active Medications Acetaminophen (Acetaminophen Tab 325 Mg Tab) 650 mg PO Q6HR PRN PRN Reason: Mild Pain or Fever > 100.5 Last Admin: 01/16/22 05:13 Dose: 650 mg Albuterol Sulfate (Albuterol Nebulized 2.5 Mg/3 Ml) 2.5 mg INHALATION RT-Q6H PRN PRN Reason: Shortness Of Breath Last Admin: 01/14/22 21:22 Dose: 2.5 mg Allopurinol (Allopurinol 300 Mg Tab) 300 mg PO DAILY@0800 [facility] Last Admin: 01/15/22 09:34 Dose: 300 mg Aspirin (Aspirin 81 Mg) 81 mg PO DAILY@0800 [facility] Last Admin: 01/15/22 09:33 Dose: 81 mg Atorvastatin Calcium (Atorvastatin 40 Mg Tab) 40 mg PO HS@1999 [facility] Last Admin: 01/15/22 22:41 Dose: 40 mg Cholecalciferol (Cholecalciferol 125 Mcg (5000 Iu) Tablet) 250 mcg PO DAILY@0800 [facility] Last Admin: 01/15/22 09:33 Dose: 250 mcg Cyanocobalamin (Cyanocobalamin 500 Mcg Tab) 1,000 mcg PO DAILY@0800 [facility] Last Admin: 01/15/22 09:33 Dose: 1,000 mcg Docusate Sodium (Docusate 100 Mg Cap) 100 mg PO BID PRN PRN Reason: Constipation Last Admin: 01/12/22 10:27 Dose: 100 mg Gabapentin (Gabapentin 300 Mg Cap) 600 mg PO TID@0600,1400,2200 [facility] Last Admin: 01/16/22 05:10 Dose: 600 mg Guaifenesin (Guaifenesin Syrup 100mg/5ml 200 Mg/10 Ml Cup) 200 mg PO Q6HR PRN PRN Reason: Cough Last Admin: 01/15/22 05:19 Dose: 200 mg Heparin Sodium (Porcine) (Heparin Sodium,Porcine/Pf 5,000 Unit/0.5 Ml Syringe) 5,000 unit SQ Q8HR [facility] Last Admin: 01/15/22 23:09 Dose: 5,000 unit Hydroxychloroquine Sulfate (Hydroxychloroquine Sulfate 200 Mg Tab) 200 mg PO DAILY@0900 [facility] Last Admin: 01/15/22 09:34 Dose: 200 mg Sodium Chloride (Saline 0.9%) 1,000 mls @ 20 mls/hr IV .Q24H [facility] Last Admin: 01/15/22 14:51 Dose: 20 mls/hr Cefepime HCl 2 gm/ Sodium (Chloride) 100 mls @ 25 mls/hr IVPB Q12HR [facility]; Protocol Last Admin: 01/15/22 22:42 Dose: 25 mls/hr Metoprolol Tartrate (Metoprolol Tartrate 50 Mg Tab) 50 mg PO BID [facility] Last Admin: 01/15/22 22:41 Dose: 50 mg Metronidazole (Metronidazole 500 Mg Tab) 500 mg PO TID [facility]; Protocol Last Admin: 01/15/22 22:41 Dose: 500 mg Miscellaneous Information (Magnesium Replacement Protocol 1 Each Misc) 1 each MISCELLANE DAILY PRN; Protocol PRN Reason: Per Protocol Miscellaneous Information (Potassium Replacement Protocol 1 Each Misc) 1 each MISCELLANE DAILY PRN; Protocol PRN Reason: Per Protocol Miscellaneous Information (Magnesium Replacement Protocol 1 Each Misc) 1 each MISCELLANE DAILY PRN; Protocol PRN Reason: Per Protocol Miscellaneous Information (Potassium Replacement Protocol 1 Each Misc) 1 each MISCELLANE DAILY PRN; Protocol PRN Reason: Per Protocol Naloxone HCl (Naloxone 0.4 Mg/Ml 1 Ml Vial) 0.2 mg IV Q2M PRN PRN Reason: Opioid Reversal Ondansetron HCl (Ondansetron 4 Mg/2 Ml Vial) 4 mg IVP Q6HR PRN PRN Reason: Nausea And Vomiting Last Admin: 01/15/22 20:10 Dose: 4 mg Pantoprazole Sodium (Pantoprazole 40 Mg Tablet) 40 mg PO HS@2000 [facility] Last Admin: 01/15/22 22:41 Dose: 40 mg Prednisone (Prednisone 5 Mg Tab) 5 mg PO DAILY@0800 [facility] Last Admin: 01/15/22 09:34 Dose: 5 mg Physical exam: Patient is lying in the bed , awake, alert x2. Morbidly obese, well-developed, well-nourished HEENT: Normocephalic. Neck is supple. Pupils reactive. Nostrils clear. Oral cavity is moist. Neck reveals no JVD, carotid bruits, or thyromegaly. CHEST EXAMINATION: Trachea is central. Symmetrical expansion. diminished breath sounds bilaterally with no wheezing or rhonchi noted CARDIAC: Normal S1, S2 muffled ABDOMEN: Soft. Obese. Bowel sounds normal. No organomegaly. No abdominal bruits. Extremities: Right lower extremity wound and skin graft over the calf region noted. No discharge drainage noted today. No clubbing or cyanosis Neurologically awake, alert, oriented x2. Diffuse weakness noted. Skin: No rash or skin lesions. Psychiatric: Cooperative. lethargic Musculoskeletal: No joint swelling or deformity. Assessment: Recent right lower extremity cellulitis and calf wound infection with skin graft and was discharged home on cefepime and metronidazole from [facility] to be completed by 01/17/2022. Fever with chest x-ray findings of possible lung base infiltration/pneumonia. chronic subluxation of the left humeral head noted on xray Metabolic and toxic encephalopathy due to infection. improved. Coronary artery disease Chronic CHF. Ejection fraction not known. Moderate arthritis currently on Plaquenil and prednisone 5 mg daily Hypertension Hyperlipidemia DVT prophylaxis with heparin subcu Full code Plan: Patient will be continued on antibiotics the form of cefepime and Flagyl.. Wound care and ID following. Patient PICC line was removed by nursing staff. Apparently per [facility] records patient was to continue with IV antibiotic therapy until 01/17/2022 and no documented cultures but the documentation report states Pseudomonas from the wound. Patient to continue with IV antibiotic treatment here until 01/17 and will discuss further with ID if requiring continued IV antibiotic therapy or oral antibiotics. Recommend to continue with telemetry monitoring and cardiology following and 2-D echo ordered Recommend to continue with current medications. Due to multiple complex medical issues, Prognosis is guarded time. Plan is to return to [facility] on discharge once stable. Will discuss with case management about discharge planning The impression and plan of care has been dictated by Jocelynn Nascimento, Nurse Practitioner as directed. Dr. Troy MD I have performed a history and examination and MDM of this patient, discussed the same with the dictator, and agree with the dictator's assessment and plan as written ,documented as a scribe. Based on total visit time, I have performed more than 50% of the visit. Objective - Vital Signs Vital signs: Vital Signs Temp 97.9 F 01/15/22 02:00 Pulse 77 01/15/22 02:00 Resp 18 01/15/22 02:00 BP 107/66 01/15/22 02:00 Pulse Ox 93 L 01/15/22 02:00 FiO2 Intake & Output 01/14/22 01/15/22 01/15/22 18:59 06:59 18:59 Output Total 300 600 Balance -300 -600 Weight 118.5 kg Output: Urine 300 600 Stool 0 Other: Voiding Method External Catheter External Catheter - Labs CBC & Chem 7: 01/15/22 04:32 01/15/22 04:35
[2022-01-16] MEDS: predniSONE 5 MG TAB PO SCH (08:26)
[2022-01-16] MEDS: CYANOCOBALAMIN 500 MCG TAB PO SCH (08:26)
[2022-01-16] MEDS: METOPROLOL TARTRATE 50 MG TAB PO SCH ×2 (08:26→20:13)
[2022-01-16] MEDS: HYDROXYCHLOROQUINE SULFATE 200 MG TAB PO SCH (08:26)
[2022-01-16] MEDS: metroNIDAZOLE 500 MG TAB PO SCH ×3 (08:26→20:13)
[2022-01-16] MEDS: allopurinoL 300 MG TAB PO SCH (08:27)
[2022-01-16] MEDS: CEFEPIME 2 GM in SODIUM CHLORIDE 0.9% 100 ML IVPB SCH ×2 (08:27→20:13)
[2022-01-16] MEDS: ASPIRIN 81 MG PO SCH (08:27)
[2022-01-16] MEDS: CHOLECALCIFEROL 125 MCG (5000 IU) TABLET PO SCH (08:27)
[2022-01-16] MEDS: HEPARIN SODIUM,PORCINE/PF 5,000 UNIT/0.5 ML SYRINGE SQ SCH ×3 (08:27→23:02)
[2022-01-16] MEDS: PANTOPRAZOLE 40 MG TABLET PO SCH (20:13)
[2022-01-16] MEDS: ATORVASTATIN 40 MG TAB PO SCH (20:13)
[2022-01-16] MEDS: ONDANSETRON 4 MG/2 ML VIAL IVP PRN (20:14)
[2022-01-17] MEDS: ACETAMINOPHEN TAB 325 MG TAB PO PRN ×3 (03:41→17:55)
[2022-01-17] MEDS: GABAPENTIN 300 MG CAP PO SCH ×3 (05:04→21:33)
--- NOTE | 2022-01-17 06:29 | P.PN ---
Subjective Progress Note Date: 01/16/22 Patient is a 71-year-old female with a known history of coronary artery disease, hypertension, hyperkalemia, rheumatoid arthritis was sent to Hospital from extended care facility due to altered mental status for the past 2 days. Apparently Patient was recently admitted to due to right lower extremity cellulitis and wound infection and was discharged to [facility] on cefepime and Flagyl. Patient is a poor historian and confused. Could not provide much history. Denied any complaints of leg pain. No fever no chills. No chest pain or shortness of breath. Denied any headache or dizziness or lightheadedness. Patient was febrile with T-max 101.1 on admission. Chest x-ray showed cardiom egaly with suspected pulmonary edema and questionable posterior lung infiltration in the lateral view. CT head showed no acute intracranial process. Nonspecific white matter changes. Likely secondary to chronic small ischemic disease. EKG showed sinus rhythm with premature atrial complexes. Laboratory data showed WBC 7.9 hemoglobin 10.1 and platelets 365 INR 1.3 Sodium 136 potassium 3.6 chloride 98 bicarb is 32 BUN 29 and creatinine 0.91 and blood sugar is 150 Pro-calcitonin level is 0.0 to Urinalysis showed cloudy with 2+ protein and moderate blood. Small leukocyte esterase. Influenza EA, B, RSV and covid 19 PCR not detected. 01/09/2022 Patient currently resting in the bed. Awake alert and oriented 2. Patient does have confusion and talking incoherently. Patient has been afebrile. Currently being continued on antibiotics in the form of cefepime and Flagyl with the recent infection and skin graft of the right calf region. There are any chest pain or shortness of breath. No cough or sputum production. No headache or dizziness or lightheadedness. 01/10/2022 Patient is currently resting in bed. Mental status is improving. Patient is more awake and alert. No complaints of chest pain or shortness of breath. Patient has been afebrile. No nausea vomiting or abdominal pain or diarrhea. Currently on antibiotics in the form of cefepime and Flagyl. Follow-up right lower extremity calf ulcer wound cultures. Skin graft was peeling off on one side. No purulent discharge noted. Wound dressing is being done. Laboratory data reviewed. Blood pressure is stable. 01/11/2022 Patient is awake alert and oriented. No complaints of chest pain. Denied any right lower extremity pain. No nausea vomiting abdominal diarrhea. Currently being continued on antibiotics in the form of cefepime and Flagyl. ID is on board. Patient is being cardiogram wound care. Laboratory showed WBC 4.6 hemoglobin 9.5 and platelets 275 Sodium 135 potassium 3.8 chloride 102 bicarb is 30 BUN 33 and creatinine 1.07. Calcium 8.1. Cultures not available. 01/13/2020 Patient is resting in the bed. Awake alert and oriented. No complaints of leg pain. On IV antibiotics. ID is on board. Continue with current antibiotics at this time. No nausea vomiting abdominal pain or diarrhea. Tolerating oral diet. Anticipate discharge [facility] care facility in the next 24 hours with final ID antibiotic recommendations. 01/13/2022 Patient is seen this morning and ID following. Cardiology consulted and recommend to continue with telemetry monitoring. Patient is maintained on oral flagyl and cefepime and awaiting [facility] records. Patient has non-functioning PICC, possibly occluded and will discuss with ID about discharge planning. Patient is afebrile and denies any chest pain or shortness of breath. HR elevated for a brief period at 119 and possible arrhythmia noted and cardiology has been consulted. Case management/social work following and plan is ECF return once stable. 01/14/2022 Patient is seen in follow-up this morning and continues on IV cefepime along with oral Flagyl and infectious disease following. Patient is status post debridement at [facility] and awaiting medical records. It was documented the infection with Pseudomonas and was to continue with IV antibiotics until 01/17/2022. Patient did have a PICC line that has been occluded and is scheduled to be removed by nursing staff. Will discuss further with infectious disease, but currently continuing with current treatment and finishing antibiotics 01/17/2022. Patient is afebrile and denies chest pain or shortness of breath. Patient is reporting some cough that is dry and hacking and requesting a cough syrup. Medications ordered. Patient also currently undergoing 2-D echo and cardiology now following. Recommend continue telemetry monitoring. Case management also following and will need to discuss further about discharge planning. PT/OT to evaluate the patient 01/15/2022 Patient is seen today and continues with local wound care and IV cefepime and flagyl with ID following. Plan is to continue with abx until the and will discuss with ID about requiring abx on discharge. Chest xray ordered as patient 02 saturations were 90%. Patient is on room air and denies chest pain or shortness of breath. Patient with weakness and will continue with PT following and plan is to return to rehab on discharge. Patient will need follow up with [facility] on discharge. Patient is afebrile. Some subluxation of the left shoulder noted along with some vascular congestion on the chest xray and consu lted ortho and appreciate input and recommendations. 01/16/2022 Patient is seen this morning and maintained on IV cefepime and flagyl. ID following and discussed the plan and patient will receive last dose of abx on 01/17 am and then will be completed with abx therapy and able return to [facility]. Patient will not require antibiotics on discharge. Patient to continue with local wound care to the right lower extremity. Ortho evaluated for the shoulder and appears to be chronic as patient has full range of motion and will follow up in the outpatient setting. Patient is afebrile and denies chest pain or shortness of breath. Review of systems: Constitutional: No reports of fatigue, fever, or chills Cardiovascular: No reports of chest pain or palpitations Respiratory: No reports of shortness of breath GI: No reports of nausea, vomiting, or diarrhea : No reports of dysuria or retention Neurovascular: reports of generalized weakness All medications have been reviewed Active Medications Acetaminophen (Acetaminophen Tab 325 Mg Tab) 650 mg PO Q6HR PRN PRN Reason: Mild Pain or Fever > 100.5 Last Admin: 01/17/22 03:41 Dose: 650 mg Albuterol Sulfate (Albuterol Nebulized 2.5 Mg/3 Ml) 2.5 mg INHALATION RT-Q6H PRN PRN Reason: Shortness Of Breath Last Admin: 01/14/22 21:22 Dose: 2.5 mg Allopurinol (Allopurinol 300 Mg Tab) 300 mg PO DAILY@0800 [facility] Last Admin: 01/16/22 08:27 Dose: 300 mg Aspirin (Aspirin 81 Mg) 81 mg PO DAILY@0800 [facility] Last Admin: 01/16/22 08:27 Dose: 81 mg Atorvastatin Calcium (Atorvastatin 40 Mg Tab) 40 mg PO HS@1999 [facility] Last Admin: 01/16/22 20:13 Dose: 40 mg Cholecalciferol (Cholecalciferol 125 Mcg (5000 Iu) Tablet) 250 mcg PO DAILY@0800 [facility] Last Admin: 01/16/22 08:27 Dose: 250 mcg Cyanocobalamin (Cyanocobalamin 500 Mcg Tab) 1,000 mcg PO DAILY@0800 [facility] Last Admin: 01/16/22 08:26 Dose: 1,000 mcg Docusate Sodium (Docusate 100 Mg Cap) 100 mg PO BID PRN PRN Reason: Constipation Last Admin: 01/12/22 10:27 Dose: 100 mg Gabapentin (Gabapentin 300 Mg Cap) 600 mg PO TID@0600,1400,2200 [facility] Last Admin: 01/17/22 05:04 Dose: 600 mg Guaifenesin (Guaifenesin Syrup 100mg/5ml 200 Mg/10 Ml Cup) 200 mg PO Q6HR PRN PRN Reason: Cough Last Admin: 01/15/22 05:19 Dose: 200 mg Heparin Sodium (Porcine) (Heparin Sodium,Porcine/Pf 5,000 Unit/0.5 Ml Syringe) 5,000 unit SQ Q8HR [facility] Last Admin: 01/16/22 23:02 Dose: 5,000 unit Hydroxychloroquine Sulfate (Hydroxychloroquine Sulfate 200 Mg Tab) 200 mg PO DAILY@0900 [facility] Last Admin: 01/16/22 08:26 Dose: 200 mg Sodium Chloride (Saline 0.9%) 1,000 mls @ 20 mls/hr IV .Q24H [facility] Last Admin: 01/15/22 14:51 Dose: 20 mls/hr Cefepime HCl 2 gm/ Sodium (Chloride) 100 mls @ 25 mls/hr IVPB Q12HR [facility]; Protocol Last Admin: 01/16/22 20:13 Dose: 25 mls/hr Metoprolol Tartrate (Metoprolol Tartrate 50 Mg Tab) 50 mg PO BID [facility] Last Admin: 01/16/22 20:13 Dose: 50 mg Metronidazole (Metronidazole 500 Mg Tab) 500 mg PO TID [facility]; Protocol Last Admin: 01/16/22 20:13 Dose: 500 mg Miscellaneous Information (Magnesium Replacement Protocol 1 Each Misc) 1 each MISCELLANE DAILY PRN; Protocol PRN Reason: Per Protocol Miscellaneous Information (Potassium Replacement Protocol 1 Each Misc) 1 each MISCELLANE DAILY PRN; Protocol PRN Reason: Per Protocol Miscellaneous Information (Magnesium Replacement Protocol 1 Each Misc) 1 each MISCELLANE DAILY PRN; Protocol PRN Reason: Per Protocol Miscellaneous Information (Potassium Replacement Protocol 1 Each Misc) 1 each MISCELLANE DAILY PRN; Protocol PRN Reason: Per Protocol Naloxone HCl (Naloxone 0.4 Mg/Ml 1 Ml Vial) 0.2 mg IV Q2M PRN PRN Reason: Opioid Reversal Ondansetron HCl (Ondansetron 4 Mg/2 Ml Vial) 4 mg IVP Q6HR PRN PRN Reason: Nausea And Vomiting Last Admin: 01/16/22 20:14 Dose: 4 mg Pantoprazole Sodium (Pantoprazole 40 Mg Tablet) 40 mg PO HS@2000 [facility] Last Admin: 01/16/22 20:13 Dose: 40 mg Prednisone (Prednisone 5 Mg Tab) 5 mg PO DAILY@0800 [facility] Last Admin: 01/16/22 08:26 Dose: 5 mg Physical exam: Patient is lying in the bed , awake, alert x2. Morbidly obese, well-developed, well-nourished HEENT: Normocephalic. Neck is supple. Pupils reactive. Nostrils clear. Oral cavity is moist. Neck reveals no JVD, carotid bruits, or thyromegaly. CHEST EXAMINATION: Trachea is central. Symmetrical expansion. diminished breath sounds bilaterally with no wheezing or rhonchi noted CARDIAC: Normal S1, S2 muffled ABDOMEN: Soft. Obese. Bowel sounds normal. No organomegaly. No abdominal bruits. Extremities: Right lower extremity wound and skin graft over the calf region noted. No discharge drainage noted today. No clubbing or cyanosis Neurologically awake, alert, oriented x2. Diffuse weakness noted. Skin: No rash or skin lesions. Psychiatric: Cooperative. lethargic Musculoskeletal: No joint swelling or deformity. Assessment: Recent right lower extremity cellulitis and calf wound infection with skin graft and was discharged home on cefepime and metronidazole from to be completed by 01/17/2022. Fever with chest x-ray findings of possible lung base infiltration/pneumonia. chronic subluxation of the left humeral head noted on xray Metabolic and toxic encephalopathy due to infection. improved. Coronary artery disease Chronic CHF. Ejection fraction not known. Moderate arthritis currently on Plaquenil and prednisone 5 mg daily Hypertension Hyperlipidemia DVT prophylaxis with heparin subcu Full code Plan: Patient will be continued on antibiotics the form of cefepime and Flagyl.. Wound care and ID following. Apparently per [facility] records patient was to continue with IV antibiotic therapy until 01/17/2022 and this was discussed with ID and patient is to receive last doses in am and will not require abx on discharge. Patient to follow up with [facility] on discharge. Recommend to continue with telemetry monitoring and cardiology following as needed Recommend to continue with current medications. Due to multiple complex medical issues, Prognosis is guarded time. Plan is to return to ECF on discharge once stable. Patient will discharge to [facility] in 24 hours. The impression and plan of care has been dictated by Jocelynn Nascimento, Nurse Practitioner as directed. Dr. Troy MD I have performed a history and examination and MDM of this patient, discussed the same with the dictator, and agree with the dictator's assessment and plan as written ,documented as a scribe. Based on total visit time, I have performed more than 50% of the visit. Objective - Vital Signs Vital signs: Vital Signs Temp 97.6 F 01/16/22 07:21 Pulse 71 01/16/22 07:21 Resp 16 01/16/22 07:21 BP 100/64 01/16/22 07:21 Pulse Ox 90 L 01/16/22 07:21 FiO2 Intake & Output 01/15/22 01/16/22 01/16/22 18:59 06:59 18:59 Intake Total 120 340 Output Total 1600 1800 Balance -1480 -1460 Weight 118.5 kg Intake: IV 240 Sodium Chloride 0.9% 1, 240 000 ml @ 20 mls/hr IV . Q24H [facility] Rx#:[id number] Intake, IV Titration 100 Amount Cefepime 2 gm In Sodium 100 Chloride 0.9% 100 ml @ 25 mls/hr IVPB Q12HR [facility] Rx #:[id number] Oral 120 Output: Urine 1600 1800 Other: Voiding Method External Catheter External Catheter # Bowel Movements 1 1 - Labs CBC & Chem 7: 01/15/22 04:32 01/15/22 04:35 Labs: Abnormal Lab Results - Last 24 Hours (Table) 01/15/22 Range/Units 04:35 Est GFR (CKD-EPI)NonAf 55.8 L (60.0-200.0)
[2022-01-17] MEDS: allopurinoL 300 MG TAB PO SCH (07:53)
[2022-01-17] MEDS: metroNIDAZOLE 500 MG TAB PO SCH ×3 (07:53→21:33)
[2022-01-17] MEDS: CYANOCOBALAMIN 500 MCG TAB PO SCH (07:53)
[2022-01-17] MEDS: HEPARIN SODIUM,PORCINE/PF 5,000 UNIT/0.5 ML SYRINGE SQ SCH ×2 (07:53→17:52)
[2022-01-17] MEDS: CHOLECALCIFEROL 125 MCG (5000 IU) TABLET PO SCH (07:53)
[2022-01-17] MEDS: ASPIRIN 81 MG PO SCH (07:53)
[2022-01-17] MEDS: predniSONE 5 MG TAB PO SCH (07:53)
[2022-01-17] MEDS: CEFEPIME 2 GM in SODIUM CHLORIDE 0.9% 100 ML IVPB SCH ×2 (07:54→21:32)
[2022-01-17] MEDS: HYDROXYCHLOROQUINE SULFATE 200 MG TAB PO SCH (09:37)
[2022-01-17] MEDS: METOPROLOL TARTRATE 50 MG TAB PO SCH ×2 (09:37→21:33)
[2022-01-17] MEDS: SODIUM CHLORIDE 0.9% 1,000 ML IV SCH (10:46)
[2022-01-17] MEDS: ONDANSETRON 4 MG/2 ML VIAL IVP PRN (13:43)
--- NOTE | 2022-01-17 15:30 | P.DS ---
Providers Date of admission: 01/07/22 17:59 Expected date of discharge: 01/17/22 Attending physician: Caridad Simmons Consults: 01/07/22 17:54 Consult Physician Routine Consulting Provider: Channing Ramsay Consult Reason/Comments: fever Do you want consulting provider notified?: Yes 01/13/22 18:14 Consult Physician Routine Consulting Provider: Augie Gould Consult Reason/Comments: arrhythmia Do you want consulting provider notified?: Yes 01/15/22 14:05 Consult Physician Urgent Consulting Provider: Ellie Mendieta Consult Reason/Comments: subluxation or dislocation noted on xray of humeral head Do you want consulting provider notified?: Yes Primary care physician: Physician Nonstaff Hospital Course: 71-year-old female with a known history of coronary artery disease, hypertension, hyperkalemia, rheumatoid arthritis was sent to Hospital from extended care facility due to altered mental status for the past 2 days. Apparently Patient was recently admitted to [facility] due to right lower extremity cellulitis and wound infection and was discharged to [facility] on cefepime and Flagyl. Patient is a poor historian and confused. Could not provide much history. De nied any complaints of leg pain. No fever no chills. No chest pain or shortness of breath. Denied any headache or dizziness or lightheadedness. Patient was febrile with T-max 101.1 on admission. Chest x-ray showed cardiomegaly with suspected pulmonary edema and questionable posterior lung infiltration in the lateral view. CT head showed no acute intracranial process. Nonspecific white matter changes. Likely secondary to chronic small ischemic disease. EKG showed sinus rhythm with premature atrial complexes. Laboratory data showed WBC 7.9 hemoglobin 10.1 and platelets 365 INR 1.3 Sodium 136 potassium 3.6 chloride 98 bicarb is 32 BUN 29 and creatinine 0.91 and blood sugar is 150 Pro-calcitonin level is 0.0 to Urinalysis showed cloudy with 2+ protein and moderate blood. Small leukocyte esterase. Influenza EA, B, RSV and covid 19 PCR not detected. 01/09/2022 Patient currently resting in the bed. Awake alert and oriented 2. Patient does have confusion and talking incoherently. Patient has been afebrile. Currently being continued on antibiotics in the form of cefepime and Flagyl with the recent infection and skin graft of the right calf region. There are any chest pain or shortness of breath. No cough or sputum production. No headache or dizziness or lightheadedness. 01/10/2022 Patient is currently resting in bed. Mental status is improving. Patient is more awake and alert. No complaints of chest pain or shortness of breath. Patient has been afebrile. No nausea vomiting or abdominal pain or diarrhea. Currently on antibiotics in the form of cefepime and Flagyl. Follow-up right lower extremity calf ulcer wound cultures. Skin graft was peeling off on one side. No purulent discharge noted. Wound dressing is being done. Laboratory data reviewed. Blood pressure is stable. 01/11/2022 Patient is awake alert and oriented. No complaints of chest pain. Denied any right lower extremity pain. No nausea vomiting abdominal diarrhea. Currently being continued on antibiotics in the form of cefepime and Flagyl. ID is on board. Patient is being cardiogram wound care. Laboratory showed WBC 4.6 hemoglobin 9.5 and platelets 275 Sodium 135 potassium 3.8 chloride 102 bicarb is 30 BUN 33 and creatinine 1.07. Calcium 8.1. Cultures not available. 01/13/2020 Patient is resting in the bed. Awake alert and oriented. No complaints of leg pain. On IV antibiotics. ID is on board. Continue with current antibiotics at this time. No nausea vomiting abdominal pain or diarrhea. Tolerating oral diet. Anticipate discharge [facility] care facility in the next 24 hours with final ID antibiotic recommendations. 01/13/2022 Patient is seen this morning and ID following. Cardiology consulted and recommend to continue with telemetry monitoring. Patient is maintained on oral flagyl and cefepime and awaiting [facility] records. Patient has non-functioning PICC, possibly occluded and will discuss with ID about discharge planning. Patient is afebrile and denies any chest pain or shortness of breath. HR elevated for a brief period at 119 and possible arrhythmia noted and cardiology has been consulted. Case management/social work following and plan is ECF return once stable. 01/14/2022 Patient is seen in follow-up this morning and continues on IV cefepime along with oral Flagyl and infectious disease following. Patient is status post debridement at [facility] and awaiting medical records. It was documented the infection with Pseudomonas and was to continue with IV antibiotics until 01/17/2022. Patient did have a PICC line that has been occluded and is scheduled to be removed by nursing staff. Will discuss further with infectious disease, but currently continuing with current treatment and finishing antibiotics 01/17/2022. Patient is afebrile and denies chest pain or shortness of breath. Patient is reporting some cough that is dry and hacking and requesting a cough syrup. Medications ordered. Patient also currently undergoing 2-D echo and cardiology now following. Recommend continue telemetry monitoring. Case management also following and will need to discuss further about discharge planning. PT/OT to evaluate the patient 01/15/2022 Patient is seen today and continues with local wound care and IV cefepime and flagyl with ID following. Plan is to continue with abx until the and will discuss with ID about requiring abx on discharge. Chest xray ordered as patient 02 saturations were 90%. Patient is on room air and denies chest pain or shortness of breath. Patient with weakness and will continue with PT following and plan is to return to rehab on discharge. Patient will need follow up with [facility] on discharge. Patient is afebrile. Some subluxation of the left shoulder noted along with some vascular congestion on the chest xray and consulted ortho and appreciate input and recommendations. 01/16/2022 Patient is seen this morning and maintained on IV cefepime and flagyl. ID following and discussed the plan and patient will receive last dose of abx on 01/17 am and then will be completed with abx therapy and able return to [facility]. Patient will not require antibiotics on discharge. Patient to continue with local wound care to the right lower extremity. Ortho evaluated for the shoulder and appears to be chronic as patient has full range of motion and will follow up in the outpatient setting. Patient is afebrile and denies chest pain or shortness of breath. 01/17/2022; patient remains stable and has been cleared for discharge Patient Condition at Discharge: Fair Plan - Discharge Summary Discharge Rx Participant: No New Discharge Prescriptions: Continue Baclofen [Lioresal] 10 mg PO TID@0600,1400,2200 Hydrocerin Cream 1 applic TOPICAL BID@08,1999 Docusate [Colace] 100 mg PO BID@799,1999 Cholecalciferol (Vitamin D3) [Vitamin D3 (125 MCG = 5,000 IU)] 250 mcg PO DAILY@0800 Omeprazole 20 mg PO HS@1999 Magnesium Chloride-Calcium 64-106 Mg 1 tab PO DAILY@0800 Loratadine 10 mg PO DAILY@0800 Furosemide [Lasix] 40 mg PO DAILY@0800 Cyanocobalamin [Vitamin B-12] 1,000 mcg PO DAILY@0800 Atorvastatin [Lipitor] 40 mg PO HS@1999 Aspirin EC [Ecotrin Low Dose] 81 mg PO DAILY@0800 Albuterol Nebulized [Ventolin Nebulized] 2.5 mg INHALATION RT-Q6H PRN PRN Reason: Shortness Of Breath HYDROcodone/APAP 10-325MG [Wolcott 10-325] 1 tab PO Q8H PRN PRN Reason: Pain Diclofenac Sodium Gel [Voltaren Gel] 1 applic TOPICAL QID@00,,, Sacubitril/Valsartan [Entresto 24 mg-26 mg Tablet] 1 tab PO BID@799,1999 polyethylene glycoL 3350 [Miralax] 17 gm PO DAILY@0800 carvediloL [Coreg] 3.125 mg PO BID@08,1999 Spironolactone [Aldactone] 25 mg PO DAILY@0800 PRN PRN Reason: HOLD FOR BP SYS <110 DIAST <60 predniSONE 5 mg PO DAILY@0800 Hydroxychloroquine Sulfate [Plaquenil] 200 mg PO DAILY@0900 Furosemide [Lasix] 20 mg PO DIRECTED Ferrous Sulfate [Iron (65 MG Elemental)] 325 mg PO DAILY@0800 allopurinoL 300 mg PO DAILY@0800 Gabapentin [Neurontin] 600 mg PO TID@0600,1400,2200 guaiFENesin-DM 100-10MG/5ML [Robitussin DM] 5 ml PO Q4H PRN PRN Reason: Cough Discontinued metroNIDAZOLE [Flagyl] 500 mg PO TID@0600,1400,2200 Cefepime [Maxipime] 2 gm IVP TID@0000,0800,1600 metroNIDAZOLE [Flagyl] 500 mg PO DIRECTED Discharge Medication List Albuterol Nebulized [Ventolin Nebulized] 2.5 mg INHALATION RT-Q6H PRN 01/07/22 [History] Aspirin EC [Ecotrin Low Dose] 81 mg PO DAILY@0800 01/07/22 [History] Atorvastatin [Lipitor] 40 mg PO HS@199901/07/22 [History] Baclofen [Lioresal] 10 mg PO TID@0600,1400,219901/07/22 [History] Cholecalciferol (Vitamin D3) [Vitamin D3 (125 MCG = 5,000 IU)] 250 mcg PO DAILY@0801/07/22 [History] Cyanocobalamin [Vitamin B-12] 1,000 mcg PO DAILY@79901/07/22 [History] Diclofenac Sodium Gel [Voltaren Gel] 1 applic TOPICAL QID@00,06,12,01/07/22 [History] Docusate [Colace] 100 mg PO BID@799,199901/07/22 [History] Ferrous Sulfate [Iron (65 MG Elemental)] 325 mg PO DAILY@79901/07/22 [History] Furosemide [Lasix] 20 mg PO DIRECTED 01/07/22 [History] Furosemide [Lasix] 40 mg PO DAILY@79901/07/22 [History] Gabapentin [Neurontin] 600 mg PO TID@0600,1400,219901/07/22 [History] HYDROcodone/APAP 10-325MG [Wolcott 10-325] 1 tab PO Q8H PRN 01/07/22 [History] Hydrocerin Cream 1 applic TOPICAL BID@799,199901/07/22 [History] Hydroxychloroquine Sulfate [Plaquenil] 200 mg PO DAILY@0901/07/22 [History] Loratadine 10 mg PO DAILY@0801/07/22 [History] Magnesium Chloride-Calcium 64-106 Mg 1 tab PO DAILY@79901/07/22 [History] Omeprazole 20 mg PO HS@199901/07/22 [History] Sacubitril/Valsartan [Entresto 24 mg-26 mg Tablet] 1 tab PO BID@08,199901/07/22 [History] Spironolactone [Aldactone] 25 mg PO DAILY@0800 PRN 01/07/22 [History] allopurinoL 300 mg PO DAILY@79901/07/22 [History] carvediloL [Coreg] 3.125 mg PO BID@08,199901/07/22 [History] guaiFENesin-DM 100-10MG/5ML [Robitussin DM] 5 ml PO Q4H PRN 01/07/22 [History] polyethylene glycoL 3350 [Miralax] 17 gm PO DAILY@0800 01/07/22 [History] predniSONE 5 mg PO DAILY@79901/07/22 [History] Follow up Appointment(s)/Referral(s): Moose Teague, PAC [PHYSICIAN FOR[employer]VENTION SPECIALIST] - 01/31/22 3:30 pm (Patient may follow-up with Moose Teague PA-C or Dr. Artem Mendieta at [facility] in 2 weeks following discharge. ) Nonstaff,Physician [Primary Care Provider] - 1-2 days Discharge Disposition: TRANSFER TO SNF/ECF
[2022-01-17] MEDS: ATORVASTATIN 40 MG TAB PO SCH (21:33)
[2022-01-17] MEDS: PANTOPRAZOLE 40 MG TABLET PO SCH (21:33)
[2022-01-17] MEDS: guaiFENesin SYRUP 100MG/5ML 200 MG/10 ML CUP PO PRN (21:50)
[2022-01-18] MEDS: SODIUM CHLORIDE 0.9% 1,000 ML IV SCH (01:08)
[2022-01-18] MEDS: HEPARIN SODIUM,PORCINE/PF 5,000 UNIT/0.5 ML SYRINGE SQ SCH ×2 (01:56→08:39)
[2022-01-18] MEDS: ACETAMINOPHEN TAB 325 MG TAB PO PRN ×2 (02:03→09:10)
[2022-01-18] MEDS: GABAPENTIN 300 MG CAP PO SCH (06:08)
[2022-01-18 08:38] VITALS: BP 113/59; PULSE 80; RESP 15; TEMP 98.5
[2022-01-18] MEDS: CHOLECALCIFEROL 125 MCG (5000 IU) TABLET PO SCH (08:38)
[2022-01-18] MEDS: CYANOCOBALAMIN 500 MCG TAB PO SCH (08:39)
[2022-01-18] MEDS: HYDROXYCHLOROQUINE SULFATE 200 MG TAB PO SCH (08:39)
[2022-01-18] MEDS: METOPROLOL TARTRATE 50 MG TAB PO SCH (08:39)
[2022-01-18] MEDS: predniSONE 5 MG TAB PO SCH (08:39)
[2022-01-18] MEDS: allopurinoL 300 MG TAB PO SCH (08:39)
[2022-01-18] MEDS: metroNIDAZOLE 500 MG TAB PO SCH (08:39)
[2022-01-18] MEDS: ASPIRIN 81 MG PO SCH (08:39)
[2022-01-18] MEDS: CEFEPIME 2 GM in SODIUM CHLORIDE 0.9% 100 ML IVPB SCH (08:40)
--- NOTE | 2022-01-24 14:08 | CDI ---
Your patient has the documented diagnosis of Chronic CHF per the H&P. Additional information regarding the [type, acuity] of CHF is requested. History/Risk Factors: 71yo F, tx for cellulitis w PICC line, metabolic and toxic enceph d/t to infection, CCHF, suspected pulm edema, lower ext cellulitis and calf non-healing ulceration w fatty layer exposed rt posterior infection w skin graft, PVC, msc fever, hypok+, anemia Clinical Indicators: VS/Pulse OX: 90 % RA no cooperative Echocardiogram Results: EF 50-55 % Chest X Ray: Cardiomegaly with suspected pulmonary edema and questionable posterior lung base infiltration in the lateral view as described above, please correlate clinically. Treatment: Recommend to continue with current medications. In your professional opinion, can you please clarify the [acuity and type] of CHF if known? [ ] Chronic Systolic Heart Failure (reduced EF) [ ] Acute on Chronic Systolic Heart Failure (reduced EF) [ ] Chronic Diastolic Heart Failure (preserved EF) [ ] Acute on Chronic Diastolic Heart Failure (preserved EF) [ ] Chronic Systolic & Diastolic Heart Failure [ ] Acute on Chronic Heart Failure Systolic & Diastolic Heart Failure [ ] Other, please specify [ ] Unable to determine (Template Last Revised: August 2020) Chronic Diastolic Heart Failure (preserved EF) AGATHAD
--- NOTE | 2022-01-25 23:57 | P.PN ---
Subjective Progress Note Date: 01/15/22 Principal diagnosis: Fever Patient is a 71-year-old female with multiple comorbidities and alf resident, with a recent admission at [facility] treated for right lower extremity cellulitis and the patient did have placement to the right posterior leg wound and was treated with IV cefepime and Flagyl presenting to the hospital for no blood pressure and mental status changes. On today's evaluation that is 01/15/2022, the patient remains to be afebrile, patient is breathing comfortably on room air, the patient denies any chest pain . The patient denies abdominal pain and no diarrhea Objective - Vital Signs Vital signs: Vital Signs Temp 98.5 F 01/15/22 07:34 Pulse 64 01/15/22 07:34 Resp 18 01/15/22 07:34 BP 122/64 01/15/22 07:34 Pulse Ox 90 L 01/15/22 07:34 FiO2 Intake & Output 01/14/22 01/15/22 01/15/22 18:59 06:59 18:59 Intake Total 120 Output Total 300 600 Balance -300 -600 120 Weight 118.5 kg Intake: Oral 120 Output: Urine 300 600 Stool 0 Other: Voiding Method External Catheter External Catheter External Catheter - Exam GENERAL DESCRIPTION: An elderly female lying in bed in no distress RESPIRATORY SYSTEM: Unlabored breathing , decreased breath sounds at bases HEART: S1 S2 regular rate and rhythm , ABDOMEN: Soft , no tenderness EXTREMITIES: Right posterior leg wound with the attached graft, dressing change by the nurses to mention graft looks good - Labs CBC & Chem 7: 01/15/22 04:32 01/15/22 04:35 Labs: Abnormal Lab Results - Last 24 Hours (Table) 01/15/22 01/15/22 Range/Units 04:32 04:35 RBC 3.12 L (3.80-5.40) m/uL Hgb 9.1 L (11.4-16.0) gm/dL Hct 31.0 L (34.0-46.0) % MCHC 29.4 L (31.0-37.0) g/dL RDW 17.2 H (11.5-15.5) % Est GFR (CKD-EPI)NonAf 55.8 L (60.0-200.0) Assessment and Plan (1) Pyrexia Status: Acute Code(s): R50.9 - FEVER, UNSPECIFIED SNOMED Code(s): 370223548 Plan: 1patient presented to hospital with mental status changes in this patient who did have a fever and recently treated at the [facility] for right lower extremity wound and cellulitis currently did have a graft to the right posterior leg wound area but no surrounding cellulitis or any foul-smelling drainage, patient abdominal soft on clinical examination urine was mildly positive, chest x-ray with no definite consolidation most interstitial infiltrate however the patient did have elevated pro calcitonin and a possible component of pneumonia as no other obvious focus of infection. 2 dry protective dressing to the right posterior leg graft area and keep the area of the pressure. 3patient had shown clinical improvement and will continue with cefepime and Flagyl, and infectious disease consult from [facility] were reviewed and the patient was getting cefepime and Flagyl for the right lower extremity wound infection debridement done by podiatry CT did not show any necrotizing infection end date of cefepime and Flagyl and 01/17/2022 , which the patient able to complete here Time with Patient: Less than 30
--- NOTE | 2022-01-25 23:58 | P.PN ---
Subjective Progress Note Date: 01/16/22 Principal diagnosis: Fever Patient is a 71-year-old female with multiple comorbidities and detention resident, with a recent admission at [facility] treated for right lower extremity cellulitis and the patient did have placement to the right posterior leg wound and was treated with IV cefepime and Flagyl presenting to the hospital for no blood pressure and mental status changes. On today's evaluation that is 01/16/2022, the patient denies any fever or chil ls, patient is breathing comfortably on room air, the patient denies any chest pain shortness of breath or cough, denies abdominal pain and no diarrhea Objective - Vital Signs Vital signs: Vital Signs Temp 97.6 F 01/16/22 07:21 Pulse 71 01/16/22 07:21 Resp 16 01/16/22 07:21 BP 100/64 01/16/22 07:21 Pulse Ox 90 L 01/16/22 07:21 FiO2 Intake & Output 01/15/22 01/16/22 01/16/22 18:59 06:59 18:59 Intake Total 120 340 Output Total 1600 1800 Balance -1480 -1460 Weight 118.5 kg Intake: IV 240 Sodium Chloride 0.9% 1, 240 000 ml @ 20 mls/hr IV . Q24H [facility] Rx#:[id number] Intake, IV Titration 100 Amount Cefepime 2 gm In Sodium 100 Chloride 0.9% 100 ml @ 25 mls/hr IVPB Q12HR [facility] Rx #:[id number] Oral 120 Output: Urine 1600 1800 Other: Voiding Method External Catheter External Catheter # Bowel Movements 1 1 - Exam GENERAL DESCRIPTION: An elderly female lying in bed in no distress RESPIRATORY SYSTEM: Unlabored breathing , decreased breath sounds at bases HEART: S1 S2 regular rate and rhythm , ABDOMEN: Soft , no tenderness EXTREMITIES: Right posterior leg wound with the attached graft is dressed no drainage on the dressing - Labs CBC & Chem 7: 01/15/22 04:32 01/15/22 04:35 Assessment and Plan (1) Pyrexia Status: Acute Code(s): R50.9 - FEVER, UNSPECIFIED SNOMED Code(s): 395861371 Plan: 1patient presented to hospital with mental status changes in this patient who did have a fever and recently treated at the [facility] for right lower extremity wound and cellulitis currently did have a graft to the right posterior leg wound area but no surrounding cellulitis or any foul-smelling drainage, patient abdominal soft on clinical examination urine was mildly positive, chest x-ray with no definite consolidation most interstitial infiltrate however the patient did have elevated pro calcitonin and a possible component of pneumonia as no other obvious focus of infection. 2 patient had shown clinical improvement and will continue with cefepime and Flagyl, and infectious disease consult from [place] were reviewed and the patient was getting cefepime and Flagyl for the right lower extremity wound infection debridement done by podiatry CT did not show any necrotizing infection end date of cefepime and Flagyl and 01/17/2022 , dry protective dressing to the right posterior leg graft area and keep the area of the pressure. Time with Patient: Less than 30
--- NOTE | 2022-01-26 | P.PN ---
Subjective Progress Note Date: 01/17/22 Principal diagnosis: Fever Patient is a 71-year-old female with multiple comorbidities and senior care resident, with a recent admission at [facility] treated for right lower extremity cellulitis and the patient did have placement to the right posterior leg wound and was treated with IV cefepime and Flagyl presenting to the hospital for no blood pressure and mental status changes. On today's evaluation that is 01/17/2022, the patient remains to be afebrile, patient is breathing comfortably on room air, the patient denies any chest pain shortness of breath did have occasional dry cough, denies abdominal pain and no diarrhea and denies pain to the right leg wound area Objective - Vital Signs Vital signs: Vital Signs Temp 97.6 F 01/17/22 08:00 Pulse 89 01/17/22 08:00 Resp 18 01/17/22 08:00 BP 111/61 01/17/22 08:00 Pulse Ox 93 L 01/17/22 08:00 FiO2 Intake & Output 01/16/22 01/17/22 01/17/22 18:59 06:59 18:59 Intake Total 175 Output Total 850 300 Balance -850 -125 Intake: IV 75 Sodium Chloride 0.9% 1, 75 000 ml @ 20 mls/hr IV . Q24H [facility] Rx#:[id number] Intake, IV Titration 100 Amount Cefepime 2 gm In Sodium 100 Chloride 0.9% 100 ml @ 25 mls/hr IVPB Q12HR [facility] Rx #:[id number] Output: Urine 850 300 Other: Voiding Method External Catheter External Catheter - Exam GENERAL DESCRIPTION: An elderly female lying in bed in no distress RESPIRATORY SYSTEM: Unlabored breathing , decreased breath sounds at bases HEART: S1 S2 regular rate and rhythm , ABDOMEN: Soft , no tenderness EXTREMITIES: Right posterior leg wound with the attached graft is dressed no drainage on the dressing - Labs CBC & Chem 7: 01/15/22 04:32 01/15/22 04:35 Assessment and Plan (1) Pyrexia Status: Acute Code(s): R50.9 - FEVER, UNSPECIFIED SNOMED Code(s): 192736382 Plan: 1patient presented to hospital with mental status changes in this patient who did have a fever and recently treated at the [facility] for right lower extremity wound and cellulitis currently did have a graft to the right posterior leg wound area but no surrounding cellulitis or any foul-smelling drainage, patient abdominal soft on clinical examination urine was mildly positive, chest x-ray with no definite consolidation most interstitial infiltrate however the patient did have elevated pro calcitonin and a possible component of pneumonia as no other obvious focus of infection. 2 patient records from [facility] were reviewed and the patient was getting cefepime and Flagyl for the right lower extremity wound infection debridement done by podiatry CT did not show any necrotizing infection end date of cefepime and Flagyl and 01/17/2022 , patient has shown overall clinical improvement and has received adequate antibiotic therapy, patient to continue with dry protective dressing to the right posterior leg graft area and keep the area of the pressure.
--- NOTE | 2022-01-26 00:01 | P.PN ---
Subjective Progress Note Date: 01/18/22 Principal diagnosis: Fever Patient is a 71-year-old female with multiple comorbidities and jail resident, with a recent admission at [facility] treated for right lower extremity cellulitis and the patient did have placement to the right posterior leg wound and was treated with IV cefepime and Flagyl presenting to the hospital for no blood pressure and mental status changes. On today's evaluation that is 01/18/2022, the patient denies any fever or chil ls, patient is breathing comfortably on room air, the patient denies any chest pain shortness of breath no significant cough, the patient denies abdominal pain and no diarrhea and denies pain to the right leg wound area Objective - Vital Signs Vital signs: Vital Signs Temp 98.5 F 01/18/22 08:00 Pulse 80 01/18/22 08:00 Resp 15 01/18/22 08:00 BP 113/59 01/18/22 08:00 Pulse Ox 92 L 01/18/22 08:00 FiO2 Intake & Output 01/17/22 01/18/22 01/18/22 18:59 06:59 18:59 Output Total 300 250 Balance -300 -250 Output: Urine 300 250 Other: Voiding Method External Catheter External Catheter External Catheter # Bowel Movements 1 - Exam GENERAL DESCRIPTION: An elderly female lying in bed in no distress RESPIRATORY SYSTEM: Unlabored breathing , decreased breath sounds at bases HEART: S1 S2 regular rate and rhythm , ABDOMEN: Soft , no tenderness EXTREMITIES: Right posterior leg wound with the attached graft is dressed no drainage on the dressing - Labs CBC & Chem 7: 01/15/22 04:32 01/15/22 04:35 Assessment and Plan (1) Pyrexia Status: Acute Code(s): R50.9 - FEVER, UNSPECIFIED SNOMED Code(s): 034184809 Plan: 1patient presented to hospital with mental status changes in this patient who did have a fever and recently treated at the [facility] for right lower extremity wound and cellulitis currently did have a graft to the right posterior leg wound area but no surrounding cellulitis or any foul-smelling drainage, patient abdominal soft on clinical examination urine was mildly positive, chest x-ray with no definite consolidation most interstitial infiltrate however the patient did have elevated pro calcitonin and a possible component of pneumonia as no other obvious focus of infection. 2 patient records from [facility] were reviewed and the patient was getting cefepime and Flagyl for the right lower extremity wound infection debridement done by podiatry CT did not show any necrotizing infection end date of cefepime and Flagyl and 01/17/2022 , patient has received adequate antibiotic therapy for underlying infection hence no need for any antibiotic on discharge, patient to continue with dry protective dressing to the right posterior leg graft area and keep the area of the pressure. Time with Patient: Less than 30
== END 2022-01-18 14:05 | DRG 91 ==
LOC: EC 13:30 → 4SSUR 17:59
PROVIDERS: ADMIT Hospitalist; ATTEND Hospitalist
DX: G92.8 Other toxic encephalopathy (principal); J18.9 Pneumonia, unspecified organism; L03.115 Cellulitis of right lower limb; T86.828 Other complications of skin graft (allograft) (autograft); L97.212 Non-pressure chronic ulcer of right calf with fat layer exposed; I31.3 Pericardial effusion (noninflammatory); T82.594A Other mechanical complication of infusion catheter, initial encounter; Z68.41 Body mass index [BMI] 40.0-44.9, adult; I50.32 Chronic diastolic (congestive) heart failure; I11.0 Hypertensive heart disease with heart failure; M06.9 Rheumatoid arthritis, unspecified; D64.9 Anemia, unspecified; E66.01 Morbid (severe) obesity due to excess calories; I25.10 Atherosclerotic heart disease of native coronary artery without angina pectoris; R42 Dizziness and giddiness; E78.5 Hyperlipidemia, unspecified; K21.9 Gastro-esophageal reflux disease without esophagitis; Z20.822 Contact with and (suspected) exposure to COVID-19; I49.3 Ventricular premature depolarization; E87.6 Hypokalemia; Z96.653 Presence of artificial knee joint, bilateral; S43.002A Unspecified subluxation of left shoulder joint, initial encounter; E87.5 Hyperkalemia; I49.1 Atrial premature depolarization; R11.0 Nausea; R53.1 Weakness; B96.5 Pseudomonas (aeruginosa) (mallei) (pseudomallei) as the cause of diseases classified elsewhere; M19.90 Unspecified osteoarthritis, unspecified site; R01.1 Cardiac murmur, unspecified; R03.1 Nonspecific low blood-pressure reading; D72.810 Lymphocytopenia; Z96.643 Presence of artificial hip joint, bilateral; M85.812 Other specified disorders of bone density and structure, left shoulder; Y71.1 Therapeutic (nonsurgical) and rehabilitative cardiovascular devices associated with adverse incidents; Z79.82 Long term (current) use of aspirin; Z79.899 Other long term (current) drug therapy; Z79.52 Long term (current) use of systemic steroids; Z88.0 Allergy status to penicillin; Z88.2 Allergy status to sulfonamides; Z91.041 Radiographic dye allergy status; Z88.8 Allergy status to other drugs, medicaments and biological substances; Z91.013 Allergy to seafood
CPT/HCPCS: 36415; 70450; 71045; 71046; 80048; 80053; 81001; 82140; 83605; 83735; 84145; 84443; 85025; 85610; 85730; 87636; 93005; 93306; 94640; 94760; 96365; 96367; 96375; 99285